=== PATIENT | male | born 1945 | race Caucasian/White ===

== ENCOUNTER 2021-10-25 02:02 | Inpatient (IN) ==
[2021-10-25 02:56] LABS: Basophils # (auto) 0.03 K/uL (0-0.2); Basophils % (auto) 0.7 %; Eosinophils # (auto) 0.19 K/uL (0-0.50); Eosinophils % (auto) 4.6 %; Hematocrit (blood only) 25.6 % (40.1-51.0); Hemoglobin 8.1 g/dl (14.0-18.0); Immature Granulocytes # (auto) 0.02 K/uL (0.00-0.02); Immature Granulocytes % (auto) 0.5 %; Lymphocytes # (auto) 0.22 K/uL (1.2-3.4); Lymphocytes % (auto) 5.4 %; Mean Corpuscular Hemoglobin 29.7 pg (25.0-34.0); Mean Corpuscular Hgb Conc 31.6 g/dL (32.0-36.0); Mean Corpuscular Volume 93.8 fL (80.0-100.0); Mean Platelet Volume 10.8 fL (9.4-12.4); Monocytes # (auto) 0.37 K/uL (0.24-0.82); Neutrophils # (auto) 3.26 K/uL (1.4-6.5); Neutrophils % (auto) 79.8 %; Platelet Count 273 K/uL (130-400); RDW Coefficient of Variation 13.9 % (11.5-14.5); RDW Standard Deviation 47.3 fL (36.4-46.3); Red Blood Count 2.73 M/uL (4.63-6.08); White Blood Count 4.09 K/ul (4.8-10.8)
[2021-10-25] MEDS ORDERED: ONDANSETRON INJ 2 MG/ML 2 ML VIAL ONE (03:07)
[2021-10-25 03:09] LABS: Albumin Level 3.3 gm/dl (3.4-5.0); BUN Creatinine Ratio 20.6 (10-20); Bilirubin,Total 0.5 mg/dl (0.2-1.0); Calcium 8.7 mg/dl (8.5-10.1); Creatinine Clr Calc Pharmacy 29.8 ml/min; Est GFR (African American) 27.2 ml/min; Est GFR (Non-African American) 23.5 ml/min; Magnesium 1.9 mg/dl (1.7-2.4); Potassium 4.9 mmol/L (3.5-5.1)
[2021-10-25 03:10] LABS: INR 1.3 (0.9-1.1); Partial Thromboplastin Ratio 0.9; Partial Thromboplastin Time 24.8 Seconds (21.0-31.0); Prothrombin Time 13.4 Seconds (9.0-12.0)
[2021-10-25 03:24] LABS: Globulin 3.2 gm/dl (2.5-4.0); Total Protein 6.5 gm/dl (6.0-8.3)
[2021-10-25] MEDS ORDERED: ACETAMINOPHEN 1,000 MG/100 ML VIAL IV STA (03:46)
[2021-10-25 04:10] LABS: Appearance Urine Clear (Clear); Bilirubin Urine Negative (Negative); Blood Urine 2+ (Negative); Color Urine Yellow; Glucose Urine UA Negative (Negative); Ketones Urine Negative (Negative); Leukocyte Esterase Urine Negative (Negative); Nitrite Urine Negative (Negative); Protein Urine 1+ (Negative); Urobilinogen Urine Negative (Negative); pH Urine 5.5 (4.5-7.5)
[2021-10-25 04:35] LABS: Bacteria Urine Negative (Negative); Epithelial Cell Urine 0-5 /lpf (0-5); RBC Urine 0-4 /hpf (0-4); WBC Urine 0-5 /hpf (0-5)
[2021-10-25 04:47] LABS: Influenza A virus by PCR Negative (Neg); Influenza B virus by PCR Negative (Neg); RSV by PCR Negative (Neg); SARS CoV2 RNA(COVID-19) InHosp NEGATIVE (Negative)
--- NOTE | 2021-10-25 04:56 | Emergency Department Note ---
Impression & Plan Bilateral cellulitis of lower leg, Anemia, Chronic renal insufficiency, Fall Admit to the [facility] ED Provider Note NAME: DREW ROGER AGE: 76 SEX: M ARRIVES VIA: Ambulance INFORMANT: Patient and his ED PROVIDER(S): Marleny Quiles DO CHIEF COMPLAINT: Fall PLAN: Disposition: Admit to the [facility] Condition: Stable MEDICAL DECISION MAKING: This is a 76-year-old male patient who presents to the emergency department by EMS after he fell at home. Triage Nursing notes reviewed and agree with them. Additional history obtained from his is at the bedside Prior medical records reviewed in the [facility] system Vital Signs: reviewed and remarkable for fever, tachycardia Differential diagnosis: Sepsis, UTI, cellulitis, acute kidney injury, pneumonia ER treatment provided: IV acetaminophen IV Rocephin Diagnostics interpreted by me: ECG: Sinus rhythm at a rate of [address] segment elevation or signs of ischemia. There is no ectopy. Cardiac Monitoring: Normal sinus rhythm at 90 Laboratory studies: See below Imaging studies: As per my interpretation Portable chest x-ray: Cardiomegaly with pulmonary vascular congestion; questionable right lower lobe opacity HPI: 76/M arrives for evaluation of fall. She witnessed the patient suffer a f all at home and she was unable to get him up off the floor. She called EMS. The patient had recently been treated over the past 2 days for cellulitis of the legs. He had ultrasound Dopplers of the legs which were negative for DVT and received an antibiotic shot at his PCP office. Patient was then to be febrile upon presentation here to the emergency department. Patient has become increasingly weak over the past 2 days. ROS: See above HPI for pertinent positives & negatives. A total of 10 systems reviewed and were otherwise negative with the help of the patient's answering questions. MEDICAL HISTORY:Recurrent cellulitis of the leg; hypertension; hypercholesterolemia PAST SURGICAL HISTORY:See Below FAMILY HISTORY:See Below SOCIAL HISTORY:Patient lives with his HOME MEDICATIONS:See list ALLERGIES:See list VITALS:See Below PHYSICAL EXAMINATION: Neuro: The patient is persistently moving about the bed, especially his legs. HEENT: Head - normocephalic and atraumatic. Pupils are equal, round, and reactive to light. Extraocular eye muscles are intact, and sclera are anicteric. Nose - moist nasal mucosa without discharge. Mouth - moist buccal mucosa. Oropharynx is nonerythematous and there is no tonsillar exudate or edema noted. Neck: Supple; no cervical lymphadenopathy noted. Heart: Regular rate and rhythm. There is a normal S1 and S2 with no murmurs, clicks, or gallops appreciated. Lungs: Clear to auscultation bilaterally with no wheezes, rales, or rhonchi. Abdomen: Soft, completely nontender, nondistended, with good bowel sounds. There are no palpable pulsatile masses or hepatosplenomegaly. There is no guarding, rigidity, or rebound noted. Extremities: Erythema to both lower legs of tib/fib region. Skin: Dull, warm and dry with good turgor and no rashes. ED COURSE: Times/Reassessments: 0300: The patient was evaluated in room B 11. A complete history and physical was performed. A septic protocol was performed. An order was placed for continuous cardiac monitoring. The patient was in a sinus tachycardia at 104. Chest x-ray was performed. Patient was given a dose of IV Rocephin. Patient was given an oral dose of Tylenol for his fever. 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 Beliefs That Will Affect Care: None Current Living Situation: Spouse Other Information That Helps Us Care for You: No Feels Safe at Home: Yes Safety Concerns: Feels Safe At This Time Allergies Allergies Allergy/AdvReac Type Severity Reaction Status Date / Time Sulfa (Sulfonamide Allergy Mild rash Verified 12/25/12 11:22 Antibiotics) Home Meds Home Medications Medication Instructions Recorded Confirmed Metoprolol Tartrate (Lopressor) 50 mg PO BID ##0 09/28/09 (Lopressor) Multivitamin 1 tab PO DAILY ##0 09/28/09 Nitroglycerin (Nitrostat) 0.4 mg UT PRN ##0 09/28/09 Tamsulosin Hcl (Flomax *) 0.4 mg PO QAM ##0 09/28/09 Docusate Sodium (Colace *) 100 mg PO Q2D ##0 10/02/09 Methocarbamol (Robaxin) 750 mg PO Q6HWA ##0 10/02/09 Oxycodone Hcl (Oxycontin (Ext Rel) 60 mg PO BID ##0 10/02/09 *) Trazodone Hcl (Desyrel *) 100 mg PO HS ##0 10/02/09 nystatin powder 1 applic transdermal HS ##0 10/02/09 Gabapentin (Neurontin) 800 mg PO BID ##0 10/10/09 Aspirin (Aspirin Tab-Chewable *) 1 tab PO QAM ##0 10/25/09 amlodipine 10 mg tablet 10 mg PO DAILY 10/25/21 10/25/21 citalopram 20 mg tablet 20 mg PO DAILY 10/25/21 10/25/21 fenofibrate micronized 134 mg 134 mg PO DAILY 10/25/21 10/25/21 capsule mirabegron 50 mg tablet,extended 50 mg PO DAILY 10/25/21 10/25/21 release 24 hr (Myrbetriq) prednisone 5 mg tablet 10 mg PO DAILY 10/25/21 10/25/21 solifenacin 10 mg tablet (Vesicare) mg PO 10/25/21 Results & Data (ED) Vital Signs Vital Signs - 24 hr 10/25/21 04:55 10/25/21 04:57 10/25/21 04:30 Temperature 39.2 C H Temperature Source Oral Pulse Rate 99 H Pulse Rate [Apical] Pulse Rate from SpO2 Sensor Respiratory Rate 25 H Respiratory Effort / Characteristics Non-Labored Spontaneous Respiratory Depth Blood Pressure Blood Pressure Mean Pulse Oximetry 90 91 Oxygen Delivery Method Nasal Cannula Oxygen Flow Rate 2.5 10/25/21 04:31 10/25/21 04:31 10/25/21 04:45 Temperature Temperature Source Pulse Rate 100 H 97 H Pulse Rate [Apical] Pulse Rate from SpO2 Sensor Respiratory Rate 23 23 Respiratory Effort / Characteristics Respiratory Depth Blood Pressure 138/53 L Blood Pressure Mean 81 Pulse Oximetry 92 90 Oxygen Delivery Method Oxygen Flow Rate 10/25/21 05:00 10/25/21 05:00 10/25/21 05:15 Temperature Temperature Source Pulse Rate Pulse Rate [Apical] 90 87 Pulse Rate from SpO2 Sensor Respiratory Rate Respiratory Effort / Characteristics Respiratory Depth Blood Pressure Blood Pressure Mean Pulse Oximetry 95 Oxygen Delivery Method Nasal Cannula Oxygen Flow Rate 4 10/25/21 05:30 10/25/21 05:45 10/25/21 05:30 Temperature Temperature Source Pulse Rate Pulse Rate [Apical] 89 Pulse Rate from SpO2 Sensor Respiratory Rate 22 Respiratory Effort / Characteristics Non-Labored Respiratory Depth Normal Blood Pressure Blood Pressure Mean Pulse Oximetry Oxygen Delivery Method Nasal Cannula Oxygen Flow Rate 10/25/21 05:00 10/25/21 05:00 10/25/21 05:15 Temperature Temperature Source Pulse Rate 89 85 Pulse Rate [Apical] Pulse Rate from SpO2 Sensor 89 85 Respiratory Rate 15 23 Respiratory Effort / Characteristics Respiratory Depth Blood Pressure 143/63 H Blood Pressure Mean 89 Pulse Oximetry 90 96 Oxygen Delivery Method Oxygen Flow Rate 10/25/21 05:30 10/25/21 05:30 10/25/21 05:45 Temperature Temperature Source Pulse Rate 84 82 Pulse Rate [Apical] Pulse Rate from SpO2 Sensor 85 82 Respiratory Rate 21 20 Respiratory Effort / Characteristics Respiratory Depth Blood Pressure 149/51 H Blood Pressure Mean 83 Pulse Oximetry 91 94 Oxygen Delivery Method Oxygen Flow Rate 10/25/21 05:56 10/25/21 06:00 10/25/21 06:00 Temperature 38.5 C H Temperature Source Oral Pulse Rate Pulse Rate [Apical] Pulse Rate from SpO2 Sensor Respiratory Rate Respiratory Effort / Characteristics Non-Labored Spontaneous Respiratory Depth Blood Pressure 139/51 L Blood Pressure Mean 80 Pulse Oximetry Oxygen Delivery Method Oxygen Flow Rate 10/25/21 06:00 10/25/21 06:15 10/25/21 06:30 Temperature Temperature Source Pulse Rate 81 88 79 Pulse Rate [Apical] Pulse Rate from SpO2 Sensor Respiratory Rate 21 14 15 Respiratory Effort / Characteristics Respiratory Depth Blood Pressure 155/62 H Blood Pressure Mean 93 Pulse Oximetry 93 98 97 Oxygen Delivery Method Nasal Cannula Oxygen Flow Rate 2.5 Laboratory Data Result diagrams: 10/25/21 02:26 10/25/21 02:26 Lab Results 10/25/21 10/25/21 10/25/21 Range/Units 02:26 02:26 02:26 WBC 4.09 L (4.8-10.8) K/ul RBC 2.73 L (4.63-6.08) M/uL Hgb 8.1 L (14.0-18.0) g/dl Hct 25.6 L (40.1-51.0) % MCV 93.8 (80.0-100.0) fL MCH 29.7 (25.0-34.0) pg MCHC 31.6 L (32.0-36.0) g/dL RDW Std Deviation 47.3 H (36.4-46.3) fL RDW Coeff of Sarah 13.9 (11.5-14.5) % Plt Count 273 (130-400) K/uL MPV 10.8 (9.4-12.4) fL Immature Gran % (Auto) 0.5 % Neut % (Auto) 79.8 % Lymph % (Auto) 5.4 % [place] % (Auto) 9.0 % Eos % (Auto) 4.6 % Baso % (Auto) 0.7 % Neut # (Auto) 3.26 (1.4-6.5) K/uL Lymph # (Auto) 0.22 L (1.2-3.4) K/uL [place] # (Auto) 0.37 (0.24-0.82) K/uL Eos # (Auto) 0.19 (0-0.50) K/uL Baso # (Auto) 0.03 (0-0.2) K/uL Immature Gran # (Auto) 0.02 (0.00-0.02) K/uL PT 13.4 H (9.0-12.0) Seconds INR 1.3 H (0.9-1.1) APTT 24.8 (21.0-31.0) Seconds PTT Ratio 0.9 Sodium 138 (136-145) mmol/L Potassium 4.9 (3.5-5.1) mmol/L Chloride 105 (98-107) mmol/L Carbon Dioxide 25 (21-32) mmol/L Anion Gap 8 (3-11) BUN 52 H (6-23) mg/dl Creatinine 2.52 H (0.6-1.4) mg/dl Est Cr Clr Drug Dosing 29.8 ml/min Est GFR ( Amer) 27.2 ml/min Est GFR (Non-Af Amer) 23.5 ml/min BUN/Creatinine Ratio 20.6 H (10-20) Glucose 124 H (70-99(Fasting)) mg/dl Lactate (0.4-2.0) mmol/L Calcium 8.7 (8.5-10.1) mg/dl Magnesium 1.9 (1.7-2.4) mg/dl Total Bilirubin 0.5 (0.2-1.0) mg/dl AST 28 (13-39) U/L ALT 16 (7-52) U/L Alkaline Phosphatase 39 (34-104) U/L Total Protein 6.5 (6.0-8.3) gm/dl Albumin 3.3 L (3.4-5.0) gm/dl Globulin 3.2 (2.5-4.0) gm/dl Albumin/Globulin Ratio 1.0 (0.9-2) Procalcitonin (0-0.5) ng/ml Urine Color Urine Appearance (Clear) Urine pH (4.5-7.5) Ur Specific [place] (1.000-1.030) Urine Protein (Negative) Urine Glucose (UA) (Negative) Urine Ketones (Negative) Urine Blood (Negative) Urine Nitrite (Negative) Urine Bilirubin (Negative) Urine Urobilinogen (Negative) Ur Leukocyte Esterase (Negative) Urine RBC (0-4) /hpf Urine WBC (0-5) /hpf Ur Epithelial Cells (0-5) /lpf Urine Bacteria (Negative) Lyme Disease IgG Ab (Negative) Lyme Disease IgM Ab (Negative) SARS-CoV-2 (PCR) (Negative) Influenza Type A (PCR) (Neg) Influenza Type B (PCR) (Neg) RSV (RT-PCR) (Neg) 10/25/21 10/25/21 10/25/21 Range/Units 02:26 02:26 03:47 WBC (4.8-10.8) K/ul RBC (4.63-6.08) M/uL Hgb (14.0-18.0) g/dl Hct (40.1-51.0) % MCV (80.0-100.0) fL MCH (25.0-34.0) pg MCHC (32.0-36.0) g/dL RDW Std Deviation (36.4-46.3) fL RDW Coeff of Sarah (11.5-14.5) % Plt Count (130-400) K/uL MPV (9.4-12.4) fL Immature Gran % (Auto) % Neut % (Auto) % Lymph % (Auto) % [place] % (Auto) % Eos % (Auto) % Baso % (Auto) % Neut # (Auto) (1.4-6.5) K/uL Lymph # (Auto) (1.2-3.4) K/uL [place] # (Auto) (0.24-0.82) K/uL Eos # (Auto) (0-0.50) K/uL Baso # (Auto) (0-0.2) K/uL Immature Gran # (Auto) (0.00-0.02) K/uL PT (9.0-12.0) Seconds INR (0.9-1.1) APTT (21.0-31.0) Seconds PTT Ratio Sodium (136-145) mmol/L Potassium (3.5-5.1) mmol/L Chloride (98-107) mmol/L Carbon Dioxide (21-32) mmol/L Anion Gap (3-11) BUN (6-23) mg/dl Creatinine (0.6-1.4) mg/dl Est Cr Clr Drug Dosing ml/min Est GFR ( Amer) ml/min Est GFR (Non-Af Amer) ml/min BUN/Creatinine Ratio (10-20) Glucose (70-99(Fasting)) mg/dl Lactate 1.1 (0.4-2.0) mmol/L Calcium (8.5-10.1) mg/dl Magnesium (1.7-2.4) mg/dl Total Bilirubin (0.2-1.0) mg/dl AST (13-39) U/L ALT (7-52) U/L Alkaline Phosphatase (34-104) U/L Total Protein (6.0-8.3) gm/dl Albumin (3.4-5.0) gm/dl Globulin (2.5-4.0) gm/dl Albumin/Globulin Ratio (0.9-2) Procalcitonin 0.11 (0-0.5) ng/ml Urine Color Yellow Urine Appearance Clear (Clear) Urine pH 5.5 (4.5-7.5) Ur Specific [place] 1.020 (1.000-1.030) Urine Protein 1+ H (Negative) Urine Glucose (UA) Negative (Negative) Urine Ketones Negative (Negative) Urine Blood 2+ H (Negative) Urine Nitrite Negative (Negative) Urine Bilirubin Negative (Negative) Urine Urobilinogen Negative (Negative) Ur Leukocyte Esterase Negative (Negative) Urine RBC 0-4 (0-4) /hpf Urine WBC 0-5 (0-5) /hpf Ur Epithelial Cells 0-5 (0-5) /lpf Urine Bacteria Negative (Negative) Lyme Disease IgG Ab Negative (Negative) Lyme Disease IgM Ab Negative (Negative) SARS-CoV-2 (PCR) (Negative) Influenza Type A (PCR) (Neg) Influenza Type B (PCR) (Neg) RSV (RT-PCR) (Neg) 10/25/21 Range/Units 03:59 WBC (4.8-10.8) K/ul RBC (4.63-6.08) M/uL Hgb (14.0-18.0) g/dl Hct (40.1-51.0) % MCV (80.0-100.0) fL MCH (25.0-34.0) pg MCHC (32.0-36.0) g/dL RDW Std Deviation (36.4-46.3) fL RDW Coeff of Sarah (11.5-14.5) % Plt Count (130-400) K/uL MPV (9.4-12.4) fL Immature Gran % (Auto) % Neut % (Auto) % Lymph % (Auto) % [place] % (Auto) % Eos % (Auto) % Baso % (Auto) % Neut # (Auto) (1.4-6.5) K/uL Lymph # (Auto) (1.2-3.4) K/uL [place] # (Auto) (0.24-0.82) K/uL Eos # (Auto) (0-0.50) K/uL Baso # (Auto) (0-0.2) K/uL Immature Gran # (Auto) (0.00-0.02) K/uL PT (9.0-12.0) Seconds INR (0.9-1.1) APTT (21.0-31.0) Seconds PTT Ratio Sodium (136-145) mmol/L Potassium (3.5-5.1) mmol/L Chloride (98-107) mmol/L Carbon Dioxide (21-32) mmol/L Anion Gap (3-11) BUN (6-23) mg/dl Creatinine (0.6-1.4) mg/dl Est Cr Clr Drug Dosing ml/min Est GFR ( Amer) ml/min Est GFR (Non-Af Amer) ml/min BUN/Creatinine Ratio (10-20) Glucose (70-99(Fasting)) mg/dl Lactate (0.4-2.0) mmol/L Calcium (8.5-10.1) mg/dl Magnesium (1.7-2.4) mg/dl Total Bilirubin (0.2-1.0) mg/dl AST (13-39) U/L ALT (7-52) U/L Alkaline Phosphatase (34-104) U/L Total Protein (6.0-8.3) gm/dl Albumin (3.4-5.0) gm/dl Globulin (2.5-4.0) gm/dl Albumin/Globulin Ratio (0.9-2) Procalcitonin (0-0.5) ng/ml Urine Color Urine Appearance (Clear) Urine pH (4.5-7.5) Ur Specific [place] (1.000-1.030) Urine Protein (Negative) Urine Glucose (UA) (Negative) Urine Ketones (Negative) Urine Blood (Negative) Urine Nitrite (Negative) Urine Bilirubin (Negative) Urine Urobilinogen (Negative) Ur Leukocyte Esterase (Negative) Urine RBC (0-4) /hpf Urine WBC (0-5) /hpf Ur Epithelial Cells (0-5) /lpf Urine Bacteria (Negative) Lyme Disease IgG Ab (Negative) Lyme Disease IgM Ab (Negative) SARS-CoV-2 (PCR) NEGATIVE (Negative) Influenza Type A (PCR) Negative (Neg) Influenza Type B (PCR) Negative (Neg) RSV (RT-PCR) Negative (Neg) Administered Medications Amlodipine Besylate (Amlodipine Besylate 5 Mg Tab) 10 mg PO DAILY [facility] Stop: 11/24/21 09:14 Last Admin: 10/25/21 10:14 Dose: 10 mg Documented By: TLM Aspirin (Aspirin 81 Mg Ectab) 81 mg PO QAM [facility] Stop: 11/24/21 09:14 Last Admin: 10/25/21 10:14 Dose: 81 mg Documented By: TLM Calcium Carbonate (Calcium Carbonate 500 Mg Chewable Tab) 500 mg PO Q6H PRN PRN Reason: Heartburn Stop: 11/24/21 20:37 Last Admin: 10/25/21 22:42 Dose: 500 mg Documented By: ED Citalopram Hydrobromide (Citalopram 20 Mg Tab) 20 mg PO DAILY [facility] Stop: 11/24/21 09:14 Last Admin: 10/25/21 10:15 Dose: 20 mg Documented By: TLM Docusate Sodium (Docusate Sodium 100 Mg Cap) 100 mg PO Q2D@0900 [facility] Stop: 11/24/21 09:14 Last Admin: 10/25/21 10:15 Dose: 100 mg Documented By: TLM Heparin Sodium (Porcine) (Heparin Sod 5,000 Unit/0.5 Ml Vial) 5,000 units SQ Q8 [facility] Stop: 11/24/21 13:59 Last Admin: 10/25/21 20:18 Dose: 5,000 units Documented By: Admin: 10/25/21 13:47 Dose: Not Given Documented By: TLM Sodium Chloride (Nss 1000ml) 1,000 mls @ 70 mls/hr IV .[id number] [facility] Stop: 10/26/21 12:06 Last Admin: 10/26/21 00:31 Dose: 70 mls/hr Documented By: Infusion: 10/25/21 22:42 Dose: 70 mls/hr Documented By: Infusion: 10/25/21 14:03 Dose: 70 mls/hr Documented By: Admin: 10/25/21 10:06 Dose: 100 mls/hr Documented By: MARIONM Doxycycline Hyclate 100 mg/ (Dextrose) 110 mls @ 50 mls/hr IV Q12H [facility] Stop: 11/01/21 09:59 Last Infusion: 10/26/21 01:11 Dose: 0 mls/hr Documented By: Admin: 10/25/21 22:42 Dose: 50 mls/hr Documented By: Infusion: 10/25/21 13:00 Dose: 0 mls/hr Documented By: Admin: 10/25/21 10:48 Dose: 50 mls/hr Documented By: TLM Piperacillin Sod/Tazobactam (Sod 3.375 gm/ Dextrose) 115 mls @ 28.75 mls/hr IV Q8H [facility]; Protocol Stop: 11/01/21 09:59 Last Admin: 10/26/21 02:04 Dose: 28.8 mls/hr Documented By: Infusion: 10/25/21 22:49 Dose: 0 mls/hr Documented By: Admin: 10/25/21 17:30 Dose: 28.8 mls/hr Documented By: Infusion: 10/25/21 14:48 Dose: 0 mls/hr Documented By: Admin: 10/25/21 10:48 Dose: 28.8 mls/hr Documented By: TLM Promethazine HCl 12.5 mg/ (Sodium Chloride) 50.5 mls @ 202 mls/hr IV Q6H PRN PRN Reason: Nausea And Vomiting Stop: 11/25/21 00:56 Last Infusion: 10/26/21 02:07 Dose: 0 mls/hr Documented By: Admin: 10/26/21 01:45 Dose: 202 mls/hr Documented By: ED Metoprolol Tartrate (Metoprolol Tartrate 50 Mg Tab) 50 mg PO BID [facility] Stop: 11/24/21 09:14 Last Admin: 10/25/21 20:15 Dose: 50 mg Documented By: Admin: 10/25/21 10:15 Dose: 50 mg Documented By: JYOTI Mirabegron (Mirabegron Er 25 Mg Tab) 50 mg PO DAILY [facility] Stop: 11/24/21 09:14 Last Admin: 10/25/21 10:15 Dose: 50 mg Documented By: JYOTI Miscellaneous (Fenofibrate Micronized 134 Mg - Order Awaiting Action) 1 each N /A QS [facility] Stop: 11/24/21 15:59 Last Admin: 10/26/21 00:32 Dose: Not Given Documented By: Admin: 10/25/21 16:10 Dose: Not Given Documented By: JYOTI Multivitamins (Multivitamin Tab) 1 tab PO DAILY [facility] Stop: 11/24/21 09:14 Last Admin: 10/25/21 10:15 Dose: 1 tab Documented By: JYOTI Prednisone (Prednisone 10 Mg Tablet) 10 mg PO DAILY [facility] Stop: 11/24/21 09:14 Last Admin: 10/25/21 10:47 Dose: 10 mg Documented By: TLM Tamsulosin HCl (Tamsulosin Hcl 0.4 Mg Cap) 0.4 mg PO QAM [facility] Stop: 11/24/21 09:14 Last Admin: 10/25/21 10:47 Dose: 0.4 mg Documented By: TLShama Discontinued Medications Acetaminophen (Ofirmev) 1,000 mg in 100 mls @ 400 mls/hr IV NOW STA Stop: 10/25/21 04:00 Last Infusion: 10/25/21 04:15 Dose: 0 mls/hr Documented By: Admin: 10/25/21 03:56 Dose: 400 mls/hr Documented By: SS Ceftriaxone Sodium (Rocephin) 2,000 mg in 70 mls @ 140 mls/hr IV NOW STA Stop: 10/25/21 05:32 Last Infusion: 10/25/21 05:58 Dose: 0 mls/hr Documented By: Admin: 10/25/21 05:23 Dose: 140 mls/hr Documented By: AQUILINO Ondansetron HCl (Ondansetron Inj 2 Mg/Ml 2 Ml Vial) Confirm Administered Dose 4 mg .ROUTE .STK-MED ONE Stop: 10/25/21 03:08 Last Admin: 10/25/21 03:11 Dose: 4 mg Documented By: KATHERIN Discharge Plan Visit Data Chief Complaint: Fever Stated Complaint: Fall, Weakness, AMS, Fever ED Provider: Marleny Quiles Discharge Problem: Bilateral cellulitis of lower leg, Anemia, Chronic renal insufficiency, Fall Patient Disposition: Admitted As Inpatient Discharge Instructions Interventions: ED Discharge Assessment Last Done: 10/25/21 09:07 : Anemia Qualifiers: Anemia type: other cause Other causes of anemia: chronic disease, other Qualified Code(s): D63.8 - Anemia in other chronic diseases classified elsewhere Fall Qualifiers: Encounter type: initial encounter Qualified Code(s): W19.XXXA - Unspecified fall, initial encounter
[2021-10-25] MEDS ORDERED: cefTRIAXone SODIUM 2,000 MG/70 ML BAG IV STA (05:03)
--- NOTE | 2021-10-25 06:36 | XRay Report ---
XR chest 1V portable CLINICAL HISTORY: Sepsis. COMPARISON STUDY: Chest radiograph September 09, 2009. 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 No pneumothorax or pleural effusion is noted. There is moderate enlargement of the cardiac silhouette. Hilar enlargemen t is noted. Pulmonary vasculature is prominent. No consolidation is identified. IMPRESSION: 1. Cardiomegaly with pulmonary vascular congestion and possible mild pulmonary edema. Less likely, in terstitial thickening could be related to an infectious process. Radiographic follow-up is recommende d. 2. Bilateral hilar enlargement, possibly due to dilated pulmonary arteries. ACT 112: Negative or not required by law. Electronically signed by: Deny Parmar M.D. 10/25/2021 6:33 AM
[2021-10-25] MEDS ORDERED: amLODIPine BESYLATE 5 MG TAB PO SCH (09:15)
[2021-10-25] MEDS ORDERED: NITROGLYCERIN SL 0.4 MG/TAB TAB SL PRN (09:15)
--- NOTE | 2021-10-25 09:22 | History and Physical Report ---
DATE OF ADMISSION: 10/25/2021. CHIEF COMPLAINT: Fever and fall. HISTORY OF PRESENT ILLNESS: A 76-year-old male with past medical history significant for hyperlipidemia, hypertension, obesity, BPH, chronic kidney disease stage III, chronic pain, osteoarthritis, anemia of chronic kidney disease, depression, statin intolerance, who presents with fall. The patient lives at home with his . As per , he fell in the night while ambulating on the rug and he did not hit his head. No loss of consciousness and he was also having fever, that is the reason he was brought in here. Currently, the patient is sleeping, but arousable. Denies any headache. He says he is having some neck pain, but able to move his neck okay. Denies any cough, no chest pain, no shortness of breath, no back pain, no abdominal pain, no nausea. Normal bowel and bladder movements as per the patient. As per the , she noticed redness in the legs on Saturday and she went to clinic on Saturday, they gave a Rocephin shot and Bactrim. The redness in the legs is much improved, but still having fevers as per . Hemodynamically stable. Lactic acid is okay. As per the , he uses a CPAP in the night when he sleeps and he had a fourth COVID shot on 10/09, lately seems more weak and tired. ALLERGIES: SULFA ANTIBIOTICS. PAST MEDICAL HISTORY: As mentioned above. PAST SURGICAL HISTORY: Left knee total arthroplasty. MEDICATIONS: As per the Epic, the patient is on Bactrim started on 10/23/2021, supposed to be done by 11/02/2021. Prednisone 10 mg p.o. daily, gabapentin 800 mg p.o. b.i.d., Myrbetriq 50 mg p.o. daily, morphine sulfate ER 60 mg p.o. b.i.d., Flomax 0.4 mg p.o. daily, solifenacin succinate 10 mg p.o. daily, citalopram 20 mg p.o. daily, metoprolol tartrate 50 mg p.o. b.i.d., fenofibrate micronized 134 mg p.o. daily, trazodone 100 mg p.o. at bedtime, amlodipine 10 mg p.o. daily, nitroglycerin 0.4 mg sublingual p.r.n., methocarbamol 750 mg p.o. q.i.d. p.r.n., Flonase 2 sprays into each nostril daily, vitamin D 25 mcg p.o. daily, Colace 100 mg p.o. b.i.d., aspirin 81 mg p.o. daily, multivitamins 1 tablet daily, Tums p.r.n. FAMILY HISTORY: Significant for mother had arthritis, hypertension, ME; father had ME, hypertension, neurological disorder. SOCIAL HISTORY: . No smoking. Alcohol rarely. No drug use. REVIEW OF SYSTEMS: As per HPI. Could not get complete review of systems as the patient is somewhat drowsy. PHYSICAL EXAMINATION: GENERAL: The patient is drowsy, but arousable, alert and oriented x3. VITAL SIGNS: Temperature T-max 39.5, pulse 79, respiratory rate 15, blood pressure 150/62, oxygen 97% on 2.5 liters. HEENT: Pupils equal, round and reactive to light. Oral mucosa dry. NECK: No JVD. No neck masses. Supple. CARDIOVASCULAR: S1 and S2 heard. Regular rate and rhythm. No murmur, no gallop. RESPIRATORY SYSTEM: Normal AP diameter. No accessory muscle use. No wheezing, no crackles. ABDOMEN: Soft, bowel sounds present, nontender, no distention. CENTRAL NERVOUS SYSTEM: Drowsy, but alert and oriented. No facial droop. Speech is okay, answers simple questions. Moves extremities. EXTREMITIES: Bilateral lower extremity chronic skin changes senile, erythematous until below the knee and warm on palpation. LABORATORY DATA: WBC 4.09, hemoglobin 8.1, hematocrit 25.6, platelets 273. PT 13.4, INR 1.3. Sodium 138, potassium 4.9, chloride 105, bicarbonate 25, BUN 52, creatinine 2.5, serum glucose 124, lactate 1.1, calcium 8.7, magnesium 1.9, total bilirubin 0.5, AST 28, ALT 16, alkaline phosphatase 39. Urinalysis unremarkable. SARS-CoV-2 PCR negative. Influenza A and B PCR negative. RSV PCR negative. Chest x-ray: Cardiomegaly with pulmonary vascular congestion, possible mild pulmonary edema, less likely interstitial thickening, could be related to infectious process. EKG: Normal sinus rhythm at a rate of 95, nonspecific ST abnormalities. ASSESSMENT AND PLAN: This 76-year-old male presents with fever and fall. 1. Fever: Mostly secondary to lower extremity cellulitis, questionable pneumonia. Just had a Rocephin shot and Bactrim as an outpatient yesterday. Redness in the leg started on Saturday as per the patient's ; she states that after the Rocephin shot, they are much improved. We will continue with Zosyn and doxycycline. Follow the cultures. Follow lyme screen. Fluids normal saline IV 100 mL per hour into 2 liters. Closely monitor. 2. Acute kidney injury on chronic kidney disease stage III: Baseline creatinine seems to be around 1.5, it was at 2.1 at one time and his non-steroidal anti- inflammatory drug was stopped and he was placed on prednisone for his arthritis by Nephrology. It is 2.5 today. Getting fluids. Avoid nephrotoxic agents. Monitor the laboratories. 3. Arthritis: Continue his home pain medication and MS Contin 60 mg b.i.d. and prednisone. Robaxin p.r.n. 4. Urinary urgency and benign prostatic hyperplasia: Continue his Myrbetriq, Flomax and VESIcare. 5. Hypertension: On metoprolol, amlodipine. We will monitor the blood pressure. 6. Hyperlipidemia: On fenofibrate. 7. Depression: On citalopram. 8. Anemia due to chronic kidney disease stage III: His hemoglobin is 8.1. His hemoglobin is mostly around 8-9 as an outpatient. We will check stool for Hemoccult and iron studies, vitamin B12, and folate levels. 9. Deep venous thrombosis prophylaxis: Sequential compression devices for now. DISPOSITION: Closely monitor in the med-tele. PT/OT prior to discharge. Social service to help with discharge planning. Level 1, full code. Job ID: [id number] [facility]
[2021-10-25] MEDS: SODIUM CHLORIDE 0.9% 1000ML 1,000 ML IV SCH (10:06)
[2021-10-25] MEDS: ASPIRIN 81 MG ECTAB PO SCH (10:14)
[2021-10-25] MEDS: MIRABEGRON ER 25 MG TAB PO SCH (10:15)
[2021-10-25] MEDS: METOPROLOL TARTRATE 50 MG TAB PO SCH ×2 (10:15→20:15)
[2021-10-25] MEDS: CITALOPRAM 20 MG TAB PO SCH (10:15)
[2021-10-25] MEDS: MULTIVITAMIN TAB PO SCH (10:15)
[2021-10-25] MEDS: DOCUSATE SODIUM 100 MG CAP PO SCH (10:15)
[2021-10-25] MEDS: predniSONE 10 MG TABLET PO SCH (10:47)
[2021-10-25] MEDS: TAMSULOSIN HCL 0.4 MG CAP PO SCH (10:47)
[2021-10-25] MEDS: DOXYCYCLINE HYCLATE 100 MG in DEXTROSE 5% 100 ML IV SCH ×2 (10:48→22:42)
[2021-10-25] MEDS: PIPERACILLIN/TAZOBACTAM 3.375 GM in DEXTROSE 5% 100 ML IV SCH ×2 (10:48→17:30)
[2021-10-25 10:57] LABS: Procalcitonin 0.11 ng/ml (0-0.5)
[2021-10-25 11:03] LABS: Lyme Ab IgG w/WB Rflx Negative (Negative); Lyme Ab IgM w/WB Rflx Negative (Negative)
[2021-10-25] MEDS: HEPARIN SOD 5,000 UNIT/0.5 ML VIAL SQ SCH ×2 (13:47→20:18)
--- NOTE | 2021-10-25 20:52 | Communication Note ---
Date of Service: October 25, 2021 Pt was seen and examined for follow up of STEFFI, fall and fever. CXR showed Cardiomegaly with pulmonary vascular congestion and possible mild pulmonary edema. Bilateral hilar enlargement, possibly due to dilated pulmonary arteries. Currently on Zosyn and doxycycline.Blood cx pending. Continue monitor closely. MD Nia
[2021-10-25] MEDS: CALCIUM CARBONATE 500 MG CHEWABLE TAB PO PRN (22:42)
[2021-10-26] MEDS: SODIUM CHLORIDE 0.9% 1000ML 1,000 ML IV SCH (00:31)
[2021-10-26] MEDS: PROMETHAZINE HCL 12.5 MG in SODIUM CHLORIDE 0.9% 50 ML IV PRN ×2 (01:45→22:29)
[2021-10-26] MEDS: PIPERACILLIN/TAZOBACTAM 3.375 GM in DEXTROSE 5% 100 ML IV SCH ×3 (02:04→17:46)
[2021-10-26] MEDS ORDERED: amLODIPine BESYLATE 5 MG TAB PO SCH (04:30)
[2021-10-26] MEDS: METOPROLOL TARTRATE 50 MG TAB PO SCH ×2 (04:43→20:21)
[2021-10-26] MEDS: HEPARIN SOD 5,000 UNIT/0.5 ML VIAL SQ SCH ×3 (06:06→20:23)
[2021-10-26] MEDS: ACETAMINOPHEN 325 MG TAB PO PRN ×2 (06:08→21:41)
[2021-10-26 06:26] LABS: Basophils # (auto) 0.01 K/uL (0-0.2); Basophils % (auto) 0.3 %; Eosinophils # (auto) 0.08 K/uL (0-0.50); Eosinophils % (auto) 2.4 %; Hematocrit (blood only) 26.5 % (40.1-51.0); Hemoglobin 8.4 g/dl (14.0-18.0); Immature Granulocytes # (auto) 0.02 K/uL (0.00-0.02); Immature Granulocytes % (auto) 0.6 %; Lymphocytes # (auto) 0.54 K/uL (1.2-3.4); Lymphocytes % (auto) 16.5 %; Mean Corpuscular Hemoglobin 29.6 pg (25.0-34.0); Mean Corpuscular Hgb Conc 31.7 g/dL (32.0-36.0); Mean Corpuscular Volume 93.3 fL (80.0-100.0); Mean Platelet Volume 11.2 fL (9.4-12.4); Monocytes # (auto) 0.48 K/uL (0.24-0.82); Monocytes % (auto) 14.7 %; Neutrophils # (auto) 2.14 K/uL (1.4-6.5); Neutrophils % (auto) 65.5 %; Platelet Count 262 K/uL (130-400); RDW Coefficient of Variation 13.4 % (11.5-14.5); RDW Standard Deviation 46.3 fL (36.4-46.3); Red Blood Count 2.84 M/uL (4.63-6.08); White Blood Count 3.27 K/ul (4.8-10.8)
[2021-10-26 06:43] LABS: Iron 15 mcg/dl (35-175); Total Iron Binding Cap Calc 178 mcg/dl (250-450); Transferrin (FE) Percent Satur 8 % (20-50); Unsaturated Iron Binding Cap 163 mcg/dl (155-355)
[2021-10-26 06:44] LABS: Calcium 8.3 mg/dl (8.5-10.1); Creatinine Clr Calc Pharmacy 42.7 ml/min; Est GFR (African American) 43.8 ml/min; Est GFR (Non-African American) 37.8 ml/min; Magnesium 1.9 mg/dl (1.7-2.4)
[2021-10-26 07:12] LABS: Folate (Folic Acid) > 22.30 ng/ml (>5.38)
[2021-10-26 07:13] LABS: Vitamin B12 730 pg/ml (180-914)
[2021-10-26] MEDS: ASPIRIN 81 MG ECTAB PO SCH (08:33)
[2021-10-26] MEDS: MULTIVITAMIN TAB PO SCH (08:33)
[2021-10-26] MEDS: TAMSULOSIN HCL 0.4 MG CAP PO SCH (08:33)
[2021-10-26] MEDS: CITALOPRAM 20 MG TAB PO SCH (08:33)
[2021-10-26] MEDS: MIRABEGRON ER 25 MG TAB PO SCH (08:33)
[2021-10-26] MEDS: predniSONE 10 MG TABLET PO SCH (08:34)
[2021-10-26] MEDS: FERROUS SULFATE 325 MG TAB PO SCH (09:25)
[2021-10-26] MEDS: DOXYCYCLINE HYCLATE 100 MG in DEXTROSE 5% 100 ML IV SCH ×2 (10:56→22:51)
[2021-10-26] MEDS: CALCIUM CARBONATE 500 MG CHEWABLE TAB PO PRN (20:21)
--- NOTE | 2021-10-26 23:40 | Electrocardiogram Report ---
Test Reason : Blood Pressure : / mmHG Vent. Rate : 095 BPM Atrial Rate : 095 BPM P-R Int : 202 ms QRS Dur : 102 ms QT Int : 366 ms P-R-T Axes : 068 058 032 degrees QTc Int : 459 ms Normal sinus rhythm Nonspecific ST abnormality Abnormal ECG When compared with ECG of 09-SEP-2009 16:49, Vent. rate has increased BY 32 BPM Confirmed by Ghulam Doss ([id number]) on 10/26/2021 11:40:42 PM Referred By: REFERRED SELF Confirmed By:Ghulam Doss
--- NOTE | 2021-10-26 23:48 | Communication Note ---
Date of Service: October 26, 2021 Made aware by RN of uncontrolled blood pressure. SBP 180s to 200s today. Heart rate 60 to 80s Patient with nausea symptoms without headache as per RN.. He last 24 hours. AP Hypertensive urgency Change Lopressor to Coreg Will relay to AM provider.
--- NOTE | 2021-10-26 23:55 | Hospitalist Progress Note ---
Date of Service October 26, 2021 Assessment & Plan (1) Fever: Plan: Possible related to lower extremity cellulitis, questionable pneumonia. Received Rocephin shot and Bactrim as an outpatient yesterday. Blood cx negative Continue with Zosyn and doxycycline. Clinically improved . Acute kidney injury on chronic kidney disease stage III Baseline creatinine seems to be around 1.5 Will avoid Bactrim (received only 1 dose outpatient) Received IV abx Creatinine improved to 1.7 Continue monitor BMP . Arthritis: Continue his home pain medication and MS Contin 60 mg b.i.d. and prednisone. Robaxin p.r.n. Urinary urgency Benign prostatic hyperplasia: Continue his Myrbetriq, Flomax and VESIcare. Hypertension: BP elevated possible due to hospital setting Continue metoprolol, amlodipine. Continue monitor BP Hyperlipidemia: On fenofibrate. Depression: On citalopram. Anemia due to chronic kidney disease stage III: Hemoglobin is 8.1 on admission with baseline hgb around 8-9. FOBT negative Pt said that he had colonoscopy done about 3 to 4 years ago that was normal Continue monitor DVT px on SCD Disposition Possible discharge in am Admission and Anticipated Discharge Date Admission Date: October 25, 2021 Subjective Pt was seen and examined for follow up of STEFFI, fall and fever Lying in bed with no acute distress watching TV Pt said that he feels fine He is very anxious to go home Denies any chest pain, palpitation, dizziness and SOB Review of Systems Review of Systems: All systems reviewed & are unremarkable except as noted in Subjective Physical Exam Physical Exam: General- No acute distress Head- atraumatic Eyes- PERRL, EOMI, ENT- oropharynx clear Neck- supple, no JVD Lungs- clear to auscultation Heart- regular rhythm; no murmur Abdomen- normal bowel sounds, soft, nontender Extremities- left leg erythema and tenderness improve Neuro- alert, oriented x 3; PERRL, EOMI; no facial palsy; no dysarthria Skin- warm & dry Results & Data Results & Data ([facility]) Vital Signs (Past 12 Hours) Vital Signs Temp Pulse Pulse Resp BP BP Pulse Ox 10/26/21 23:05 36.8 C 80 18 207/66 H 97 10/26/21 18:59 36.8 C 85 19 184/79 H 94 10/26/21 15:25 36.9 C 77 19 191/71 H 91 08/11/22 14:26 80 O2 Del Method O2 Flow Rate 10/26/21 23:05 Nasal Cannula 2 10/26/21 18:59 Room Air 10/26/21 15:25 Room Air 10/26/21 14:26
[2021-10-27] MEDS: carvediloL 3.125 MG TAB PO SCH ×2 (00:17→07:56)
[2021-10-27] MEDS: PIPERACILLIN/TAZOBACTAM 3.375 GM in DEXTROSE 5% 100 ML IV SCH ×2 (01:46→11:35)
[2021-10-27] MEDS: CALCIUM CARBONATE 500 MG CHEWABLE TAB PO PRN (03:19)
[2021-10-27] MEDS ORDERED: METOCLOPRAMIDE HCL INJ 5 MG/ML 2 ML VIAL IV ONE (03:27)
[2021-10-27] MEDS ORDERED: amLODIPine BESYLATE 5 MG TAB PO SCH (03:30)
[2021-10-27] MEDS: HEPARIN SOD 5,000 UNIT/0.5 ML VIAL SQ SCH (06:41)
[2021-10-27] MEDS ORDERED: hydrALAZINE HCL 20 MG/ML VIAL IV STA (07:45)
[2021-10-27 07:51] LABS: BUN Creatinine Ratio 19.5 (10-20); Blood Urea Nitrogen 29 mg/dl (6-23); Calcium 8.8 mg/dl (8.5-10.1); Carbon Dioxide 19 mmol/L (21-32); Chloride 100 mmol/L (98-107); Est GFR (African American) 51.4 ml/min; Est GFR (Non-African American) 44.3 ml/min; Glucose 128 mg/dl (70-99(Fasting))
[2021-10-27] MEDS: PROMETHAZINE HCL 12.5 MG in SODIUM CHLORIDE 0.9% 50 ML IV PRN (07:55)
[2021-10-27] MEDS: CITALOPRAM 20 MG TAB PO SCH (07:56)
[2021-10-27] MEDS: predniSONE 10 MG TABLET PO SCH (07:56)
[2021-10-27] MEDS: ASPIRIN 81 MG ECTAB PO SCH (07:57)
[2021-10-27] MEDS: TAMSULOSIN HCL 0.4 MG CAP PO SCH (07:57)
[2021-10-27] MEDS: MULTIVITAMIN TAB PO SCH (07:57)
[2021-10-27] MEDS: MIRABEGRON ER 25 MG TAB PO SCH (07:57)
[2021-10-27] MEDS: FERROUS SULFATE 325 MG TAB PO SCH (07:57)
[2021-10-27] MEDS: DOCUSATE SODIUM 100 MG CAP PO SCH (07:59)
[2021-10-27] MEDS: ACETAMINOPHEN 325 MG TAB PO PRN (08:05)
--- NOTE | 2021-10-27 09:03 | XRay Report ---
XR chest 1V portable CLINICAL HISTORY: f/u COMPARISON STUDY: Chest radiograph October 25, 2021. FINDINGS: Severe osteoarthritis of the glenohumeral joint is incidentally noted. There is no pneumoth orax. There are trace bilateral pleural effusions. Cardiomegaly is again noted. Asymmetric interstiti al thickening and multifocal airspace opacities within the right lung are present. IMPRESSION: 1. Progression of airspace opacities and interstitial thickening within the right lung. This favors m ultifocal pneumonia. Although less likely, asymmetric pulmonary edema could appear similar. Continued radiographic follow-up to ensure resolution is recommended. 2. Cardiomegaly. Trace bilateral pleural effusions. ACT 112: Negative or not required by law. Electronically signed by: Deny Parmar M.D. 10/27/2021 9:01 AM
[2021-10-27 09:11] LABS: Potassium 3.9 mmol/L (3.5-5.1)
[2021-10-27] MEDS: DOXYCYCLINE HYCLATE 100 MG in DEXTROSE 5% 100 ML IV SCH (09:54)
[2021-10-27] MEDS ORDERED: AMOXICILLIN/CLAVULANATE 875 MG TAB PO SCH (10:55)
--- NOTE | 2021-10-27 14:28 | Discharge Summary ---
Date of Service October 27, 2021 Admission HPI Per Admitting Provider CHIEF COMPLAINT: Fever and fall. HISTORY OF PRESENT ILLNESS: A 76-year-old male with past medical history significant for hyperlipidemia, hypertension, obesity, BPH, chronic kidney disease stage III, chronic pain, osteoarthritis, anemia of chronic kidney disease, depression, statin intolerance, who presents with fall. The patient lives at home with his . As per , he fell in the night while ambulating on the rug and he did not hit his head. No loss of consciousness and he was also having fever, that is the reason he was brought in here. Currently, the patient is sleeping, but arousable. Denies any headache. He says he is having some neck pain, but able to move his neck okay. Denies any cough, no chest pain, no shortness of breath, no back pain, no abdominal pain, no nausea. Normal bowel and bladder movements as per the patient. As per the , she noticed redness in the legs on Saturday and she went to clinic on Saturday, they gave a Rocephin shot and Bactrim. The redness in the legs is much improved, but still having fevers as per . Hemodynamically stable. Lactic acid is okay. As per the , he uses a CPAP in the night when he sleeps and he had a fourth COVID shot on 10/09, lately seems more weak and tired. Admission Exam Per Admitting Provider GENERAL: The patient is drowsy, but arousable, alert and oriented x3. VITAL SIGNS: Temperature T-max 39.5, pulse 79, respiratory rate 15, blood pressure 150/62, oxygen 97% on 2.5 liters. HEENT: Pupils equal, round and reactive to light. Oral mucosa dry. NECK: No JVD. No neck masses. Supple. CARDIOVASCULAR: S1 and S2 heard. Regular rate and rhythm. No murmur, no gallop. RESPIRATORY SYSTEM: Normal AP diameter. No accessory muscle use. No wheezing, no crackles. ABDOMEN: Soft, bowel sounds present, nontender, no distention. CENTRAL NERVOUS SYSTEM: Drowsy, but alert and oriented. No facial droop. Speech is okay, answers simple questions. Moves extremities. EXTREMITIES: Bilateral lower extremity chronic skin changes senile, erythematous until below the knee and warm on palpation. Principal Diagnosis Fever Pneumonia Acute kidney injury on chronic kidney disease stage III Arthritis: Urinary urgency Benign prostatic hyperplasia: Hypertension: Hyperlipidemia: Depression: Anemia due to chronic kidney disease stage III: Discharge Exam General- No acute distress Head- atraumatic Eyes- PERRL, EOMI, ENT- oropharynx clear Neck- supple, no JVD Lungs- clear to auscultation Heart- regular rhythm; no murmur Abdomen- normal bowel sounds, soft, nontender Extremities- left leg erythema and tenderness improve Neuro- alert, oriented x 3; PERRL, EOMI; no facial palsy; no dysarthria Skin- warm & dry Discharge Data Allergies Allergy/AdvReac Type Severity Reaction Status Date / Time Sulfa (Sulfonamide Allergy Mild rash Verified 12/25/12 11:22 Antibiotics) Consultations 10/25/21 05:05 ED Decision to Admit Stat Ordered Studies XR chest 1V portable CLINICAL HISTORY: Sepsis. COMPARISON STUDY: Chest radiograph September 09, 2009. 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 No pneumothorax or pleural effusion is noted. There is moderate enlargement of the cardiac silhouette. Hilar enlargement is noted. Pulmonary vasculature is prominent. No consolidation is identified. IMPRESSION: 1. Cardiomegaly with pulmonary vascular congestion and possible mild pulmonary edema. Less likely, interstitial thickening could be related to an infectious process. Radiographic follow-up is recommended. 2. Bilateral hilar enlargement, possibly due to dilated pulmonary arteries. ACT 112: Negative or not required by law. Electronically signed by: Deny Parmar M.D. 10/25/2021 6:33 AM Dictated:10/25/21630 Transcribed: 10/25/21630 XR chest 1V portable CLINICAL HISTORY: f/u COMPARISON STUDY: Chest radiograph October 25, 2021. FINDINGS: Severe osteoarthritis of the glenohumeral joint is incidentally noted. There is no pneumothorax. There are trace bilateral pleural effusions. Cardiomegaly is again noted. Asymmetric interstitial thickening and multifocal airspace opacities within the right lung are present. IMPRESSION: 1. Progression of airspace opacities and interstitial thickening within the right lung. This favors multifocal pneumonia. Although less likely, asymmetric pulmonary edema could appear similar. Continued radiographic follow-up to ensure resolution is recommended. 2. Cardiomegaly. Trace bilateral pleural effusions. ACT 112: Negative or not required by law. Electronically signed by: Deny Parmar M.D. 10/27/2021 9:01 AM Dictated:10/27/21 09 Transcribed: 10/27/21 0900 Hospital Course (1) Fever: Possible related to lower extremity cellulitis, questionable pneumonia. Received Rocephin shot and Bactrim as an outpatient yesterday. Blood cx negative Continue with Zosyn and doxycycline. Clinically improved . Acute kidney injury on chronic kidney disease stage III Baseline creatinine seems to be around 1.5 Will avoid Bactrim (received only 1 dose outpatient) Received IV abx Creatinine improved to 1.7 Continue monitor BMP . Arthritis: Continue his home pain medication and MS Contin 60 mg b.i.d. and prednisone. Robaxin p.r.n. Urinary urgency Benign prostatic hyperplasia: Continue his Myrbetriq, Flomax and VESIcare. Hypertension: BP elevated possible due to hospital setting Continue metoprolol, amlodipine. Continue monitor BP Hyperlipidemia: On fenofibrate. Depression: On citalopram. Anemia due to chronic kidney disease stage III: Hemoglobin is 8.1 on admission with baseline hgb around 8-9. FOBT negative Pt said that he had colonoscopy done about 3 to 4 years ago that was normal Continue monitor DVT px on SCD Disposition Possible discharge in am Total Time Total Time Spent Total Time Spent (In Minutes): 35 minutes Discharge Plan Discharge Items Patient Disposition: Home - Home Health Services Reason For Visit: FEVER, FALL Discharge Diagnosis: Fever Pneumonia Acute kidney injury on chronic kidney disease stage III Arthritis: Urinary urgency Benign prostatic hyperplasia: Hypertension: Hyperlipidemia: Depression: Anemia due to chronic kidney disease stage III: Activity: Resume your previous activity Non-emergency contact: Primary Care Provider Call non-emergency contact if: you have any medication questions and your temperature is above 101 Follow-up/Referrals: David Anderson MD [Physician] - (Date & Time 11/01/2021 12:20 PM Provider David Anderson III, MD Department [facility] ) Diet: Heart Healthy Addtl Attending Provider Instructions: Your chest xray showed pneumonia Follow up with your primary care provider within 1 week Complete the course of the antibiotic with Augmentin and doxycycline Check BMP in 1 week to monitor your kidney function Continue physical and occupation therapy with home health services Fall precaution Pending Studies at Discharge: No Stand-Alone Forms: My [employer], Smoking Cessation Medications and DC Order Prescriptions: New ferrous sulfate 325 mg (65 mg iron) Tablet,Delayed Release (Dr/Ec) 325 mg PO QAM Qty: 30 0RF Continued Metoprolol Tartrate (Lopressor) (Lopressor) 50 MG tablet 50 mg PO BID Qty: 0 Multivitamin tablet 1 tab PO DAILY Qty: 0 Nitroglycerin (Nitrostat) 0.4 MG tablet 0.4 mg UT PRN Qty: 0 Tamsulosin Hcl (Flomax *) 0.4 MG capsule 0.4 mg PO QAM Qty: 0 Docusate Sodium (Colace *) 100 MG capsule 100 mg PO Q2D Qty: 0 Methocarbamol (Robaxin) 750 MG tablet 750 mg PO Q6HWA Qty: 0 Oxycodone Hcl (Oxycontin (Ext Rel) *) 20 MG [id number] 60 mg PO BID Qty: 0 Trazodone Hcl (Desyrel *) 50 MG tablet 100 mg PO HS Qty: 0 nystatin powder 1 applic Transdermal HS Qty: 0 Gabapentin (Neurontin) 400 MG capsule 800 mg PO BID Qty: 0 Aspirin (Aspirin Tab-Chewable *) 81 MG CHEWABLE TAB 1 tab PO QAM Qty: 0 prednisone 5 mg tablet 10 mg PO DAILY fenofibrate micronized 134 mg capsule 134 mg PO DAILY amlodipine 10 mg tablet 10 mg PO DAILY Myrbetriq 50 mg tablet extended release 24 hr 50 mg PO DAILY solifenacin [Vesicare] 10 mg Tablet PO citalopram 20 mg tablet 20 mg PO DAILY Discharge Orders: Discharge Order (Routine); Ordered 10/27/21 Ordered By: Alex Kramer Admission Data Admit Date/Time: 10/25/21 06:40 Attending Provider: Alxe Kramer Admit Provider: Solis Mccauley Primary Care Provider: PCP,NO Other Providers: Carlos Dudley ; Solis Mccauley ; Alex Kramer Other Interventions: Discharge Summary Assessment (RN) Last Done: 10/27/21 13:29
== END 2021-10-27 14:08 | disposition home health service (06) | DRG 194 ==
LOC: ED 02:02 → SUATTDRO 06:40 → 2N 06:40

== ENCOUNTER 2021-11-30 10:13 | Inpatient (IN) ==
--- NOTE | 2021-11-30 10:45 | Communication Note ---
I saw Mr. Schwartz with Dr. Ward. I took a history, performed a physical exam, and was a part of the decision making team. Date of Service: November 30, 2021 Resident Activity Tracking Resident Involvement: Resident Care Provided Care Provided: Adult ED
--- NOTE | 2021-11-30 10:47 | Emergency Department Note ---
Impression & Plan Respiratory failure, Pneumonia, Hypoxia, Acute respiratory acidosis, Acute hyperkalemia, Anemia ED Provider Note NAME: DREW ROGER AGE: 76 SEX: M : 1945 ARRIVES VIA: Ambulance INFORMANT: Patient, EMS, the patient's significant other ED PROVIDER(S): Jese Ward DO CHIEF COMPLAINT: Altered mental status HPI: The patient is a 76-year-old male who presented to the emergency department for evaluation of altered mental status. The patient lives in a personal detention. He was at rehab today and he noticed that his mental status and his breathing was not well. He was noted to have hypotension and hypoxia. The pat ient had no reported fever or cough. He had no reported head injury. His significant other did present to the emergency department with him and gives most of the history. Apparently the patient was admitted to our facility recently but was transferred because of a possible neck injury. It turns out this was an old injury but the patient currently is at [facility]. He has had no hemoptysis. He has had no abdominal pain. He said no lower extremity swelling or weakness. The patient had breathing problems in the past like this and needed to be put on BiPAP. ROS: See above HPI for pertinent positives & negatives. A total of 10 systems reviewed and were otherwise negative. PAST MEDICAL HISTORY: See Below PAST SURGICAL HISTORY: See Below FAMILY HISTORY: See Below SOCIAL HISTORY: See Below HOME MEDICATIONS: See Below ALLERGIES: See Below VITALS: See Below PHYSICAL EXAMINATION: GENERAL: He is awake to loud verbal stimuli. He follows commands poorly. EYES: The conjunctivae are clear. The pupils are round and reactive. EARS, NOSE, MOUTH AND THROAT: The nose is without any evidence of any deformity. Mucous membranes are dry. NECK: The neck is nontender and supple. RESPIRATORY: Shallow and ineffective respirations were noted. Poor air movement was noted. CARDIOVASCULAR: Regular rate and rhythm noted there no murmurs rubs or gallops normal S1 normal S2. GASTROINTESTINAL: The abdomen is soft. Abdomen is nontender. MUSCULOSKELETAL/EXTREMITIES: There is no evidence of gross deformity full range of motion is noted in the hips and shoulders. SKIN: Skin is cool and dry. There is no significant pedal edema. NEUROLOGIC: Patient is awake to loud verbal commands. He is moving all extremities well. MEDICAL DECISION MAKING: Patient is a 76-year-old male who presented to the emergency department for an evaluation of altered mental status and difficulty breathing. The patient was found to be in respiratory distress with hypoxia. He was placed on CPAP immediately. The patient was also treated with bronchodilator therapy. He was treated with IV fluids and IV calcium for hyperkalemia. The patient was reevaluated multiple times and on subsequent reevaluation was more awake. He was somewhat agitated as well. I discussed patient's laboratory and radiographic studies with him and his significant other. [facility] have agreed to evaluate the patient in the emergency department for further management and disposition. Triage Nursing notes reviewed. Prior medical records reviewed Vital Signs: reviewed and remarkable for hypoxia. Differential diagnosis: Reactive airway disease, pneumonia, pneumothorax, COPD, CHF, infections, cardia c ischemia, pulmonary embolism, musculoskeletal, gastrointestinal, as well as other pathologies. ER treatment provided: See below Diagnostics interpreted by me: ECG: EKG was obtained in the emergency department. My interpretation is normal sinus rhythm at 71 bpm. There is no ectopy. There is no acute ST segment abnormalities noted. This was compared to a tracing from November 14, 2021. No changes were noted. Cardiac Monitoring: An order was placed for continuous cardiac monitoring. The monitor shows a rate of 69 bpm with sinus rhythm. Laboratory studies: As stated above and show below. Imaging studies: See below Consultation(s): I discussed this case with Dr. Hall who [facility] ED COURSE: Procedures: none Critical Care: I have personally spent greater than 45 minutes of critical care time in the direct management of this patient. This includes bedside care, interpretation of diagnostic studies, and testing, discussion with consultants, patient, and family members, and other required patient management activities. This 45 minutes is in excess of all separately billable procedures. Past Med/Surg History Medical History Anemia Bilateral cellulitis of lower leg Chronic renal insufficiency Fall Fever Social History Smoking Status: Never smoker Tobacco Type: Cigarettes Hx Alcohol Use: No Hx Substance Use: No Preferred Language: Croatian Communication Ability: Effective Customer Loyalty Representative Required: No Beliefs That Will Affect Care: None marital status: Current Living Situation: Spouse Feels Safe at Home: Yes Assistive Devices: Cane, Walker and Wheelchair Allergies Allergies Allergy/AdvReac Type Severity Reaction Status Date / Time Sulfa (Sulfonamide Allergy Mild rash Verified 12/25/12 11:22 Antibiotics) Home Meds Home Medications Medication Instructions Recorded Confirmed Metoprolol Tartrate (Lopressor) 50 mg PO BID ##0 09/28/09 (Lopressor) Multivitamin 1 tab PO DAILY ##0 09/28/09 Nitroglycerin (Nitrostat) 0.4 mg UT PRN ##0 09/28/09 Tamsulosin Hcl (Flomax *) 0.4 mg PO QAM ##0 09/28/09 Docusate Sodium (Colace *) 100 mg PO Q2D ##0 10/02/09 Methocarbamol (Robaxin) 750 mg PO Q6HWA ##0 10/02/09 Oxycodone Hcl (Oxycontin (Ext Rel) 60 mg PO BID ##0 10/02/09 *) Trazodone Hcl (Desyrel *) 100 mg PO HS ##0 10/02/09 nystatin powder 1 applic transdermal HS ##0 10/02/09 Gabapentin (Neurontin) 800 mg PO BID ##0 10/10/09 Aspirin (Aspirin Tab-Chewable *) 1 tab PO QAM ##0 10/25/09 amlodipine 10 mg tablet 10 mg PO DAILY 10/25/21 10/25/21 citalopram 20 mg tablet 20 mg PO DAILY 10/25/21 10/25/21 fenofibrate micronized 134 mg 134 mg PO DAILY 10/25/21 10/25/21 capsule mirabegron 50 mg tablet,extended 50 mg PO DAILY 10/25/21 10/25/21 release 24 hr (Myrbetriq) prednisone 5 mg tablet 10 mg PO DAILY 10/25/21 10/25/21 solifenacin 10 mg tablet (Vesicare) mg PO 10/25/21 Previous Rx's Medication Instructions Recorded ferrous sulfate 325 mg (65 mg 325 mg PO QAM #30 tabs 10/27/21 iron) tablet,delayed release Results & Data (ED) Vital Signs Vital Signs - 24 hr 11/30/21 10:38 11/30/21 10:38 11/30/21 10:54 Temperature 37.3 C Temperature Source Oral Pulse Rate 72 Pulse Rate [Apical] Respiratory Rate 20 24 Respiratory Effort / Characteristics Non-Labored Spontaneous Accessory Muscle Use Gasping/Agonal Accessory Muscle Use Gasping/Agonal Respiratory Depth Normal Retractive Blood Pressure 98/58 L Blood Pressure [Right Arm] Blood Pressure Mean 71 Blood Pressure Mean [Right Arm] Blood Pressure Position Sitting Pulse Oximetry 95 98 Oxygen Delivery Method Room Air BiPAP Fraction of Inspired Oxygen Sepsis Recent Fever Within 48 Hours Yes Sepsis New/Unexplained Change in Mental Status Yes Sepsis Action Taken by Nursing Physician Notified 11/30/21 10:48 11/30/21 12:28 11/30/21 12:28 Temperature Temperature Source Pulse Rate 71 Pulse Rate [Apical] 69 Respiratory Rate 21 20 Respiratory Effort / Characteristics Spontaneous Respiratory Depth Blood Pressure Blood Pressure [Right Arm] 127/61 Blood Pressure Mean Blood Pressure Mean [Right Arm] 83 Blood Pressure Position Pulse Oximetry 95 97 Oxygen Delivery Method CPAP CPAP Fraction of Inspired Oxygen 50 Sepsis Recent Fever Within 48 Hours Sepsis New/Unexplained Change in Mental Status Sepsis Action Taken by Nursing 11/30/21 12:28 11/30/21 12:28 Temperature Temperature Source Pulse Rate Pulse Rate [Apical] Respiratory Rate Respiratory Effort / Characteristics Non-Labored Respiratory Depth Blood Pressure Blood Pressure [Right Arm] Blood Pressure Mean Blood Pressure Mean [Right Arm] Blood Pressure Position Pulse Oximetry 97 Oxygen Delivery Method CPAP Fraction of Inspired Oxygen Sepsis Recent Fever Within 48 Hours Sepsis New/Unexplained Change in Mental Status Sepsis Action Taken by Custodial Medications Current Medication List: was personally reviewed by me Laboratory Data Attestation: I reviewed the patient's lab results. Result diagrams: 11/30/21 11:11 11/30/21 11:37 Lab Results 11/30/21 11/30/21 11/30/21 Range/Units 11:11 11:11 11:11 WBC 8.43 (4.8-10.8) K/ul RBC 2.51 L (4.63-6.08) M/uL Hgb 7.2 L (14.0-18.0) g/dl Hct 23.7 L (40.1-51.0) % MCV 94.4 (80.0-100.0) fL MCH 28.7 (25.0-34.0) pg MCHC 30.4 L (32.0-36.0) g/dL RDW Std Deviation 56.0 H (36.4-46.3) fL RDW Coeff of Sarah 16.1 H (11.5-14.5) % Plt Count 380 (130-400) K/uL MPV 10.4 (9.4-12.4) fL Immature Gran % (Auto) 0.5 % Neut % (Auto) 77.5 % Lymph % (Auto) 10.1 % Walton % (Auto) 7.2 % Eos % (Auto) 4.2 % Baso % (Auto) 0.5 % Neut # (Auto) 6.54 H (1.4-6.5) K/uL Lymph # (Auto) 0.85 L (1.2-3.4) K/uL Walton # (Auto) 0.61 (0.24-0.82) K/uL Eos # (Auto) 0.35 (0-0.50) K/uL Baso # (Auto) 0.04 (0-0.2) K/uL Immature Gran # (Auto) 0.04 H (0.00-0.02) K/uL Polychromasia 1+ ESR 67 H (0-20) mm/hr PT 12.2 H (9.0-12.0) Seconds INR 1.2 H (0.9-1.1) APTT < 20.0 L (21.0-31.0) Seconds PTT Ratio 0.7 VBG pH (7.36-7.41) VBG pCO2 (38-50) mmHg VBG pO2 mmHg VBG HCO3 mmol/L VBG O2 Saturation % VBG Base Excess mEq/L Sodium (136-145) mmol/L Potassium (3.5-5.1) mmol/L Chloride (98-107) mmol/L Carbon Dioxide (21-32) mmol/L Anion Gap (3-11) BUN (6-23) mg/dl Creatinine (0.6-1.4) mg/dl Est Cr Clr Drug Dosing Est GFR ( Amer) ml/min Est GFR (Non-Af Amer) ml/min BUN/Creatinine Ratio (10-20) Glucose (70-99(Fasting)) mg/dl Lactate (0.4-2.0) mmol/L Calcium (8.5-10.1) mg/dl Magnesium (1.7-2.4) mg/dl Total Bilirubin (0.2-1.0) mg/dl AST (13-39) U/L ALT (7-52) U/L Alkaline Phosphatase (34-104) U/L Ammonia (18-72) umol/L Troponin I High Sens (0-20) pg/ml C-Reactive Protein (0-0.5) mg/dl Total Protein (6.0-8.3) gm/dl Albumin (3.4-5.0) gm/dl Globulin (2.5-4.0) gm/dl Albumin/Globulin Ratio (0.9-2) Procalcitonin (0-0.5) ng/ml SARS-CoV-2 (PCR) (Negative) Influenza Type A (PCR) (Neg) Influenza Type B (PCR) (Neg) RSV (RT-PCR) (Neg) 11/30/21 11/30/21 11/30/21 Range/Units 11:11 11:37 11:37 WBC (4.8-10.8) K/ul RBC (4.63-6.08) M/uL Hgb (14.0-18.0) g/dl Hct (40.1-51.0) % MCV (80.0-100.0) fL MCH (25.0-34.0) pg MCHC (32.0-36.0) g/dL RDW Std Deviation (36.4-46.3) fL RDW Coeff of Sarah (11.5-14.5) % Plt Count (130-400) K/uL MPV (9.4-12.4) fL Immature Gran % (Auto) % Neut % (Auto) % Lymph % (Auto) % Walton % (Auto) % Eos % (Auto) % Baso % (Auto) % Neut # (Auto) (1.4-6.5) K/uL Lymph # (Auto) (1.2-3.4) K/uL Walton # (Auto) (0.24-0.82) K/uL Eos # (Auto) (0-0.50) K/uL Baso # (Auto) (0-0.2) K/uL Immature Gran # (Auto) (0.00-0.02) K/uL Polychromasia ESR (0-20) mm/hr PT (9.0-12.0) Seconds INR (0.9-1.1) APTT (21.0-31.0) Seconds PTT Ratio VBG pH (7.36-7.41) VBG pCO2 (38-50) mmHg VBG pO2 mmHg VBG HCO3 mmol/L VBG O2 Saturation % VBG Base Excess mEq/L Sodium 132 L (136-145) mmol/L Potassium 6.2 H* (3.5-5.1) mmol/L Chloride 99 (98-107) mmol/L Carbon Dioxide 25 (21-32) mmol/L Anion Gap 8 (3-11) BUN 71 H (6-23) mg/dl Creatinine 2.18 H (0.6-1.4) mg/dl Est Cr Clr Drug Dosing Not Reportable Est GFR ( Amer) 32.4 ml/min Est GFR (Non-Af Amer) 28.0 ml/min BUN/Creatinine Ratio 32.6 H (10-20) Glucose 105 H (70-99(Fasting)) mg/dl Lactate 0.7 (0.4-2.0) mmol/L Calcium 8.8 (8.5-10.1) mg/dl Magnesium 2.3 (1.7-2.4) mg/dl Total Bilirubin 0.8 (0.2-1.0) mg/dl AST 54 H (13-39) U/L ALT 50 (7-52) U/L Alkaline Phosphatase 125 H (34-104) U/L Ammonia 24.0 (18-72) umol/L Troponin I High Sens 18.2 D (0-20) pg/ml C-Reactive Protein 14.02 H (0-0.5) mg/dl Total Protein 6.0 (6.0-8.3) gm/dl Albumin 2.8 L (3.4-5.0) gm/dl Globulin 3.2 (2.5-4.0) gm/dl Albumin/Globulin Ratio 0.9 (0.9-2) Procalcitonin (0-0.5) ng/ml SARS-CoV-2 (PCR) (Negative) Influenza Type A (PCR) (Neg) Influenza Type B (PCR) (Neg) RSV (RT-PCR) (Neg) 0911/30/21 11/30/21 Range/Units 11:37 11:37 12:25 WBC (4.8-10.8) K/ul RBC (4.63-6.08) M/uL Hgb (14.0-18.0) g/dl Hct (40.1-51.0) % MCV (80.0-100.0) fL MCH (25.0-34.0) pg MCHC (32.0-36.0) g/dL RDW Std Deviation (36.4-46.3) fL RDW Coeff of Sarah (11.5-14.5) % Plt Count (130-400) K/uL MPV (9.4-12.4) fL Immature Gran % (Auto) % Neut % (Auto) % Lymph % (Auto) % Walton % (Auto) % Eos % (Auto) % Baso % (Auto) % Neut # (Auto) (1.4-6.5) K/uL Lymph # (Auto) (1.2-3.4) K/uL Walton # (Auto) (0.24-0.82) K/uL Eos # (Auto) (0-0.50) K/uL Baso # (Auto) (0-0.2) K/uL Immature Gran # (Auto) (0.00-0.02) K/uL Polychromasia ESR (0-20) mm/hr PT (9.0-12.0) Seconds INR (0.9-1.1) APTT (21.0-31.0) Seconds PTT Ratio VBG pH 7.29 L (7.36-7.41) VBG pCO2 56 H (38-50) mmHg VBG pO2 65 mmHg VBG HCO3 27 mmol/L VBG O2 Saturation 93.6 % VBG Base Excess -0.7 mEq/L Sodium (136-145) mmol/L Potassium (3.5-5.1) mmol/L Chloride (98-107) mmol/L Carbon Dioxide (21-32) mmol/L Anion Gap (3-11) BUN (6-23) mg/dl Creatinine (0.6-1.4) mg/dl Est Cr Clr Drug Dosing Est GFR ( Amer) ml/min Est GFR (Non-Af Amer) ml/min BUN/Creatinine Ratio (10-20) Glucose (70-99(Fasting)) mg/dl Lactate (0.4-2.0) mmol/L Calcium (8.5-10.1) mg/dl Magnesium (1.7-2.4) mg/dl Total Bilirubin (0.2-1.0) mg/dl AST (13-39) U/L ALT (7-52) U/L Alkaline Phosphatase (34-104) U/L Ammonia (18-72) umol/L Troponin I High Sens (0-20) pg/ml C-Reactive Protein (0-0.5) mg/dl Total Protein (6.0-8.3) gm/dl Albumin (3.4-5.0) gm/dl Globulin (2.5-4.0) gm/dl Albumin/Globulin Ratio (0.9-2) Procalcitonin 0.71 H (0-0.5) ng/ml SARS-CoV-2 (PCR) NEGATIVE (Negative) Influenza Type A (PCR) Negative (Neg) Influenza Type B (PCR) Negative (Neg) RSV (RT-PCR) Negative (Neg) Administered Medications Discontinued Medications Albuterol (Albut/Ipratrop 3mg/0.5mg Neb 3 Ml Vial) 12 ml NEB ONE ONE; Protocol Stop: 11/30/21 12:21 Last Admin: 11/30/21 13:17 Dose: 12 ml Documented By: NOREEN Piperacillin Sod/Tazobactam Sod (Zosyn) 4.5 gm in 120 mls @ 240 mls/hr IV NOW ONE Stop: 11/30/21 11:55 Last Admin: 11/30/21 13:18 Dose: 240 mls/hr Documented By: NOREEN Sodium Chloride (Nss 1000ml) 500 mls @ 999 mls/hr IV .Q31M ONE Stop: 11/30/21 12:50 Last Admin: 11/30/21 13:18 Dose: 999 mls/hr Documented By: NOREEN Imaging Data Radiologist's Impression: Chest X-Ray 11/30/21 10:38 XR chest 1V portable CLINICAL HISTORY: SEPSIS TECHNIQUE: Single frontal radiograph of the chest was obtained. Comparison: Comparison is made to chest radiograph 11/14/2021 FINDINGS: Interval removal of endotracheal and enteric tubes. Cardiomegaly is noted. Multifocal airspace opacities, right greater than left, are decreased from prior exam. There is possibly a small left pleural effusion. IMPRESSION: Multifocal airspace opacities, decreased from prior exam. ACT 112: Negative or not required by law. Electronically signed by: Rick Paredes M.D. 11/30/2021 11:[address] 11/30/21 10:38 CT OF THE HEAD WITHOUT CONTRAST CLINICAL HISTORY: Altered mental status. COMPARISON STUDY: Head CT November 14, 2021. CT DOSE: 3584.61 mGy.cm TECHNIQUE: Helical axial images of the head were obtained without IV contrast. Automated exposure control was utilized for the study. A dose lowering technique was utilized adhering to the principles of ALARA. FINDINGS: This study is mildly compromised by motion artifact. However, the v entricular system is stable. No acute intracranial hemorrhage, midline shift or mass effect is present. Moderate atrophy is again noted. Sensitivity for detection of calvarial fractures is diminished but none are identified. A nondisplaced fracture of the right transverse process and posterior arch of C1 is partially imaged. This was present on cervical spine CT of November 14, 2021. IMPRESSION: Exam moderately compromised by motion artifact. However, no acute intracranial findings identified. No change in appearance of the brain. ACT 112: Negative or not required by law. Electronically signed by: Deny Parmar M.D. 11/30/2021 12:56 PM Discharge Plan Visit Data Chief Complaint: Shortness of Breath/Dyspnea Stated Complaint: SOB ED Provider: Jese Ward Discharge Problem: Respiratory failure, Pneumonia, Hypoxia, Acute respiratory acidosis, Acute hyperkalemia, Anemia Patient Disposition: Being Evaluated by Hospitalist Forms Stand Alone Forms: [facility] Prescriptions Prescriptions: No Action Metoprolol Tartrate (Lopressor) (Lopressor) 50 MG tablet 50 mg PO BID Qty: 0 Multivitamin tablet 1 tab PO DAILY Qty: 0 Nitroglycerin (Nitrostat) 0.4 MG tablet 0.4 mg UT PRN Qty: 0 Tamsulosin Hcl (Flomax *) 0.4 MG capsule 0.4 mg PO QAM Qty: 0 Docusate Sodium (Colace *) 100 MG capsule 100 mg PO Q2D Qty: 0 Methocarbamol (Robaxin) 750 MG tablet 750 mg PO Q6HWA Qty: 0 Oxycodone Hcl (Oxycontin (Ext Rel) *) 20 MG [id number] 60 mg PO BID Qty: 0 Trazodone Hcl (Desyrel *) 50 MG tablet 100 mg PO HS Qty: 0 nystatin powder 1 applic Transdermal HS Qty: 0 Gabapentin (Neurontin) 400 MG capsule 800 mg PO BID Qty: 0 Aspirin (Aspirin Tab-Chewable *) 81 MG CHEWABLE TAB 1 tab PO QAM Qty: 0 prednisone 5 mg tablet 10 mg PO DAILY fenofibrate micronized 134 mg capsule 134 mg PO DAILY amlodipine 10 mg tablet 10 mg PO DAILY Myrbetriq 50 mg tablet extended release 24 hr 50 mg PO DAILY solifenacin [Vesicare] 10 mg Tablet PO citalopram 20 mg tablet 20 mg PO DAILY ferrous sulfate 325 mg (65 mg iron) Tablet,Delayed Release (Dr/Ec) 325 mg PO QAM Qty: 30 0RF Referrals Referrals: David Anderson MD [Primary Care Provider] -
--- NOTE | 2021-11-30 11:04 | XRay Report ---
XR chest 1V portable CLINICAL HISTORY: SEPSIS TECHNIQUE: Single frontal radiograph of the chest was obtained. Comparison: Comparison is made to chest radiograph 11/14/2021 FINDINGS: Interval removal of endotracheal and enteric tubes. Cardiomegaly is noted. Multifocal airspace opacit ies, right greater than left, are decreased from prior exam. There is possibly a small left pleural e ffusion. IMPRESSION: Multifocal airspace opacities, decreased from prior exam. ACT 112: Negative or not required by law. Electronically signed by: Rick Paredes M.D. 11/30/2021 11:02 AM
[2021-11-30] MEDS ORDERED: PIPERACILLIN/TAZOBACTAM 4.5 GM/120 ML BAG IV ONE (11:26)
[2021-11-30 11:42] LABS: INR 1.2 (0.9-1.1); Partial Thromboplastin Ratio 0.7; Prothrombin Time 12.2 Seconds (9.0-12.0)
[2021-11-30 11:45] LABS: Hematocrit (blood only) 23.7 % (40.1-51.0); Hemoglobin 7.2 g/dl (14.0-18.0); Mean Corpuscular Hemoglobin 28.7 pg (25.0-34.0); Mean Corpuscular Hgb Conc 30.4 g/dL (32.0-36.0); Mean Corpuscular Volume 94.4 fL (80.0-100.0); Mean Platelet Volume 10.4 fL (9.4-12.4); Partial Thromboplastin Time < 20.0 Seconds (21.0-31.0); Platelet Count 380 K/uL (130-400); RDW Coefficient of Variation 16.1 % (11.5-14.5); Red Blood Count 2.51 M/uL (4.63-6.08); White Blood Count 8.43 K/ul (4.8-10.8)
[2021-11-30 11:52] LABS: Base Excess VBG -0.7 mEq/L; HCO3 VBG 27 mmol/L; Oxygen Saturation VBG 93.6 %; PCO2 VBG 56 mmHg (38-50); PO2 VBG 65 mmHg; pH VBG 7.29 (7.36-7.41)
[2021-11-30 12:10] LABS: Basophils # (auto) 0.04 K/uL (0-0.2); Basophils % (auto) 0.5 %; Eosinophils # (auto) 0.35 K/uL (0-0.50); Eosinophils % (auto) 4.2 %; Immature Granulocytes # (auto) 0.04 K/uL (0.00-0.02); Immature Granulocytes % (auto) 0.5 %; Lymphocytes # (auto) 0.85 K/uL (1.2-3.4); Lymphocytes % (auto) 10.1 %; Monocytes # (auto) 0.61 K/uL (0.24-0.82); Monocytes % (auto) 7.2 %; Neutrophils # (auto) 6.54 K/uL (1.4-6.5); Neutrophils % (auto) 77.5 %; Polychromasia 1+
[2021-11-30 12:14] LABS: Troponin I High Sensitivity 18.2 pg/ml (0-20)
[2021-11-30 12:19] LABS: Alanine Aminotransferase 50 U/L (7-52); Albumin Globulin Ratio 0.9 (0.9-2); Albumin Level 2.8 gm/dl (3.4-5.0); Alkaline Phosphatase 125 U/L (34-104); Anion Gap 8 (3-11); Aspartate Aminotransferase 54 U/L (13-39); BUN Creatinine Ratio 32.6 (10-20); Bilirubin,Total 0.8 mg/dl (0.2-1.0); Blood Urea Nitrogen 71 mg/dl (6-23); C Reactive Protein 14.02 mg/dl (0-0.5); Calcium 8.8 mg/dl (8.5-10.1); Carbon Dioxide 25 mmol/L (21-32); Chloride 99 mmol/L (98-107); Est GFR (African American) 32.4 ml/min; Globulin 3.2 gm/dl (2.5-4.0); Glucose 105 mg/dl (70-99(Fasting)); Magnesium 2.3 mg/dl (1.7-2.4); Potassium 6.2 mmol/L (3.5-5.1); Sodium 132 mmol/L (136-145)
[2021-11-30] MEDS ORDERED: ALBUT/IPRATROP 3MG/0.5MG NEB 3 ML VIAL NEB ONE (12:20)
[2021-11-30] MEDS ORDERED: SODIUM CHLORIDE 0.9% 1000ML 500 ML IV ONE (12:20)
[2021-11-30] MEDS ORDERED: CALCIUM CHLORIDE 10% 1,000 MG in DEXTROSE 5% 50 ML IV STA (12:20)
--- NOTE | 2021-11-30 12:58 | CT Scan Report ---
CT OF THE HEAD WITHOUT CONTRAST CLINICAL HISTORY: Altered mental status. COMPARISON STUDY: Head CT November 14, 2021. CT DOSE: 3584.61 mGy.cm TECHNIQUE: Helical axial images of the head were obtained without IV contrast. Automated exposure con trol was utilized for the study. A dose lowering technique was utilized adhering to the principles o f ALARA. FINDINGS: This study is mildly compromised by motion artifact. However, the ventricular system is sta ble. No acute intracranial hemorrhage, midline shift or mass effect is present. Moderate atrophy is a gain noted. Sensitivity for detection of calvarial fractures is diminished but none are identified. A nondisplaced fracture of the right transverse process and posterior arch of C1 is partially imaged. This was present on cervical spine CT of November 14, 2021. IMPRESSION: Exam moderately compromised by motion artifact. However, no acute intracranial findings identified. N o change in appearance of the brain. ACT 112: Negative or not required by law. Electronically signed by: Deny Parmar M.D. 11/30/2021 12:56 PM
[2021-11-30 13:26] LABS: Influenza A virus by PCR Negative (Neg); Influenza B virus by PCR Negative (Neg); RSV by PCR Negative (Neg); SARS CoV2 RNA(COVID-19) InHosp NEGATIVE (Negative)
[2021-11-30] MEDS ORDERED: LORazepam 2 MG/2 ML SYR IV STA (14:06)
[2021-11-30] MEDS ORDERED: fentaNYL citrate 100 MCG/2 ML VIAL IV STA (14:06)
[2021-11-30] MEDS ORDERED: POLYETHYLENE (MIRALAX) 17 GM PACK PO PRN (14:24)
[2021-11-30] MEDS ORDERED: HALOPERIDOL LACTATE 5 MG/ML 1 ML VIAL IM STA (14:24)
[2021-11-30] MEDS ORDERED: NITROGLYCERIN SL 0.4 MG/TAB TAB SL PRN (14:24)
[2021-11-30] MEDS ORDERED: ACETAMINOPHEN 325 MG TAB PO PRN (14:24)
[2021-11-30] MEDS ORDERED: FUROSEMIDE 40 MG/4 ML VIAL IV ONE (16:00)
--- NOTE | 2021-11-30 16:09 | History & Physical Report ---
Date of Service November 30, 2021 Assessment & Plan (1) Acute respiratory failure with hypoxia: Plan: - has history of CHF and was diuresed 13L at [facility] last month - unclear if this presenation is all CHF related as CT chest with extensive opacities bilaterally with somewhat nodular appearance - hypoxic to 60-70s on RA in ED requiring 15L NRB - wean as tolerated - TTE ordered - IV lasix 40mg for now - Cardiology consult - concern for possible underlying inflammatory or other lung pathology given CT findings - CRP 14, ESR 67, PCT slightly elevated - Pulm consulted for further recs - antibiotics for possible HAP or other chronic pulmonary infection (2) CHF (congestive heart failure): Plan: - unable to obtain [facility] records with recent TTE - TTE ordered - IV lasix - Telemetry/PCU monitoring - Cardiology consulted - resume home meds for now (3) Acute hyperkalemia: Plan: - worsening renal function compared to prior admission - unclear etiology but CHF could be contributing - IV lasix as above - s/p albuterol in ED - ECG without changes for hyperkalemia - repeat BMP ordered (4) Anemia: Plan: - unclear etiology - iron studies sent, B12, folate ordered - no signs of bleeding - monitor for now - transfuse for hgb <7 (5) Acute kidney injury superimposed on CKD: Plan: - in the setting of CHF, acute illness - unclear etiology at this time - will try IV lasix as above given history of CHF - monitor I/O - trend Cr - consider renal consult if no improvement with interventions (6) Altered mental status: Plan: - likely due to acute hypoxic respiratory failure vs other pathology/acute illness - agitated and delirious in the ED requiring chemical sedation as verbal redirection unsuccessful - CTH unremarkable - will monitor for resolution with above interventions (7) Hyponatremia: Plan: - in the setting of CHF, acute illness - will monitor for now - fluid restriction <1.5L for now - trend Na - repeat BMP for K ordered (8) BPH (benign prostatic hyperplasia): Plan: - continue home meds (9) HTN (hypertension): Plan: - BP stable - continue home meds as needed (10) HLD (hyperlipidemia): Plan: - reported statin allergy - continue fenofibrate Plan DVT ppx: heparin SC Code Status: Full Code Dispo: PCU/Telemetry Solis Mccauley MD [facility] Medicine Admission and Anticipated Discharge Date Admission Date: 11/30/2021 History of Present Illness Chief Complaint: shortness of breath Primary Care Provider: David Anderson MD The patient is a 76 year old man with pmh HLD, HTN, obesity, BPH, CDK, chronic pain, anemia who presented to the ED from physical therapy because he appeared short of breath and ill appearing. The history is limited due to patient's mental status and history was taken from the at bedside and ED personnel. The patient reportedly was recently discharged from [facility] after transfer for acute respiratory failure requiring intubation about 1 week prior to admission where he was found to be in acute exacerbation of his heart failure and diuresed up to 13L of fluids with improvement in respiratory status. He was discharged home with home PT and was doing well until today, 11/30/2021 when the physical therapist noticed he was more short of breath. His was at bedside and reports that he was doing well until today. She denies that he has had any fever or chills, n/v/d, abdominal pain, chest pain, cough, shortness of breath, leg swelling, dysuria or other symptoms to the best of her ability. The patient was agitated and delirious during the exam and was somewhat combative and not answering questions appropriately. His reports that he has taken all of his medications as prescribed and was making some progress with physical therapy. Of note, discussed with patient's about code status and she insisted that she thinks he would want to be intubated and CPR performed if needed. Patient is made Full Code. In the ED, vitals were significant for hypoxia <80% (difficult to obtain accurate SpO2 due to patients agitation), HR 70-90s, 120s/40s. Labs were significant for WBC 8.4, hgb 7.2 (baseline ?8), VBG with pH 7.29, PCO2 56, Na 132, K 6.2, Cr 2.2 (baseline around 1.5-2), AST 54, ALT 50, tbili 0.8, ALP 125, CRP 14, PCT 0.71, ESR 67, UA pending. CXR with diffuse infiltrates in bilateral lungs R>L. CTH unremarkable. ECG NSR. He was put on nonrebreather with improvement in sats. Patient was agitated and required IM haldol, IV fentanyl and ativan. He was admitted to medicine for further work up and management. Allergies Allergy/AdvReac Type Severity Reaction Status Date / Time Sulfa (Sulfonamide Allergy Mild rash Verified 12/25/12 11:22 Antibiotics) Home Medications Medication Instructions Recorded Confirmed Type fenofibrate micronized 134 mg 134 mg PO DAILY 10/25/21 11/30/21 History capsule mirabegron 50 mg tablet,extended 50 mg PO DAILY 10/25/21 11/30/21 History release 24 hr (Myrbetriq) solifenacin 10 mg tablet (Vesicare) 10 mg PO DAILY 10/25/21 11/30/21 History acetaminophen 650 mg 650 mg PO Q8H PRN pain 11/30/21 11/30/21 History tablet,extended release amlodipine 5 mg tablet 10 mg PO DAILY 11/30/21 11/30/21 History artificial saliva 3 applic mucous membrane UD 11/30/21 11/30/21 History aspirin 81 mg capsule 81 mg PO DAILY 11/30/21 11/30/21 History calcium carbonate 500 mg calcium 1,000 mg PO DAILY PRN Indigestion 11/30/21 11/30/21 History (1,250 mg) chewable tablet cholecalciferol (vitamin D3) 25 25 mcg PO DAILY 11/30/21 11/30/21 History mcg (1,000 unit) tablet diclofenac sodium 1 % topical gel 1 ea topical BID PRN Pain 11/30/21 11/30/21 History docusate sodium 100 mg capsule 100 mg PO BID 11/30/21 11/30/21 History (Colace) ferrous sulfate 325 mg (65 mg 325 mg PO BID 11/30/21 11/30/21 History iron) tablet,delayed release fluticasone propionate 50 2 spray intranasal DAILY 11/30/21 11/30/21 History mcg/actuation nasal spray,suspension furosemide 40 mg tablet 40 mg PO DAILY 11/30/21 11/30/21 History gabapentin 400 mg capsule 800 mg PO BID 11/30/21 11/30/21 History methocarbamol 750 mg tablet 750 mg PO QID PRN Muscle Spasm 11/30/21 11/30/21 History morphine 60 mg tablet,extended 60 mg PO BID 11/30/21 11/30/21 History release multivitamin 1 tab PO DAILY 11/30/21 11/30/21 History nitroglycerin 0.4 mg sublingual 0.4 mg sublingual UD 11/30/21 11/30/21 History tablet prednisone 5 mg tablet 5 mg PO DAILY 11/30/21 11/30/21 History tamsulosin 0.4 mg capsule 0.4 mg PO DAILY 11/30/21 11/30/21 History trazodone 50 mg tablet 100 mg PO HS 11/30/21 11/30/21 History triamcinolone acetonide 0.5 % 1 applic topical BID 11/30/21 11/30/21 History topical cream Past Med/Surg History Medical History Acute encephalopathy Anemia Bilateral cellulitis of lower leg Chronic renal insufficiency Fall Fever Social History Smoking Status: Never smoker Tobacco Type: Cigarettes Hx Alcohol Use: No Hx Substance Use: No Preferred Language: [place] Communication Ability: Effective Recovery Unit Operator Required: No Beliefs That Will Affect Care: None marital status: Current Living Situation: Spouse Feels Safe at Home: Yes Assistive Devices: Cane, Walker and Wheelchair Review of Systems Review of Systems: Unobtainable due to cognitive status Physical Exam Constitutional: WD/WN, vitals as above + obese, + altered mental status and + combative Eyes: PERRL, conjunctivae normal, anicteric sclerae ENMT: external ear and nose normal, oropharynx normal Neck: trachea midline, no thyromegaly Respiratory: normal respiratory effort; no respiratory distress, no labored breathing, no retractions, does not use accessory muscles, no cough and not tachypneic pulmonary exam limited due to patient being agitated and making noise, making auscultation difficult Cardiovascular: Rate/Rhythm: regular rate and regular rhythm difficult to obtain rest of heart sounds due to patient movement and agitation Gastrointestinal (Abdomen): normal bowel sounds, soft, nontender, no hepatosplenomegaly Musculoskeletal: no cyanosis or clubbing, extremities motor strength 5/5 Skin: multiple ecchymosis on forearms with some wounds that have been dressed, no signs of infection Psychiatric: Orientation: alert, oriented to person and oriented to place; + not oriented to time and + uncooperative Affect: + irritable affect and + angry affect Mood: + irritable mood Results & Data Results & Data ([facility]) Vital Signs (Past 12 Hours) Vital Signs Temp Pulse Pulse Resp BP BP Pulse Ox 11/30/21 15:11 90 12 125/40 L 100 11/30/21 12:28 97 11/30/21 12:28 69 20 127/61 97 11/30/21 12:28 11/30/21 10:48 71 21 95 11/30/21 10:54 24 98 11/30/21 10:38 37.3 C 72 20 98/58 L 95 O2 Del Method O2 Flow Rate FiO2 11/30/21 15:11 Non-rebreather 15 11/30/21 12:28 CPAP 11/30/21 12:28 CPAP 11/30/21 12:28 CPAP 11/30/21 10:48 50 11/30/21 10:54 BiPAP 11/30/21 10:38 Room Air Laboratory Results Short CBC 11/30/21 Range/Units 11:11 WBC 8.43 (4.8-10.8) K/ul Hgb 7.2 L (14.0-18.0) g/dl Hct 23.7 L (40.1-51.0) % Plt Count 380 (130-400) K/uL BMP 11/30/21 11:37 Sodium 132 L Potassium 6.2 H* Chloride 99 Carbon Dioxide 25 BUN 71 H Creatinine 2.18 H Glucose 105 H Calcium 8.8 Liver Function 11/30/21 Range/Units 11:37 Total Bilirubin 0.8 (0.2-1.0) mg/dl AST 54 H (13-39) U/L ALT 50 (7-52) U/L Alkaline Phosphatase 125 H (34-104) U/L Albumin 2.8 L (3.4-5.0) gm/dl Diagnostic Findings Chest X-Ray 11/30/21 10:38 XR chest 1V portable CLINICAL HISTORY: SEPSIS TECHNIQUE: Single frontal radiograph of the chest was obtained. Comparison: Comparison is made to chest radiograph 11/14/2021 FINDINGS: Interval removal of endotracheal and enteric tubes. Cardiomegaly is noted. Multifocal airspace opacities, right greater than left, are decreased from prior exam. There is possibly a small left pleural effusion. IMPRESSION: Multifocal airspace opacities, decreased from prior exam. ACT 112: Negative or not required by law. Electronically signed by: Rick Paredes M.D. 11/30/2021 11:[address] 11/30/21 10:38 CT OF THE HEAD WITHOUT CONTRAST CLINICAL HISTORY: Altered mental status. COMPARISON STUDY: Head CT November 14, 2021. CT DOSE: 3584.61 mGy.cm TECHNIQUE: Helical axial images of the head were obtained without IV contrast. Automated exposure control was utilized for the study. A dose lowering technique was utilized adhering to the principles of ALARA. FINDINGS: This study is mildly compromised by motion artifact. However, the ventricular system is stable. No acute intracranial hemorrhage, midline shift or mass effect is present. Moderate atrophy is again noted. Sensitivity for detection of calvarial fractures is diminished but none are identified. A nondisplaced fracture of the right transverse process and posterior arch of C1 is partially imaged. This was present on cervical spine CT of November 14, 2021. IMPRESSION: Exam moderately compromised by motion artifact. However, no acute intracranial findings identified. No change in appearance of the brain. ACT 112: Negative or not required by law. Electronically signed by: Deny Parmar M.D. 11/30/2021 12:[address] 11/30/21 15:27 CT chest diagnostic wo con CT DOSE: 1028.80 mGy.cm HISTORY: Sepsis. complicated pulmonary findings TECHNIQUE: Multiaxial CT images of the chest were performed without contrast. A dose lowering technique was utilized adhering to the principles of ALARA. COMPARISON: Chest CT 11/14/2021. FINDINGS: The central airways remain patent. No pneumothorax. Extensive multifocal bilateral airspace opacities, right greater than left, have progressed in the interval. Small bilateral pleural effusions are again noted. This is slightly improved on the left. Advanced degenerative changes again noted within the shoulders. No suspicious lytic or blastic osseous lesions. The visualized liver, spleen, and adrenal glands unremarkable. Mild inflammatory change at the proximal duodenum has slightly improved. No pericardial effusion. The heart remains mildly enlarged. Normal caliber thoracic aorta. There is a small hiatus hernia. Stable prominent mediastinal and right hilar lymph nodes. These may be reactive. IMPRESSION: 1. Extensive multifocal bilateral airspace opacities, right greater than left, have slightly progressed in the interval. This could be due to advanced pulmonary edema, multifocal pneumonia, and/or ARDS. An inflammatory or neoplastic process is considered less likely but not entirely excluded. 2. Small bilateral pleural effusions. This is slightly improved on the left. 3. Mild cardiomegaly. 4. Mild inflammatory change at the proximal duodenum has slightly improved. ACT 112: Negative or not required by law. Electronically signed by: Carlito Molina M.D. 11/30/2021 4:16 PM Medications Administered Current Inpatient Medications Acetaminophen (Acetaminophen 325 Mg Tab) 650 mg PO Q4H PRN PRN Reason: Pain or Fever Stop: 12/30/21 14:23 Heparin Sodium (Porcine) (Heparin Sod 5,000 Unit/0.5 Ml Vial) 5,000 units SQ Q8 QUIANA Stop: 12/30/21 21:59 Nitroglycerin (Nitroglycerin Sl 0.4 Mg/Tab Tab) 0.4 mg SL UD PRN PRN Reason: Chest Pain Stop: 12/30/21 14:23 Polyethylene Glycol (Polyethylene (Miralax) 17 Gm Pack) 17 gm PO DAILY PRN PRN Reason: Constipation Stop: 12/30/21 14:23 Code Status & VTE Plan Code Status Full Code VTE Prophylaxis Plan VTE Prophylaxis will be ordered: Yes (1) Anemia Anemia type: unspecified type Qualified Code(s): D64.9 - Anemia, unspecified
--- NOTE | 2021-11-30 16:17 | CT Scan Report ---
CT chest diagnostic wo con CT DOSE: 1028.80 mGy.cm HISTORY: Sepsis. complicated pulmonary findings TECHNIQUE: Multiaxial CT images of the chest were performed without contrast. A dose lowering techni que was utilized adhering to the principles of ALARA. COMPARISON: Chest CT 11/14/2021. FINDINGS: The central airways remain patent. No pneumothorax. Extensive multifocal bilateral airspace opacities, right greater than left, have progressed in the interval. Small bilateral pleural effusio ns are again noted. This is slightly improved on the left. Advanced degenerative changes again noted within the shoulders. No suspicious lytic or blastic osseous lesions. The visualized liver, spleen, a nd adrenal glands unremarkable. Mild inflammatory change at the proximal duodenum has slightly improv ed. No pericardial effusion. The heart remains mildly enlarged. Normal caliber thoracic aorta. There is a small hiatus hernia. Stable prominent mediastinal and right hilar lymph nodes. These may be reac tive. IMPRESSION: 1. Extensive multifocal bilateral airspace opacities, right greater than left, have slightly progress ed in the interval. This could be due to advanced pulmonary edema, multifocal pneumonia, and/or ARDS. An inflammatory or neoplastic process is considered less likely but not entirely excluded. 2. Small bilateral pleural effusions. This is slightly improved on the left. 3. Mild cardiomegaly. 4. Mild inflammatory change at the proximal duodenum has slightly improved. ACT 112: Negative or not required by law. Electronically signed by: Carlito Molina M.D. 11/30/2021 4:16 PM
[2021-11-30 16:43] LABS: Appearance Urine Clear (Clear); Bacteria Urine Automated Negative (Negative); Bilirubin Urine Negative (Negative); Blood Urine Negative (Negative); Color Urine Yellow; Epithelial Cell Urine Auto >30 /lpf (0-5); Glucose Urine UA Negative (Negative); Ketones Urine Negative (Negative); Leukocyte Esterase Urine Trace (Negative); Nitrite Urine Negative (Negative); Protein Urine Negative (Negative); RBC Urine Automated 0-4 /hpf (0-4); Specific Gravity Urine 1.013 (1.000-1.030); Urobilinogen Urine Negative (Negative)
[2021-11-30 16:46] LABS: Amphetamines+Metham, Urine Neg (Neg); Barbiturates, Urine Neg (Neg); Benzodiazepine, Urine Neg (Neg); Cocaine, Urine Neg (Neg); MDMA (Ecstacy), Urine Neg (Neg); Methadone, Urine Neg (Neg); Opiate, Urine Pos (Neg); Phencyclidine, Urine Neg (Neg)
--- NOTE | 2021-11-30 16:53 | Pulmonary Consultation ---
Date of Consultation November 30, 2021 Assessment & Plan (1) Acute respiratory failure with hypoxia: Likely multifactorial related to acute on chronic diastolic heart failure and a possible inflammatory pulmonary disease. Will defer work-up including ANCA and other rheumatological serologies depending on what type of work-up was completed at [facility]. Continue supportive care at this time including weaning supplemental oxygen as able and maintaining the patient euvolemic. He appears to have responded well to Lasix and his oxygen requirements have improved. Please obtain the records from [facility] related to his recent hospitalization. Agree with empiric antibiotics. There may be a possible rheumatological disorder or pulmonary renal syndrome as noted above given his STEFFI (less likely given lack of RBC and protein on urinalysis) and nodular infiltrates noted on CT chest. We will consider bronchoscopy once the patient stabilizes or if he requires intubation to rule out chronic infectious etiology, certain idiopathic interstitial pneumonias and diffuse alveolar hemorrhage in the context of anemia. It should be noted, that I did perform a bedside ultrasound of the patient's heart. The left ventricular function appeared relatively preserved. No obvious valvular abnormality seen. IVC difficult to assess. No obvious pericardial effusion was seen. (2) Pneumonia: Procalcitonin is mildly elevated, but difficult to interpret in the context of acute renal failure. Agree with empiric antibiotics at this time. He was given Zosyn in the ER. I added doxycycline and changed Zosyn to cefepime given his renal failure. Low threshold to add MRSA coverage. MRSA screen pending. Laterality: right Lung location: unspecified part of lung Pneumonia type: due to unspecified organism Qualified Code(s): J18.9 - Pneumonia, unspecified organism (3) Acute kidney injury superimposed on CKD: Possible pulmonary renal syndrome or cardiorenal syndrome as noted previously. Although, no signs of protein or blood in the urinalysis which would go against nephritic syndrome. Recommend nephrology consultation. Monitor urine output closely. Patient also with hyperkalemia. Defer treatment to hospitalist service. (4) Acute encephalopathy: ABG ordered to rule out hypercapnic respiratory failure. Patient came in combative likely related to hypoxic encephalopathy. He is now in a hypoactive delirium likely due to oversedation from fentanyl, Ativan and Haldol. Plan Thank you for the consult. We will continue to follow with you. History of Present Illness Reason for Consultation: Acute hypoxia and abnormal CT chest History of Present Illness I am unable to get history from the patient as he is currently obtunded. He received 5 mg of IV Haldol, half a milligram Ativan and 100 mcg of fentanyl due to severe agitation. History is obtained from chart review, discussion with hospitalist and bedside nurse. The patient was recently in the emergency department November 14 and also discharged from the hospital October 27. He was reportedly at [facility] approximately 1 week ago due to concerns for cervical spine fracture and possible gastrointestinal bleed. I do not have the records of what transpired at [facility]. Per the nurse, the patient was brought to the ER via EMS from a nursing facility. He was apparently found profoundly hypoxemic in the ER and was very agitated requiring sedation as noted above. His labs are significant for acute kidney injury, anemia, elevated ESR. EKG with no evidence of ischemia. Normal sinus rhythm. Cepheid test was negative for COVID, RSV and influenza. Notably, patient was also requiring a nonrebreather in the ER and received 40 mg of IV Lasix. His respiratory status improved and he is currently on 8 L via oxime mask saturating in the high 90s. A CT chest was obtained which revealed extensive multifocal bilateral nodular airspace opacities slightly progressive compared to the CT from 11/14/2021. CT head negative for acute infarct or ischemia. Allergies Allergy/AdvReac Type Severity Reaction Status Date / Time Sulfa (Sulfonamide Allergy Mild rash Verified 12/25/12 11:22 Antibiotics) Home Medications Medication Instructions Recorded Confirmed Type fenofibrate micronized 134 mg 134 mg PO DAILY 10/25/21 11/30/21 History capsule mirabegron 50 mg tablet,extended 50 mg PO DAILY 10/25/21 11/30/21 History release 24 hr (Myrbetriq) solifenacin 10 mg tablet (Vesicare) 10 mg PO DAILY 10/25/21 11/30/21 History acetaminophen 650 mg 650 mg PO Q8H PRN pain 11/30/21 11/30/21 History tablet,extended release amlodipine 5 mg tablet 10 mg PO DAILY 11/30/21 11/30/21 History artificial saliva 3 applic mucous membrane UD 11/30/21 11/30/21 History aspirin 81 mg capsule 81 mg PO DAILY 11/30/21 11/30/21 History calcium carbonate 500 mg calcium 1,000 mg PO DAILY PRN Indigestion 11/30/21 0 11/30/21 History (1,250 mg) chewable tablet cholecalciferol (vitamin D3) 25 25 mcg PO DAILY 11/30/21 11/30/21 History mcg (1,000 unit) tablet diclofenac sodium 1 % topical gel 1 ea topical BID PRN Pain 11/30/21 11/30/21 History docusate sodium 100 mg capsule 100 mg PO BID 11/30/21 11/30/21 History (Colace) ferrous sulfate 325 mg (65 mg 325 mg PO BID 11/30/21 11/30/21 History iron) tablet,delayed release fluticasone propionate 50 2 spray intranasal DAILY 11/30/21 11/30/21 History mcg/actuation nasal spray,suspension furosemide 40 mg tablet 40 mg PO DAILY 11/30/21 11/30/21 History gabapentin 400 mg capsule 800 mg PO BID 11/30/21 11/30/21 History methocarbamol 750 mg tablet 750 mg PO QID PRN Muscle Spasm 11/30/21 11/30/21 History morphine 60 mg tablet,extended 60 mg PO BID 11/30/21 11/30/21 History release multivitamin 1 tab PO DAILY 11/30/21 11/30/21 History nitroglycerin 0.4 mg sublingual 0.4 mg sublingual UD 11/30/21 11/30/21 History tablet prednisone 5 mg tablet 5 mg PO DAILY 11/30/21 11/30/21 History tamsulosin 0.4 mg capsule 0.4 mg PO DAILY 11/30/21 11/30/21 History trazodone 50 mg tablet 100 mg PO HS 11/30/21 11/30/21 History triamcinolone acetonide 0.5 % 1 applic topical BID 11/30/21 11/30/21 History topical cream Patient History Medical History (Updated 11/30/21 @ 17:09 by Tyrell Peng MD) Acute encephalopathy Anemia Bilateral cellulitis of lower leg Chronic renal insufficiency Fall Fever Social History Smoking Status: Never smoker Tobacco Type: Cigarettes Hx Alcohol Use: No Hx Substance Use: No Preferred Language: [place] Communication Ability: Effective Extension Forester Required: No Beliefs That Will Affect Care: None marital status: Current Living Situation: Spouse Feels Safe at Home: Yes Assistive Devices: Cane, Walker and Wheelchair Review of Systems Review of Systems: All systems reviewed & are unremarkable except as noted in HPI & below Physical Exam Physical Exam: Constitutional: Elderly appearing male who is obese in moderate distress. Eyes: Pupils are equal round and reactive to light. Conjunctivae are normal. Anicteric sclera. Ears nose, mouth and throat: Mallampati class 2. Normal posterior oropharynx. Uvula is midline. Neck: Trachea is midline. Visual inspection is normal. Respiratory: Coarse breath sounds bilaterally. Mild tachypnea. Cardiovascular: Regular rate and rhythm. No murmurs. No edema. Gastrointestinal: Normal bowel sounds, soft, nontender and nondistended. No hepatosplenomegaly noted. Musculoskeletal: No cyanosis. Patient is able to move all extremities. Strength is 5 out of 5 in the upper and lower extremities. Skin: Ecchymosis noted in the right upper extremity. Neurologic: Patient is heavily sedated and grunts to painful stimuli and sternal rub. Psychiatric: Unable to assess. Results & Data Results & Data ([facility]) Vital Signs (Past 12 Hours) Vital Signs Temp Pulse Pulse Resp BP BP Pulse Ox 11/30/21 15:11 90 12 125/40 L 100 11/30/21 12:28 97 11/30/21 12:28 69 20 127/61 97 11/30/21 12:28 11/30/21 10:48 71 21 95 11/30/21 10:54 24 98 11/30/21 10:38 37.3 C 72 20 98/58 L 95 O2 Del Method O2 Flow Rate FiO2 11/30/21 15:11 Non-rebreather 15 11/30/21 12:28 CPAP 11/30/21 12:28 CPAP 11/30/21 12:28 CPAP 11/30/21 10:48 50 11/30/21 10:54 BiPAP 11/30/21 10:38 Room Air PG Care Time/CCT Total # of Minutes Spent Total Time Spent with Patient: Total time spent is greater than 50% in coordination of care (as documented) at patient's floor/unit and/or counseling patient: Coding Level of Care Code 62134 Initial Inpt Care Lvl 3 Diagnoses Acute respiratory failure with hypoxia J96.01 Pneumonia J18.9 Laterality: right Lung location: unspecified part of lung Pneumonia type: due to unspecified organism Acute kidney injury superimposed on CKD N17.9; N18.9 Acute encephalopathy G93.40
[2021-11-30 17:13] LABS: Anion Gap 6 (3-11); BUN Creatinine Ratio 32.6 (10-20); Blood Urea Nitrogen 74 mg/dl (6-23); Calcium 8.7 mg/dl (8.5-10.1); Carbon Dioxide 26 mmol/L (21-32); Chloride 100 mmol/L (98-107); Est GFR (African American) 30.9 ml/min; Est GFR (Non-African American) 26.6 ml/min; Glucose 128 mg/dl (70-99(Fasting)); Potassium 5.4 mmol/L (3.5-5.1); Sodium 132 mmol/L (136-145)
--- NOTE | 2021-11-30 17:34 | Cardiology Consultation ---
Date of Consultation November 30, 2021 Assessment & Plan (1) Acute respiratory failure with hypoxia: (2) Acute encephalopathy: (3) CHF (congestive heart failure): -Recent history of respiratory insufficiency that responded to diuretic therapy, with LVEF estimated to be 45%, also noted RV dysfunction during that hospital stay. -Presenting potassium was 6.2 today, down to 5.4, creatinine 2.27 on most recent repeat chemistry panel at 1627. He has received a dose of 40 mg IV furosemide. I would continue this for tomorrow, pending reassessment of his kidney function. Agree with plan to consult pulmonary medicine and for treatment of pneumonia, as alternative diagnosis for his chest x-ray/CT findings besides congestive heart failure certainly include multifocal pneumonia and ARDS. History of Present Illness History of Present Illness David Schwartz is a 76-year-old male seen in cardiology consultation per the request of Dr. Mccauley for the evaluation of respiratory insufficiency, CHF. History obtained through review of his chart. He apparently presented with altered mental status from a personal skilled nursing. He had been agitated and recently received treatment with Haldol and 0.5 mg of IV lorazepam and now he is sleeping comfortably, maintaining pulse oximetry in the mid 90s. The patient does follow with cardiology on a chronic basis. Per review of outpatient chart, he has a history of hypertension and stage 3b chronic kidney disease. He has a history of chronic low back pain and has been on narcotic analgesics as well as NSAIDs in the past. With recent treatment including long- acting morphine sulfate and prednisone. Recent history dates back to 10/25/2021 when he presented with a fever, acute kidney injury, and fall. Patient presented again to the emergency department on 11/14/2021 with respiratory failure, fall, and underwent emergent endotracheal intubation. He was transferred to [facility] where he was cared for by the critical care medicine service receiving treatment including diuretic therapy and was extubated on 11/16/2021. He was found to have a C1 fracture which was evaluated and cleared by neurosurgery. Ejection fraction during hospital stay was 45% on echocardiogram. He was discharged on a dose of furosemide 40 mg daily. Allergies Allergy/AdvReac Type Severity Reaction Status Date / Time Sulfa (Sulfonamide Allergy Mild rash Verified 12/25/12 11:22 Antibiotics) Home Medications Medication Instructions Recorded Confirmed Type fenofibrate micronized 134 mg 134 mg PO DAILY 10/25/21 11/30/21 History capsule mirabegron 50 mg tablet,extended 50 mg PO DAILY 10/25/21 11/30/21 History release 24 hr (Myrbetriq) solifenacin 10 mg tablet (Vesicare) 10 mg PO DAILY 10/25/21 11/30/21 History acetaminophen 650 mg 650 mg PO Q8H PRN pain 11/30/21 11/30/21 History tablet,extended release amlodipine 5 mg tablet 10 mg PO DAILY 11/30/21 11/30/21 History artificial saliva 3 applic mucous membrane UD 11/30/21 11/30/21 History aspirin 81 mg capsule 81 mg PO DAILY 11/30/21 11/30/21 History calcium carbonate 500 mg calcium 1,000 mg PO DAILY PRN Indigestion 11/30/21 11/30/21 History (1,250 mg) chewable tablet cholecalciferol (vitamin D3) 25 25 mcg PO DAILY 11/30/21 11/30/21 History mcg (1,000 unit) tablet diclofenac sodium 1 % topical gel 1 ea topical BID PRN Pain 11/30/21 11/30/21 History docusate sodium 100 mg capsule 100 mg PO BID 11/30/21 11/30/21 History (Colace) ferrous sulfate 325 mg (65 mg 325 mg PO BID 11/30/21 11/30/21 History iron) tablet,delayed release fluticasone propionate 50 2 spray intranasal DAILY 11/30/21 11/30/21 History mcg/actuation nasal spray,suspension furosemide 40 mg tablet 40 mg PO DAILY 11/30/21 11/30/21 History gabapentin 400 mg capsule 800 mg PO BID 11/30/21 11/30/21 History methocarbamol 750 mg tablet 750 mg PO QID PRN Muscle Spasm 11/30/21 11/30/21 History morphine 60 mg tablet,extended 60 mg PO BID 11/30/21 11/30/21 History release multivitamin 1 tab PO DAILY 11/30/21 11/30/21 History nitroglycerin 0.4 mg sublingual 0.4 mg sublingual UD 11/30/21 11/30/21 History tablet prednisone 5 mg tablet 5 mg PO DAILY 11/30/21 11/30/21 History tamsulosin 0.4 mg capsule 0.4 mg PO DAILY 11/30/21 11/30/21 History trazodone 50 mg tablet 100 mg PO HS 11/30/21 11/30/21 History triamcinolone acetonide 0.5 % 1 applic topical BID 11/30/21 11/30/21 History topical cream Patient History Medical History Acute encephalopathy Anemia Bilateral cellulitis of lower leg Chronic renal insufficiency Fall Fever Social History Smoking Status: Never smoker Tobacco Type: Cigarettes Hx Alcohol Use: No Hx Substance Use: No Preferred Language: Nepali Communication Ability: Effective 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 Beliefs That Will Affect Care: None marital status: Current Living Situation: Spouse Feels Safe at Home: Yes Assistive Devices: Cane, Walker and Wheelchair Review of Systems Review of Systems: Unobtainable due to reduced consciousness Physical Exam Constitutional: + obese Respiratory: no respiratory distress and does not use accessory muscles Auscultation: + diminished lung sounds (Mildly reduced breath sounds the bases); no crackles, no rales and no rhonchi Cardiovascular: RRR, no murmur, no edema Heart Sounds: no murmur Vessels: no JVD Gastrointestinal (Abdomen): normal bowel sounds, soft, nontender, no hepatosplenomegaly Neurologic: awake Somnolent having recently received sedation medication Results & Data ([facility]) Vital Signs (Past 12 Hours) Vital Signs Temp Pulse Pulse Resp BP BP Pulse Ox 11/30/21 15:11 90 12 125/40 L 100 11/30/21 12:28 97 11/30/21 12:28 69 20 127/61 97 11/30/21 12:28 11/30/21 10:48 71 21 95 11/30/21 10:54 24 98 11/30/21 10:38 37.3 C 72 20 98/58 L 95 O2 Del Method O2 Flow Rate FiO2 11/30/21 15:11 Non-rebreather 15 11/30/21 12:28 CPAP 11/30/21 12:28 CPAP 11/30/21 12:28 CPAP 11/30/21 10:48 50 11/30/21 10:54 BiPAP 11/30/21 10:38 Room Air Diagnostic Findings EKG performed 11/30/2021, interpreted independently: Sinus rhythm at 71 bpm with sinus arrhythmia, no significant repolarization changes. In comparison to the 11/14/2021 EKG, somewhat of a poor tracing, although atrial fibrillation cannot be excluded, the R-R interval at that time was regular and repeat tracing 11/14/2021 within the [facility] system revealed normal sinus rhythm at 60 bpm. Summary of echocardiogram report 11/15/2021, [facility]: The qualitative LV ejection fraction is 45-49% (mildly reduced). There is diffuse hypokinesis. The right ventricular cavity size is qualitatively normal. Image resolution does not allow dimension measurements. The right ventricular systolic function is qualitatively normal. Review of today's chest x-ray, mostly right-sided airspace opacities with appearance somewhat atypical for congestive heart failure Summary of noncontrast CT of the chest 11/30/2021: 1. Extensive multifocal bilateral airspace opacities, right greater than left, have slightly progressed in the interval. This could be due to advanced pulmonary edema, multifocal pneumonia, and/or ARDS. An inflammatory or neoplastic process is considered less likely but not entirely excluded. 2. Small bilateral pleural effusions. This is slightly improved on the left. 3. Mild cardiomegaly. 4. Mild inflammatory change at the proximal duodenum has slightly improved.
[2021-11-30 17:37] LABS: Base Excess ABG 0.3 mEq/L (-9-1.8); HCO3 ABG 27 mmol/L (19-24); Oxygen Saturation ABG 97.2 % (90-95); PCO2 ABG 53 mmHg (35-46); PO2 ABG 79 mmHg (80-95); pH ABG 7.32 (7.35-7.45)
[2021-11-30 17:39] LABS: Allen Test POS (Pos)
[2021-11-30] MEDS ORDERED: ARTIFICIAL SALIVA MUCOUS MEMBRANE SCH (17:53)
[2021-11-30] MEDS ORDERED: Patient's HEIGHT &/or WEIGHT Needed SCH (18:00)
[2021-11-30] MEDS ORDERED: CALCIUM CARBONATE 500 MG CHEWABLE TAB PO PRN (18:16)
[2021-11-30] MEDS: DOXYCYCLINE HYCLATE 100 MG in DEXTROSE 5% 100 ML IV SCH (18:30)
[2021-11-30] MEDS: CEFEPIME 2,000 MG in SYRINGE 0 ML IV SCH (20:10)
[2021-11-30] MEDS: GABAPENTIN 400 MG CAP PO SCH (20:11)
[2021-11-30] MEDS: traZODone HCL 100 MG TAB PO SCH (20:11)
[2021-11-30] MEDS: FERROUS SULFATE 325 MG TAB PO SCH (20:11)
[2021-11-30] MEDS: HEPARIN SOD 5,000 UNIT/0.5 ML VIAL SQ SCH (22:55)
[2021-11-30] MEDS: *FENOFIBRATE*ORDER AWAITING ACTION SCH (23:26)
[2021-12-01] MEDS ORDERED: HALOPERIDOL LACTATE 5 MG/ML 1 ML VIAL IM STA (00:37)
[2021-12-01 01:38] LABS: Adenovirus PCR Not Detected (NotDetected); Bordetella parapertussis PCR Not Detected (NotDetected); Bordetella pertussis PCR Not Detected (NotDetected); Chlamydia pneumoniae PCR Not Detected (NotDetected); Coronavirus 229E PCR Not Detected (NotDetected); Coronavirus CoV-2 (COVID19)PCR Not Detected (NotDetected); Coronavirus HKU1 PCR Not Detected (NotDetected); Coronavirus NL63 PCR Not Detected (NotDetected); Coronavirus OC43PCR Not Detected (NotDetected); Human Metapneumovirus PCR Not Detected (NotDetected); Influenza A PCR Not Detected (NotDetected); Influenza B PCR Not Detected (NotDetected); Mycoplasma pneumoniae PCR Not Detected (NotDetected); Parainfluenza Virus 1 PCR Not Detected (NotDetected); Parainfluenza Virus 2 PCR Not Detected (NotDetected); Parainfluenza Virus 3 PCR Not Detected (NotDetected); Parainfluenza Virus 4 PCR Not Detected (NotDetected); Respiratory Syncytial VirusPCR Not Detected (NotDetected); Rhinovirus/Enterovirus PCR Not Detected (NotDetected)
[2021-12-01] MEDS: HEPARIN SOD 5,000 UNIT/0.5 ML VIAL SQ SCH ×3 (05:38→21:00)
[2021-12-01] MEDS: DOXYCYCLINE HYCLATE 100 MG in DEXTROSE 5% 100 ML IV SCH ×2 (05:38→17:31)
--- NOTE | 2021-12-01 05:52 | Electrocardiogram Report ---
Test Reason : Blood Pressure : / mmHG Vent. Rate : 071 BPM Atrial Rate : 071 BPM P-R Int : 200 ms QRS Dur : 100 ms QT Int : 394 ms P-R-T Axes : 053 042 015 degrees QTc Int : 428 ms Normal sinus rhythm with sinus arrhythmia Normal ECG When compared with ECG of 14-NOV-2021 11:05, Sinus rhythm has replaced Atrial fibrillation Confirmed by Ghulam Doss ([id number]) on 12/01/2021 5:52:17 AM Referred By: REFERRED SELF Confirmed By:Ghulam Doss
[2021-12-01 07:27] LABS: Folate (Folic Acid) > 22.30 ng/ml (>5.38)
[2021-12-01 07:28] LABS: Vitamin B12 1476 pg/ml (180-914)
[2021-12-01] MEDS: CEFEPIME 2,000 MG in SYRINGE 0 ML IV SCH ×2 (07:54→18:18)
--- NOTE | 2021-12-01 09:23 | Hospitalist Progress Note ---
Date of Service December 01, 2021 Assessment & Plan (1) Acute respiratory failure with hypoxia: Plan: - has history of CHF and was diuresed 13L at [facility] last month - unclear if this presenation is all CHF related as CT chest with extensive opacities bilaterally with somewhat nodular appearance - hypoxic to 60-70s on RA in ED requiring 15L NRB - wean as tolerated - TTE - G1DD, hyperdynamic, EF 65-70% - IV lasix - Cardiology consult - concern for possible underlying inflammatory or other lung pathology given CT findings - CRP 14, ESR 67, PCT slightly elevated - Pulm consulted for further recs - antibiotics for possible HAP or other chronic pulmonary infection (2) CHF (congestive heart failure): Plan: - unable to obtain [facility] records with recent TTE - TTE as above - IV lasix - Telemetry/PCU monitoring - Cardiology consulted - resume home meds for now (3) Acute hyperkalemia: Plan: - worsening renal function compared to prior admission - unclear etiology but CHF could be contributing - IV lasix as above - s/p albuterol in ED - ECG without changes for hyperkalemia - repeat BMP with improvement, awaiting morning labs (4) Anemia: Plan: - unclear etiology - iron studies sent - b12, folate wnl - no signs of bleeding - monitor for now - transfuse for hgb <7 (5) Acute kidney injury superimposed on CKD: Plan: - in the setting of CHF, acute illness - unclear etiology at this time - will try IV lasix as above given history of CHF - monitor I/O - trend Cr - consider renal consult if no improvement with interventions (6) Altered mental status: Plan: - likely due to acute hypoxic respiratory failure vs other pathology/acute illness - patient is being treated for possible metabolic encephalopathy from infection vs hypoxic encephalopathy given hypoxic on presentation - agitated and delirious in the ED requiring chemical sedation as verbal redirection unsuccessful - CTH unremarkable - will monitor for resolution with above interventions - received haldol again overnight for agitation (7) Hyponatremia: Plan: - in the setting of CHF, acute illness - will monitor for now - fluid restriction <1.5L for now - trend Na - repeat BMP with stable Na (8) BPH (benign prostatic hyperplasia): Plan: - continue home meds (9) HTN (hypertension): Plan: - BP stable - continue home meds as needed (10) HLD (hyperlipidemia): Plan: - reported statin allergy - continue fenofibrate Plan DVT ppx: heparin SC Code Status: Full Code Dispo: PCU/Telemetry Solis Mccauley MD [facility] Medicine Admission and Anticipated Discharge Date Admission Date: November 30, 2021 Subjective The patient is a 76 year old man with pmh HLD, HTN, obesity, BPH, CDK, chronic pain, anemia who presented to the ED from physical therapy because he appeared short of breath and ill appearing. Found to have multifocal airspace opacities on CXR and CT with nodular appearance, increased slightly from prior imaging. Receiving IV diuresis and empiric antibiotics with Cardiology and Pulmonology following. TTE demonstrated G1DD but LVEF wnl. Inflammatory work markers elevated. The patient remains somnolent today but will answer questions if persistent. Received haldol again overnight for agitation. Patient did not participate in other parts of the exam. Review of Systems Review of Systems: Unobtainable due to reduced consciousness Physical Exam Constitutional: WD/WN, vitals as above + obese somnolent but wakes to stimulation - received Haldol overnight Eyes: PERRL, conjunctivae normal, anicteric sclerae ENMT: external ear and nose normal, oropharynx normal Neck: trachea midline, no thyromegaly Respiratory: normal respiratory effort; no respiratory distress, no labored breathing, no retractions, does not use accessory muscles, no cough and not tachypneic Auscultation: lungs clear to auscultation bilaterally; no crackles, no rhonchi and no wheezes Cardiovascular: Rate/Rhythm: regular rate and regular rhythm Heart Sounds: normal S1 and normal S2; no murmur Gastrointestinal (Abdomen): normal bowel sounds, soft, nontender, no hepatosplenomegaly Musculoskeletal: no cyanosis or clubbing, extremities motor strength 5/5 Skin: Trauma: + evidence of skin trauma and + abrasion (left and right forearms) Psychiatric: Orientation: oriented to person and oriented to place; + not alert (rousable), + not oriented to time and + uncooperative Affect: + irritable affect and + angry affect Mood: + irritable mood Thought Process: + perseveration Results & Data Results & Data ([facility]) Vital Signs (Past 12 Hours) Vital Signs Temp Pulse Pulse Resp BP Pulse Ox O2 Del Method 12/01/21 07:37 36.6 C 88 18 131/63 98 BiPAP 12/01/21 02:51 95 H 25 H 96 12/01/21 03:14 36.9 C 94 H 20 137/51 L 90 Oxymask 11/30/21 22:12 81 11/30/21 22:47 36.4 C L 82 18 146/68 H 92 Oxymask 11/30/21 22:30 24 94 Oxymask 11/30/21 22:00 24 94 Oxymask 11/30/21 21:30 24 94 Oxymask O2 Flow Rate FiO2 12/01/21 07:37 12/01/21 02:51 50 12/01/21 03:14 7 11/30/21 22:12 11/30/21 22:47 11/30/21 22:30 4 11/30/21 22:00 4 11/30/21 21:30 4 Laboratory Results Short CBC 11/30/21 Range/Units 11:11 WBC 8.43 (4.8-10.8) K/ul Hgb 7.2 L (14.0-18.0) g/dl Hct 23.7 L (40.1-51.0) % Plt Count 380 (130-400) K/uL BMP 11/30/21 11/30/21 11:37 16:27 Sodium 132 L 132 L Potassium 6.2 H* 5.4 H Chloride 99 100 Carbon Dioxide 25 26 BUN 71 H 74 H Creatinine 2.18 H 2.27 H Glucose 105 H 128 H Calcium 8.8 8.7 Liver Function 11/30/21 Range/Units 11:37 Total Bilirubin 0.8 (0.2-1.0) mg/dl AST 54 H (13-39) U/L ALT 50 (7-52) U/L Alkaline Phosphatase 125 H (34-104) U/L Albumin 2.8 L (3.4-5.0) gm/dl Urine 11/30/21 Range/Units 15:03 Urine Color Yellow Urine Appearance Clear (Clear) Urine pH 5.0 (4.5-7.5) Ur Specific [place] 1.013 (1.000-1.030) Urine Protein Negative (Negative) Urine Glucose (UA) Negative (Negative) Diagnostic Findings reviewed Medications Administered Current Inpatient Medications Acetaminophen (Acetaminophen 325 Mg Tab) 650 mg PO Q8H PRN PRN Reason: pain Stop: 12/30/21 18:16 Amlodipine Besylate (Amlodipine Besylate 5 Mg Tab) 10 mg PO DAILY [facility] Stop: 12/31/21 08:59 Last Admin: 12/01/21 10:11 Dose: 10 mg Aspirin (Aspirin 81 Mg Ectab) 81 mg PO DAILY [facility] Stop: 12/31/21 08:59 Last Admin: 12/01/21 10:11 Dose: 81 mg Calcium Carbonate (Calcium Carbonate 500 Mg Chewable Tab) 1,000 mg PO DAILY PRN PRN Reason: Indigestion Stop: 12/30/21 18:15 Ferrous Sulfate (Ferrous Sulfate 325 Mg Tab) 325 mg PO BID [facility] Stop: 12/30/21 20:59 Last Admin: 12/01/21 10:11 Dose: 325 mg Gabapentin (Gabapentin 400 Mg Cap) 400 mg PO BID [facility]; Protocol Stop: 12/30/21 20:59 Last Admin: 12/01/21 10:11 Dose: 400 mg Heparin Sodium (Porcine) (Heparin Sod 5,000 Unit/0.5 Ml Vial) 5,000 units SQ Q8 [facility] Stop: 12/30/21 21:59 Last Admin: 12/01/21 05:38 Dose: 5,000 units Cefepime HCl 2,000 mg/ Syringe 20 mls @ 5 mls/min IV Q12H [facility]; Protocol Stop: 12/07/21 18:59 Last Admin: 12/01/21 07:54 Dose: 5 mls/min Doxycycline Hyclate 100 mg/ (Dextrose) 110 mls @ 50 mls/hr IV Q12H [facility] Stop: 12/07/21 17:29 Last Infusion: 12/01/21 07:54 Dose: Infused Mirabegron (Mirabegron Er 25 Mg Tab) 50 mg PO DAILY [facility] Stop: 12/31/21 08:59 Last Admin: 12/01/21 10:11 Dose: 50 mg Miscellaneous (*Fenofibrate*Order Awaiting Action) 1 each N/A QS [facility] Stop: 12/31/21 00:00 Last Admin: 11/30/21 23:26 Dose: Not Given Miscellaneous (*Vesicare*Order Awaiting Action) 1 each N/A QS [facility] Stop: 12/31/21 00:00 Last Admin: 11/30/21 23:26 Dose: Not Given Multivitamins (Multivitamin Tab) 1 tab PO DAILY [facility] Stop: 12/31/21 08:59 Last Admin: 12/01/21 10:11 Dose: 1 tab Nitroglycerin (Nitroglycerin Sl 0.4 Mg/Tab Tab) 0.4 mg SL UD PRN PRN Reason: Chest Pain Stop: 12/30/21 14:23 Polyethylene Glycol (Polyethylene (Miralax) 17 Gm Pack) 17 gm PO DAILY PRN PRN Reason: Constipation Stop: 12/30/21 14:23 Tamsulosin HCl (Tamsulosin Hcl 0.4 Mg Cap) 0.4 mg PO DAILY [facility] Stop: 12/31/21 08:59 Last Admin: 12/01/21 10:11 Dose: 0.4 mg Trazodone HCl (Trazodone Hcl 100 Mg Tab) 100 mg PO HS [facility] Stop: 12/30/21 20:59 Last Admin: 11/30/21 20:11 Dose: Not Given Vitamin D (Cholecalciferol 1,000 Units 25 Mcg Tab) 1,000 units PO DAILY [facility] Stop: 12/31/21 08:59 Last Admin: 12/01/21 10:11 Dose: 1,000 units (1) Anemia Anemia type: unspecified type Qualified Code(s): D64.9 - Anemia, unspecified
[2021-12-01] MEDS: FERROUS SULFATE 325 MG TAB PO SCH ×2 (10:11→20:08)
[2021-12-01] MEDS: MULTIVITAMIN TAB PO SCH (10:11)
[2021-12-01] MEDS: CHOLECALCIFEROL 1,000 UNITS 25 MCG TAB PO SCH (10:11)
[2021-12-01] MEDS: ASPIRIN 81 MG ECTAB PO SCH (10:11)
[2021-12-01] MEDS: amLODIPine BESYLATE 5 MG TAB PO SCH (10:11)
[2021-12-01] MEDS: MIRABEGRON ER 25 MG TAB PO SCH (10:11)
[2021-12-01] MEDS: TAMSULOSIN HCL 0.4 MG CAP PO SCH (10:11)
[2021-12-01] MEDS: GABAPENTIN 400 MG CAP PO SCH ×2 (10:11→20:08)
[2021-12-01] MEDS: *FENOFIBRATE*ORDER AWAITING ACTION SCH (10:26)
[2021-12-01 10:39] LABS: Hematocrit (blood only) 26.4 % (40.1-51.0); Hemoglobin 8.2 g/dl (14.0-18.0); Mean Corpuscular Hemoglobin 28.8 pg (25.0-34.0); Mean Corpuscular Hgb Conc 31.1 g/dL (32.0-36.0); Mean Corpuscular Volume 92.6 fL (80.0-100.0); Mean Platelet Volume 10.7 fL (9.4-12.4); Platelet Count 443 K/uL (130-400); RDW Coefficient of Variation 16.2 % (11.5-14.5); RDW Standard Deviation 55.2 fL (36.4-46.3); Red Blood Count 2.85 M/uL (4.63-6.08); White Blood Count 8.93 K/ul (4.8-10.8)
[2021-12-01 11:02] LABS: Albumin Globulin Ratio 0.8 (0.9-2); Albumin Level 2.6 gm/dl (3.4-5.0); BUN Creatinine Ratio 32.7 (10-20); Basophils # (auto) 0.05 K/uL (0-0.2); Basophils % (auto) 0.6 %; Bilirubin,Total 0.7 mg/dl (0.2-1.0); Calcium 9.1 mg/dl (8.5-10.1); Creatinine Clr Calc Pharmacy 32.9 ml/min; Echinocytes 1+; Eosinophils # (auto) 0.45 K/uL (0-0.50); Est GFR (African American) 33.7 ml/min; Est GFR (Non-African American) 29.1 ml/min; Globulin 3.3 gm/dl (2.5-4.0); Immature Granulocytes # (auto) 0.03 K/uL (0.00-0.02); Immature Granulocytes % (auto) 0.3 %; Lymphocytes # (auto) 0.53 K/uL (1.2-3.4); Lymphocytes % (auto) 5.9 %; Magnesium 2.1 mg/dl (1.7-2.4); Monocytes # (auto) 0.62 K/uL (0.24-0.82); Monocytes % (auto) 6.9 %; Neutrophils # (auto) 7.25 K/uL (1.4-6.5); Neutrophils % (auto) 81.3 %; Phosphorus 4.2 mg/dl (2.5-4.9); Polychromasia 1+; Potassium 5.4 mmol/L (3.5-5.1); Total Protein 5.9 gm/dl (6.0-8.3)
[2021-12-01 11:12] LABS: Ferritin 612.3 ng/ml (8-388)
--- NOTE | 2021-12-01 11:43 | Cardiology Progress Note ---
Date of Service December 01, 2021 Assessment & Plan (1) Acute respiratory failure with hypoxia: Plan: * Presenting chest x-ray with right greater than left airspace opacities. Report of chest abdomen pelvis CT performed at [facility] 11/14/2021 describes bilateral groundglass opacities and small bilateral pleural effusions at that time. * Perhaps there is an element of volume overload, however the imaging does suggest superimposed infectious or inflammatory lung process * Records from [facility] [place] reviewed, sputum samples obtained while on ventilator 11/15/2021 included Legionella, Nocardia, pneumocystis, MRSA, all of which were negative. A viral respiratory panel performed at that time was also negative * No recent work-up for underlying autoimmune disease present in outside records per my review. -Question if patient actually improved with diuresis at time of previous h ospitalization as a result of treatment for noncardiac pulmonary edema (2) Acute kidney injury superimposed on CKD: Plan: * Prior to recent admissions, baseline creatinine as outpatient had been in the range of 1.5-2.1 with noted concerns of intermittent NSAID use * Creatinine today 2.11. * Hold diuretic therapy today (3) Acute hyperkalemia: Plan: * Presenting potassium level of 6.2, down to 5.4. * Consider potassium binder such as Kayexalate or Veltassa (4) Anemia: Plan: * Patient with recent anemia, hemoglobin is ranging from 6.3-8.2 recently, with several hemoglobins in the 9s while at [facility] [place]. Stool occult blood negative on 10/25 * Question if this is a clue to an underlying inflammatory/malignant process (5) Acute encephalopathy: Plan: * CT of the brain compromised by motion artifact without any gross abnormality 11/30. * Continue supportive care. Admission and Anticipated Discharge Date Admission Date: November 30, 2021 Subjective Patient seen in cardiology follow-up of chief complaint of shortness of breath. Currently on oxime mask, with pulse oximetry 94%. Patient more awake today, but certainly not mentating normally. Complains of feeling fatigued, generalized shortness of breath, and generalized aches and pains. Review of Systems Review of Systems: Unobtainable due to reduced consciousness Physical Exam Physical Exam: Temp Pulse Resp BP Pulse Ox O2 Del Method O2 Flow Rate 36.7 C 87 18 139/57 L 94 5 12/01/21 11:28 12/01/21 11:28 12/01/21 11:28 12/01/21 11:35 12/01/21 11:28 12/01/21 11:28 12/01/21 07:45 FiO2 50 12/01/21 02:51 Constitutional: + obese Respiratory: Coarse breath sounds at the bases Cardiovascular: RRR, no murmur, no edema Gastrointestinal (Abdomen): normal bowel sounds, soft, nontender, no hepatosplenomegaly Neurologic: PERRL, EOMI, accommodation nl, no face palsy, no dysarthria Results & Data ([facility]) Laboratory Results Cardiac Enzymes 11/30/21 11/30/21 12/01/21 Range/Units 11:37 17:27 10:04 AST 54 H 28 (13-39) U/L Troponin I High Sens 18.2 D (0-20) pg/ml B-Natriuretic Peptide 347 H (0-100) pg/ml Coagulation 11/30/21 11/30/21 Range/Units 11:11 17:27 PT 12.2 H (9.0-12.0) Seconds APTT < 20.0 L (21.0-31.0) Seconds B-Natriuretic Peptide 347 H (0-100) pg/ml CBC 11/30/21 12/01/21 Range/Units 11:11 10:04 WBC 8.43 8.93 (4.8-10.8) K/ul RBC 2.51 L 2.85 L (4.63-6.08) M/uL Hgb 7.2 L 8.2 L (14.0-18.0) g/dl Hct 23.7 L 26.4 L (40.1-51.0) % Plt Count 380 443 H (130-400) K/uL Neut # (Auto) 6.54 H 7.25 H (1.4-6.5) K/uL Lymph # (Auto) 0.85 L 0.53 L (1.2-3.4) K/uL [place] # (Auto) 0.61 0.62 (0.24-0.82) K/uL Eos # (Auto) 0.35 0.45 (0-0.50) K/uL Baso # (Auto) 0.04 0.05 (0-0.2) K/uL Comprehensive Metabolic Panel 11/30/21 11/30/21 12/01/21 Range/Units 11:37 16:27 10:04 Sodium 132 L 132 L 135 L (136-145) mmol/L Potassium 6.2 H* 5.4 H 5.4 H (3.5-5.1) mmol/L Chloride 99 100 101 (98-107) mmol/L Carbon Dioxide 25 26 26 (21-32) mmol/L BUN 71 H 74 H 69 H (6-23) mg/dl Creatinine 2.18 H 2.27 H 2.11 H (0.6-1.4) mg/dl Glucose 105 H 128 H 113 H (70-99(Fasting)) mg/dl Calcium 8.8 8.7 9.1 (8.5-10.1) mg/dl AST 54 H 28 (13-39) U/L ALT 50 34 (7-52) U/L Alkaline Phosphatase 125 H 108 H (34-104) U/L Total Protein 6.0 5.9 L (6.0-8.3) gm/dl Albumin 2.8 L 2.6 L (3.4-5.0) gm/dl Diagnostic Findings Echocardiogram performed 12/01/2021 and reviewed independently: Hyperdynamic left ventricular systolic function, LVEF in the range of 65 to 70%, right ventricular chamber size and systolic function are normal. Grade 1 diastolic dysfunction is present. There is no significant valvular pathology. There is no pericardial effusion. Compared to the report of the previous study performed at [facility] 11/15/2021, left ventricular ejection fraction was reported to be 45% at that time, with suggestion of right ventricular chamber enlargement. Patient however was on the ventilator at that time, and the study was reported to be technically limited. (1) Anemia Anemia type: unspecified type Qualified Code(s): D64.9 - Anemia, unspecified
[2021-12-01] MEDS: PATIROMER CALCIUM SORBITEX 8.4 GM PACK PO SCH (14:44)
--- NOTE | 2021-12-01 15:33 | Pulmonology Progress Note ---
Date of Service December 01, 2021 Assessment & Plan (1) Acute respiratory failure with hypoxia: Plan: Hypoxemia significantly improved compared to yesterday, but continues to require 5 L of oxygen and easily desaturates with exertion. Will defer further diuresis to the primary care team. I am hesitant to start him on corticosteroids given his severe delirium and agitation. We will see clinical response tomorrow and if he remains hypoxemic, likely start low-dose prednisone. Should he decompensate, will proceed with bronchoscopy if he is intubated. Echo reviewed. EF hyperdynamic. Grade 1 diastolic dysfunction. Discussed with repairer general and appreciate their input. (2) Pneumonia: Plan: Procalcitonin is mildly elevated, but difficult to interpret in the context of acute renal failure. Agree with empiric antibiotics at this time. MRSA screen negative. Continue doxycycline and cefepime. Possible idiopathic interstitial pneumonia. Rheumatologic serologies ordered including Pam 1 antibody, WARREN screen, rheumatoid factor. Bio fire negative. Will order repeat chest x-ray for tomorrow. Laterality: right Lung location: unspecified part of lung Pneumonia type: due to unspecified organism Qualified Code(s): J18.9 - Pneumonia, unspecified organism (3) Uremic encephalopathy: Plan: BUN 69. Patient with STEFFI and hyperkalemia. Recommend nephrology input. Defer diuresis at this time. (4) Acute kidney injury superimposed on CKD: Plan: Possible pulmonary renal syndrome or cardiorenal syndrome as noted previously. Although, no signs of protein or blood in the urinalysis which would go against nephritic syndrome. Recommend nephrology consultation. Monitor urine output closely. Patient also with hyperkalemia. Defer treatment to hospitalist service. Plan Thank you for the consult. We will continue to follow with you. Admission and Anticipated Discharge Date Admission Date: November 30, 2021 Subjective Patient seen and examined this afternoon. He had a desaturation event with physical therapy and required upwards of 12 L of oxygen via oxime mask. He is currently on 5 L of oxygen. He is able to answer questions such as his name and location. He has difficulty with more complex questions. He denies any shortness of breath or chest pain. No fevers overnight. Discussed with bedside nurse. Review of Systems Review of Systems: All systems reviewed & are unremarkable except as noted in HPI & below Physical Exam Physical Exam: Constitutional: Elderly appearing male who is obese in minimal distress. Eyes: Pupils are equal round and reactive to light. Conjunctivae are normal. Anicteric sclera. Ears nose, mouth and throat: Mallampati class 2. Normal posterior oropharynx. Uvula is midline. Neck: Trachea is midline. Visual inspection is normal. Respiratory: Coarse breath sounds bilaterally. Mild tachypnea. Cardiovascular: Regular rate and rhythm. 3 out of 6 systolic flow murmur. Gastrointestinal: Normal bowel sounds, soft, nontender and nondistended. No hepatosplenomegaly noted. Musculoskeletal: No cyanosis. Patient is able to move all extremities. Strength is 5 out of 5 in the upper and lower extremities. Skin: Ecchymosis noted in the right upper extremity. Neurologic: Myoclonic jerks. Psychiatric: Agitated. Results & Data Results & Data ([facility]) Vital Signs (Past 12 Hours) Vital Signs Temp Pulse Pulse Resp BP Pulse Ox O2 Del Method 12/01/21 11:35 139/57 L 12/01/21 11:28 36.7 C 87 18 171/69 H 94 Oxymask 12/01/21 07:45 82 12/01/21 07:45 Oxymask 12/01/21 07:37 36.6 C 88 18 131/63 98 BiPAP O2 Flow Rate 12/01/21 11:35 12/01/21 11:28 12/01/21 07:45 12/01/21 07:45 5 12/01/21 07:37 PG Care Time/CCT Total # of Minutes Spent Total Time Spent with Patient: Total time spent is greater than 50% in coordination of care (as documented) at patient's floor/unit and/or counseling patient: Coding Level of Care Code 49417 Subseq Hosp Care Lvl 3 Diagnoses Acute respiratory failure with hypoxia J96.01 Pneumonia J18.9 Laterality: right Lung location: unspecified part of lung Pneumonia type: due to unspecified organism Uremic encephalopathy G93.49; N19 Acute kidney injury superimposed on CKD N17.9; N18.9
[2021-12-01] MEDS: traZODone HCL 100 MG TAB PO SCH (20:08)
[2021-12-01] MEDS: ACETAMINOPHEN 325 MG TAB PO PRN (22:40)
[2021-12-02] MEDS ORDERED: HALOPERIDOL LACTATE 5 MG/ML 1 ML VIAL IM STA (02:00)
[2021-12-02] MEDS: HEPARIN SOD 5,000 UNIT/0.5 ML VIAL SQ SCH ×3 (05:57→21:16)
[2021-12-02] MEDS: CEFEPIME 2,000 MG in SYRINGE 0 ML IV SCH ×2 (05:59→18:08)
[2021-12-02] MEDS: DOXYCYCLINE HYCLATE 100 MG in DEXTROSE 5% 100 ML IV SCH ×2 (06:00→18:08)
[2021-12-02 06:55] LABS: Creatinine Clr Calc Pharmacy 36.7 ml/min; Est GFR (African American) 38.5 ml/min; Est GFR (Non-African American) 33.2 ml/min; Potassium 5.4 mmol/L (3.5-5.1)
[2021-12-02 07:43] LABS: Albumin Globulin Ratio 0.8 (0.9-2); Albumin Level 2.5 gm/dl (3.4-5.0); Bilirubin,Total 0.7 mg/dl (0.2-1.0); Magnesium 2.1 mg/dl (1.7-2.4); Phosphorus 3.6 mg/dl (2.5-4.9); Total Protein 5.5 gm/dl (6.0-8.3)
[2021-12-02 08:11] LABS: Basophils # (auto) 0.04 K/uL (0-0.2); Basophils % (auto) 0.5 %; Eosinophils # (auto) 0.61 K/uL (0-0.50); Eosinophils % (auto) 6.9 %; Hemoglobin 7.6 g/dl (14.0-18.0); Immature Granulocytes # (auto) 0.05 K/uL (0.00-0.02); Immature Granulocytes % (auto) 0.6 %; Lymphocytes # (auto) 0.75 K/uL (1.2-3.4); Lymphocytes % (auto) 8.5 %; Mean Corpuscular Hemoglobin 28.6 pg (25.0-34.0); Mean Corpuscular Hgb Conc 30.4 g/dL (32.0-36.0); Mean Platelet Volume 10.3 fL (9.4-12.4); Monocytes # (auto) 0.59 K/uL (0.24-0.82); Monocytes % (auto) 6.7 %; Neutrophils # (auto) 6.75 K/uL (1.4-6.5); Neutrophils % (auto) 76.8 %; Platelet Count 516 K/uL (130-400); RDW Coefficient of Variation 16.3 % (11.5-14.5); Red Blood Count 2.66 M/uL (4.63-6.08); White Blood Count 8.79 K/ul (4.8-10.8)
--- NOTE | 2021-12-02 08:12 | XRay Report ---
XR chest 1V portable HISTORY: pneumonia, chf COMPARISON: Chest 11/30/2021. FINDINGS: Multifocal bilateral airspace opacities, right greater than left have slightly progressed. No pneumothorax. Small bilateral pleural effusions. The heart remains mildly enlarged. Advanced degen erative changes again noted within the shoulders. IMPRESSION: Slight progression of the multifocal bilateral airspace opacities. ACT 112: Negative or not required by law. Electronically signed by: Carlito Molina M.D. 12/02/2021 8:11 AM
[2021-12-02 08:28] LABS: Poikilocytosis Present; Polychromasia 1+
[2021-12-02] MEDS: amLODIPine BESYLATE 5 MG TAB PO SCH ×2 (08:48→09:02)
[2021-12-02] MEDS: FENOFIBRATE NANOCRYSTALLIZED 145 MG TABLET PO SCH ×2 (08:48→09:02)
[2021-12-02] MEDS: ASPIRIN 81 MG ECTAB PO SCH ×2 (08:48→09:02)
[2021-12-02] MEDS: CHOLECALCIFEROL 1,000 UNITS 25 MCG TAB PO SCH ×2 (08:48→09:02)
[2021-12-02] MEDS: FERROUS SULFATE 325 MG TAB PO SCH ×3 (08:48→20:44)
[2021-12-02] MEDS: methylPREDNISolone 40 MG in SYRINGE 0 ML IV SCH ×2 (08:49→20:09)
[2021-12-02] MEDS: MIRABEGRON ER 25 MG TAB PO SCH ×2 (08:49→09:03)
[2021-12-02] MEDS: TAMSULOSIN HCL 0.4 MG CAP PO SCH ×2 (08:49→09:03)
[2021-12-02] MEDS: MULTIVITAMIN TAB PO SCH ×2 (08:49→09:03)
[2021-12-02] MEDS: GABAPENTIN 400 MG CAP PO SCH ×3 (08:49→20:09)
--- NOTE | 2021-12-02 13:03 | Hospitalist Progress Note ---
Date of Service December 02, 2021 Assessment & Plan (1) Acute respiratory failure with hypoxia: Plan: - has history of CHF and was diuresed 13L at [facility] last month - unclear if this presenation is all CHF related as CT chest with extensive opacities bilaterally with somewhat nodular appearance - hypoxic to 60-70s on RA in ED requiring 15L NRB - wean as tolerated - TTE - G1DD, hyperdynamic, EF 65-70% - IV lasix - Cardiology consult - concern for possible underlying inflammatory or other lung pathology given CT findings - CRP 14, ESR 67, PCT slightly elevated - rheum work up sent and pending - Pulm consulted for further recs - antibiotics for possible HAP or other chronic pulmonary infection - started on steroids by pulm - monitor response (2) CHF (congestive heart failure): Plan: - unable to obtain [facility] records with recent TTE - TTE as above - IV lasix - will trial dose of IV lasix today and monitor for response - Telemetry/PCU monitoring - Cardiology consulted - resume home meds for now (3) Acute hyperkalemia: Plan: - worsening renal function compared to prior admission - unclear etiology but CHF could be contributing - IV lasix as above - s/p albuterol in ED - ECG without changes for hyperkalemia - K persistent at 5.4 - started on V[place] (4) Anemia: Plan: - unclear etiology - iron studies sent - b12, folate wnl - no signs of bleeding - monitor for now - transfuse for hgb <7 (5) Acute kidney injury superimposed on CKD: Plan: - in the setting of CHF, acute illness - unclear etiology at this time - will try IV lasix as above given history of CHF - monitor I/O - trend Cr - consider renal consult if no improvement with interventions (6) Altered mental status: Plan: - likely due to acute hypoxic respiratory failure vs other pathology/acute illness - patient is being treated for possible metabolic encephalopathy from infection vs hypoxic encephalopathy given hypoxic on presentation - agitated and delirious in the ED requiring chemical sedation as verbal redirection unsuccessful - CTH unremarkable - will monitor for resolution with above interventions - received haldol again overnight for agitation (7) Hyponatremia: Plan: - in the setting of CHF, acute illness - will monitor for now - fluid restriction <1.5L for now - trend Na (8) BPH (benign prostatic hyperplasia): Plan: - continue home meds (9) HTN (hypertension): Plan: - BP stable - continue home meds as needed (10) HLD (hyperlipidemia): Plan: - reported statin allergy - continue fenofibrate Plan DVT ppx: heparin SC Code Status: Full Code Dispo: PCU/Telemetry Solis Mccauley MD [facility] Medicine Admission and Anticipated Discharge Date Admission Date: November 30, 2021 Subjective The patient is a 76 year old man with pmh HLD, HTN, obesity, BPH, CDK, chronic pain, anemia who presented to the ED from physical therapy because he appeared short of breath and ill appearing. Found to have multifocal airspace opacities on CXR and CT with nodular appearance, increased slightly from prior imaging. Receiving IV diuresis and empiric antibiotics with Cardiology and Pulmonology f esdras. TTE demonstrated G1DD but LVEF wnl. Inflammatory markers elevated, rheumatologic work up sent. Started on low dose steroids for inflammation. The patient remains somnolent today but will answer questions if persistent. Received haldol again overnight for agitation. Patient did not participate in other parts of the exam. Review of Systems Review of Systems: Unobtainable due to reduced consciousness Physical Exam Physical Exam: Constitutional:L WD/WN, vitals as a madelin + obese aime nolent but wakes t o stimulation - re ceived Haldol over night Eyes: PERRL, conjunctiva e normal, anicteri c sclerae ENMT: external ear and n ose normal, oropha rynx normal Neck: trachea midline, n o thyromegaly Respiratory: normal respiratory effort; no respir atory distress, no labored breathing , no retractions, does not use acces damari muscles, no c ough and not tachy pneic Auscultatio n: crackles in rig ht lungs - difficu lt exam given body habitus and patie nt not able to par ticipate in exam - anterior chest au scultated Cardiovascular:L Rate/Rhythm: regul ar rate and regula r rhythm Heart So unds: normal S1 an d normal S2; no mu rmur Gastrointestinal ( Abdomen): normal bowel sound s, soft, nontender , no hepatosplenom egaly Musculoskeletal: no cyanosis or clu bbing, extremities motor strength 5/ 5 Skin: Trauma: + evidence of skin trauma an d + abrasion (left and right forearm s) Psychiatric: Orientation: orien estephania to person and oriented to place; + not alert (daniela able), + not orien estephania to time and + uncooperative Results & Data Results & Data ([facility]) Vital Signs (Past 12 Hours) Vital Signs Temp Pulse Pulse Resp BP BP Pulse Ox 12/02/21 11:39 36.8 C 91 H 20 148/52 H 95 12/02/21 11:37 86 23 94 12/02/21 09:07 12/02/21 08:52 36.8 C 87 24 150/54 H 95 12/02/21 07:59 85 21 96 12/02/21 03:35 83 24 98 12/02/21 02:42 37.5 C 88 18 136/64 98 O2 Del Method FiO2 12/02/21 11:39 BiPAP 12/02/21 11:37 40 12/02/21 09:07 BiPAP 12/02/21 08:52 BiPAP 12/02/21 07:59 40 12/02/21 03:35 40 12/02/21 02:42 BiPAP Laboratory Results Short CBC 12/02/21 Range/Units 07:39 WBC 8.79 (4.8-10.8) K/ul Hgb 7.6 L (14.0-18.0) g/dl Hct 25.0 L (40.1-51.0) % Plt Count 516 H (130-400) K/uL BMP 12/02/21 06:07 Sodium 135 L Potassium 5.4 H Chloride 102 Carbon Dioxide 25 BUN 68 H Creatinine 1.89 H Glucose 91 Calcium 9.0 Cardiac Enzymes 12/01/21 Range/Units 14:27 Total Creatine Kinase 32 (30-223) U/L Liver Function 12/02/21 Range/Units 06:07 Total Bilirubin 0.7 (0.2-1.0) mg/dl AST 24 (13-39) U/L ALT 26 (7-52) U/L Alkaline Phosphatase 89 (34-104) U/L Albumin 2.5 L (3.4-5.0) gm/dl Diagnostic Findings Chest X-Ray 12/02/21 07:00 XR chest 1V portable HISTORY: pneumonia, chf COMPARISON: Chest 11/30/2021. FINDINGS: Multifocal bilateral airspace opacities, right greater than left have slightly progressed. No pneumothorax. Small bilateral pleural effusions. The heart remains mildly enlarged. Advanced degenerative changes again noted within the shoulders. IMPRESSION: Slight progression of the multifocal bilateral airspace opacities. ACT 112: Negative or not required by law. Electronically signed by: Carlito Molina M.D. 12/02/2021 8:11 AM Medications Administered Current Inpatient Medications Acetaminophen (Acetaminophen 325 Mg Tab) 650 mg PO Q8H PRN PRN Reason: pain Stop: 12/30/21 18:16 Last Admin: 12/01/21 22:40 Dose: 650 mg Amlodipine Besylate (Amlodipine Besylate 5 Mg Tab) 10 mg PO DAILY QUIANA Stop: 12/31/21 08:59 Last Admin: 12/02/21 09:02 Dose: Not Given Aspirin (Aspirin 81 Mg Ectab) 81 mg PO DAILY QUIANA Stop: 12/31/21 08:59 Last Admin: 12/02/21 09:02 Dose: Not Given Calcium Carbonate (Calcium Carbonate 500 Mg Chewable Tab) 1,000 mg PO DAILY PRN PRN Reason: Indigestion Stop: 12/30/21 18:15 Fenofibrate (Fenofibrate Nanocrystallized 145 Mg Tablet) 145 mg PO DAILY QUIANA; Protocol Stop: 01/01/22 08:59 Last Admin: 12/02/21 09:02 Dose: Not Given Ferrous Sulfate (Ferrous Sulfate 325 Mg Tab) 325 mg PO BID QUIANA Stop: 12/30/21 20:59 Last Admin: 12/02/21 09:02 Dose: Not Given Gabapentin (Gabapentin 400 Mg Cap) 400 mg PO BID QUIANA; Protocol Stop: 12/30/21 20:59 Last Admin: 12/02/21 09:03 Dose: Not Given Heparin Sodium (Porcine) (Heparin Sod 5,000 Unit/0.5 Ml Vial) 5,000 units SQ Q8 QUIANA Stop: 12/30/21 21:59 Last Admin: 12/02/21 13:12 Dose: 5,000 units Cefepime HCl 2,000 mg/ Syringe 20 mls @ 5 mls/min IV Q12H QUIANA; Protocol Stop: 12/07/21 18:59 Last Admin: 12/02/21 05:59 Dose: 5 mls/min Doxycycline Hyclate 100 mg/ (Dextrose) 110 mls @ 50 mls/hr IV Q12H QUIANA Stop: 12/07/21 17:29 Last Infusion: 12/02/21 08:51 Dose: Infused Methylprednisolone 40 mg/ (Syringe) 0.64 mls @ 1.5 mls/min IV BID QUIANA Stop: 01/01/22 08:59 Last Admin: 12/02/21 08:49 Dose: 1.5 mls/min Mirabegron (Mirabegron Er 25 Mg Tab) 50 mg PO DAILY QUIANA Stop: 12/31/21 08:59 Last Admin: 12/02/21 09:03 Dose: Not Given Miscellaneous (*Vesicare*Order Awaiting Action) 1 each N/A QS QUIANA Stop: 12/31/21 00:00 Last Admin: 12/02/21 13:12 Dose: Not Given Multivitamins (Multivitamin Tab) 1 tab PO DAILY QUIANA Stop: 12/31/21 08:59 Last Admin: 12/02/21 09:03 Dose: Not Given Nitroglycerin (Nitroglycerin Sl 0.4 Mg/Tab Tab) 0.4 mg SL UD PRN PRN Reason: Chest Pain Stop: 12/30/21 14:23 Patiromer (Patiromer Calcium Sorbitex 8.4 Gm Pack) 8.4 gm PO DAILY@1100 [facility] Stop: 12/31/21 12:39 Last Admin: 12/02/21 13:12 Dose: 8.4 gm Polyethylene Glycol (Polyethylene (Miralax) 17 Gm Pack) 17 gm PO DAILY PRN PRN Reason: Constipation Stop: 12/30/21 14:23 Tamsulosin HCl (Tamsulosin Hcl 0.4 Mg Cap) 0.4 mg PO DAILY QUIANA Stop: 12/31/21 08:59 Last Admin: 12/02/21 09:03 Dose: Not Given Trazodone HCl (Trazodone Hcl 100 Mg Tab) 100 mg PO HS QUIANA Stop: 12/30/21 20:59 Last Admin: 12/01/21 20:08 Dose: 100 mg Vitamin D (Cholecalciferol 1,000 Units 25 Mcg Tab) 1,000 units PO DAILY QUIANA Stop: 12/31/21 08:59 Last Admin: 12/02/21 09:02 Dose: Not Given (1) Anemia Anemia type: unspecified type Qualified Code(s): D64.9 - Anemia, unspecified
[2021-12-02] MEDS: PATIROMER CALCIUM SORBITEX 8.4 GM PACK PO SCH (13:12)
--- NOTE | 2021-12-02 13:41 | Pulmonology Progress Note ---
Date of Service December 02, 2021 Assessment & Plan (1) Acute respiratory failure with hypoxia: Plan: Continue to wean oxygen as able. Chest x-ray unchanged. Started 40 mg IV Solu- Medrol twice daily. Rheumatologic labs pending. Unable to perform bronchoscopy given severe agitation Echo reviewed. EF hyperdynamic. Grade 1 diastolic dysfunction. (2) Pneumonia: Plan: Procalcitonin is mildly elevated, but difficult to interpret in the context of acute renal failure. Agree with empiric antibiotics at this time. MRSA screen negative. Continue doxycycline and cefepime. Check urine Legionella. Possible idiopathic interstitial pneumonia. Rheumatologic serologies ordered including Pam 1 antibody, WARREN screen, rheumatoid factor. Bio fire negative. X-ray unchanged. Laterality: right Lung location: unspecified part of lung Pneumonia type: due to unspecified organism Qualified Code(s): J18.9 - Pneumonia, unspecified organism (3) Uremic encephalopathy: Plan: STEFFI slightly improved. (4) Acute kidney injury superimposed on CKD: Plan: Managed by the primary service. (5) Delirium: Plan: Multifactorial related to medical condition. Obtain ABG now. Avoid overly sedating agents as he has significant risk for worsening respiratory failure needing intubation. Recommend one-to-one sitter. Discussed with bedside nursing. Plan Thank you for the consult. We will continue to follow with you. Admission and Anticipated Discharge Date Admission Date: November 30, 2021 Subjective Patient very delirious and pulling off his oxime mask. at bedside. Notes that he has had trouble with delirium in the past. Review of Systems Review of Systems: Unobtainable due to cognitive status Physical Exam Physical Exam: Constitutional: Elderly appearing male who is obese in moderate distress. Delirious Eyes: Pupils are equal round and reactive to light. Conjunctivae are normal. Anicteric sclera. Ears nose, mouth and throat: Mallampati class 2. Normal posterior oropharynx. Uvula is midline. Neck: Trachea is midline. Visual inspection is normal. Respiratory: Coarse breath sounds bilaterally. Mild tachypnea. Cardiovascular: Regular rate and rhythm. 3 out of 6 systolic flow murmur. Gastrointestinal: Normal bowel sounds, soft, nontender and nondistended. No hepatosplenomegaly noted. Musculoskeletal: No cyanosis. Patient is able to move all extremities. Strength is 5 out of 5 in the upper and lower extremities. Skin: Ecchymosis noted in the right upper extremity. Neurologic: Myoclonic jerks. Psychiatric: Agitated. Results & Data Results & Data ([facility]) Vital Signs (Past 12 Hours) Vital Signs Temp Pulse Pulse Resp BP BP Pulse Ox 12/02/21 11:39 36.8 C 91 H 20 148/52 H 95 12/02/21 11:37 86 23 94 12/02/21 09:07 12/02/21 08:52 36.8 C 87 24 150/54 H 95 12/02/21 07:59 85 21 96 12/02/21 03:35 83 24 98 12/02/21 02:42 37.5 C 88 18 136/64 98 O2 Del Method FiO2 12/02/21 11:39 BiPAP 12/02/21 11:37 40 12/02/21 09:07 BiPAP 12/02/21 08:52 BiPAP 12/02/21 07:59 40 12/02/21 03:35 40 12/02/21 02:42 BiPAP PG Care Time/CCT Total # of Minutes Spent Total Time Spent with Patient: Total time spent is greater than 50% in coordination of care (as documented) at patient's floor/unit and/or counseling patient: Coding Level of Care Code 96091 Subseq Hosp Care Lvl 3 Diagnoses Acute respiratory failure with hypoxia J96.01 Pneumonia J18.9 Laterality: right Lung location: unspecified part of lung Pneumonia type: due to unspecified organism Uremic encephalopathy G93.49; N19 Acute kidney injury superimposed on CKD N17.9; N18.9 Delirium R41.0
[2021-12-02 14:27] LABS: Base Excess ABG -1.1 mEq/L (-9-1.8); HCO3 ABG 23 mmol/L (19-24); Oxygen Saturation ABG 99.6 % (90-95); PCO2 ABG 34 mmHg (35-46); PO2 ABG 81 mmHg (80-95); pH ABG 7.43 (7.35-7.45)
[2021-12-02 14:30] LABS: Allen Test Pos (Pos)
[2021-12-02] MEDS: traZODone HCL 100 MG TAB PO SCH (20:09)
[2021-12-03] MEDS ORDERED: OLANZapine ZYDIS 5 MG ORALLY DIS. TAB PO STA (01:48)
[2021-12-03] MEDS: DOXYCYCLINE HYCLATE 100 MG in DEXTROSE 5% 100 ML IV SCH ×2 (06:03→17:52)
[2021-12-03] MEDS: HEPARIN SOD 5,000 UNIT/0.5 ML VIAL SQ SCH ×3 (06:03→21:46)
[2021-12-03] MEDS: CEFEPIME 2,000 MG in SYRINGE 0 ML IV SCH ×2 (06:03→17:53)
[2021-12-03 06:19] LABS: Basophils # (auto) 0.01 K/uL (0-0.2); Basophils % (auto) 0.1 %; Hematocrit (blood only) 26.9 % (40.1-51.0); Hemoglobin 8.6 g/dl (14.0-18.0); Immature Granulocytes # (auto) 0.06 K/uL (0.00-0.02); Immature Granulocytes % (auto) 0.6 %; Lymphocytes % (auto) 5.8 %; Mean Corpuscular Hemoglobin 28.8 pg (25.0-34.0); Monocytes # (auto) 0.44 K/uL (0.24-0.82); Monocytes % (auto) 4.2 %; Neutrophils # (auto) 9.28 K/uL (1.4-6.5); Neutrophils % (auto) 89.3 %; Platelet Count 502 K/uL (130-400); RDW Standard Deviation 53.1 fL (36.4-46.3); Red Blood Count 2.99 M/uL (4.63-6.08); White Blood Count 10.39 K/ul (4.8-10.8)
[2021-12-03 06:52] LABS: Albumin Globulin Ratio 0.8 (0.9-2); Albumin Level 2.7 gm/dl (3.4-5.0); Bilirubin,Total 0.6 mg/dl (0.2-1.0); Calcium 9.8 mg/dl (8.5-10.1); Creatinine Clr Calc Pharmacy 37.5 ml/min; Est GFR (African American) 39.5 ml/min; Est GFR (Non-African American) 34.1 ml/min; Globulin 3.6 gm/dl (2.5-4.0); Magnesium 2.3 mg/dl (1.7-2.4); Phosphorus 3.2 mg/dl (2.5-4.9); Potassium 4.9 mmol/L (3.5-5.1); Total Protein 6.3 gm/dl (6.0-8.3)
[2021-12-03 08:11] LABS: Codeine Urine 52 ng/mL (<50); Hydrocodone Urine NEGATIVE ng/mL (<50); Hydromor Urine 645 ng/mL (<50); Morphine Urine >10000 ng/mL (<50); Norhydrocodone Conf Ur NEGATIVE ng/mL (<50); Noroxycodone Urine NEGATIVE ng/mL (<50); Oxycodone Urine NEGATIVE ng/mL (<50); Oxymorph Urine NEGATIVE ng/mL (<50)
[2021-12-03] MEDS: CHOLECALCIFEROL 1,000 UNITS 25 MCG TAB PO SCH ×2 (09:24→10:29)
[2021-12-03] MEDS: ASPIRIN 81 MG ECTAB PO SCH ×2 (09:24→10:28)
[2021-12-03] MEDS: amLODIPine BESYLATE 5 MG TAB PO SCH ×2 (09:24→10:28)
[2021-12-03] MEDS: FENOFIBRATE NANOCRYSTALLIZED 145 MG TABLET PO SCH ×2 (09:24→10:29)
[2021-12-03] MEDS: MIRABEGRON ER 25 MG TAB PO SCH ×2 (09:25→10:29)
[2021-12-03] MEDS: MULTIVITAMIN TAB PO SCH ×2 (09:25→10:29)
[2021-12-03] MEDS: methylPREDNISolone 40 MG in SYRINGE 0 ML IV SCH ×2 (09:25→19:34)
[2021-12-03] MEDS: TAMSULOSIN HCL 0.4 MG CAP PO SCH ×2 (09:25→10:29)
[2021-12-03] MEDS: GABAPENTIN 400 MG CAP PO SCH ×3 (09:25→19:29)
[2021-12-03] MEDS: FERROUS SULFATE 325 MG TAB PO SCH ×3 (09:25→19:29)
--- NOTE | 2021-12-03 11:13 | Pulmonology Progress Note ---
Date of Service December 03, 2021 Assessment & Plan (1) Acute respiratory failure with hypoxia: Plan: Continue to wean oxygen as able. Chest x-ray unchanged. 40 mg IV Solu-Medrol twice daily started 12/02/2021. Rheumatologic labs pending. Consider bronchoscopy early next week to rule out infectious/malignant concerns. Echo reviewed. EF hyperdynamic. Grade 1 diastolic dysfunction. ABG 12/02/2021 revealed respiratory alkalosis with a pH of 7.43 and a PCO2 of 34. Bicarb 23. Mild AA gradient with a PaO2 of 81 mmHg on 5 L of oxygen. (2) Pneumonia: Plan: Procalcitonin is mildly elevated, but difficult to interpret in the context of acute renal failure. Agree with empiric antibiotics at this time. MRSA screen negative. Continue doxycycline and cefepime. Urine Legionella pending. Possible idiopathic interstitial pneumonia. Rheumatologic serologies ordered including Pam 1 antibody, WARREN screen, rheumatoid factor. Bio fire negative. X-ray unchanged. Laterality: right Lung location: unspecified part of lung Pneumonia type: due to unspecified organism Qualified Code(s): J18.9 - Pneumonia, unspecified organism (3) Uremic encephalopathy: Plan: STEFFI slightly improved. (4) Acute kidney injury superimposed on CKD: Plan: Managed by the primary service. (5) Delirium: Plan: Multifactorial related to medical condition. Avoid overly sedating agents as he has significant risk for worsening respiratory failure needing intubation. Recommend one-to-one sitter. Discussed with bedside nursing. Plan Thank you for the consult. We will continue to follow with you. Admission and Anticipated Discharge Date Admission Date: November 30, 2021 Subjective Patient seen and examined. Resting comfortably. No significant events overnight. Hypertensive today. Review of Systems Review of Systems: All systems reviewed & are unremarkable except as noted in HPI & below Physical Exam Physical Exam: Constitutional: Elderly appearing male who is obese in moderate distress. Delirious Eyes: Pupils are equal round and reactive to light. Conjunctivae are normal. Anicteric sclera. Ears nose, mouth and throat: Mallampati class 2. Normal posterior oropharynx. Uvula is midline. Neck: Trachea is midline. Visual inspection is normal. Respiratory: Coarse breath sounds bilaterally. Mild tachypnea. Cardiovascular: Regular rate and rhythm. 3 out of 6 systolic flow murmur. Gastrointestinal: Normal bowel sounds, soft, nontender and nondistended. No hepatosplenomegaly noted. Musculoskeletal: No cyanosis. Patient is able to move all extremities. Strength is 5 out of 5 in the upper and lower extremities. Skin: Ecchymosis noted in the right upper extremity. Neurologic: No focal deficits. Psychiatric: Calm. Results & Data Results & Data ([facility]) Vital Signs (Past 12 Hours) Vital Signs Temp Pulse Pulse Resp BP BP Pulse Ox 12/03/21 08:39 36.8 C 97 H 20 203/63 H 93 12/03/21 03:01 83 19 94 12/03/21 03:14 37.2 C 85 18 130/59 L 96 O2 Del Method FiO2 12/03/21 08:39 BiPAP 12/03/21 03:01 50 12/03/21 03:14 BiPAP PG Care Time/CCT Total # of Minutes Spent Total Time Spent with Patient: Total time spent is greater than 50% in coordination of care (as documented) at patient's floor/unit and/or counseling patient: Coding Level of Care Code 15348 Subseq Hosp Care Lvl 2 Diagnoses Acute respiratory failure with hypoxia J96.01 Pneumonia J18.9 Laterality: right Lung location: unspecified part of lung Pneumonia type: due to unspecified organism Uremic encephalopathy G93.49; N19 Acute kidney injury superimposed on CKD N17.9; N18.9 Delirium R41.0
--- NOTE | 2021-12-03 11:37 | Hospitalist Progress Note ---
Date of Service December 03, 2021 Assessment & Plan (1) Acute respiratory failure with hypoxia: Plan: - has history of CHF and was diuresed 13L at [facility] last month - unclear if this presenation is all CHF related as CT chest with extensive opacities bilaterally with somewhat nodular appearance - hypoxic to 60-70s on RA in ED requiring 15L NRB - wean as tolerated - TTE - G1DD, hyperdynamic, EF 65-70% - IV lasix - Cardiology consult - concern for possible underlying inflammatory or other lung pathology given CT findings - CRP 14, ESR 67, PCT slightly elevated - rheum work up sent and pending - Pulm consulted for further recs - antibiotics for possible HAP or other chronic pulmonary infection - started on steroids by pulm - monitor response - pulm for possible bronch early next weak for BAL (2) CHF (congestive heart failure): Plan: - unable to obtain [facility] records with recent TTE - TTE as above - IV lasix - will trial dose of IV lasix today and monitor for response - Telemetry/PCU monitoring - Cardiology consulted - resume home meds for now (3) Acute hyperkalemia: Plan: - worsening renal function compared to prior admission - unclear etiology but CHF could be contributing - IV lasix as above - s/p albuterol in ED - ECG without changes for hyperkalemia - continue on Veltassa for now (4) Anemia: Plan: - unclear etiology - iron studies sent - b12, folate wnl - no signs of bleeding - monitor for now - transfuse for hgb <7 (5) Acute kidney injury superimposed on CKD: Plan: - in the setting of CHF, acute illness - unclear etiology at this time - will try IV lasix as above given history of CHF - monitor I/O - trend Cr - Cr improving, close to baseline (6) Altered mental status: Plan: - likely due to acute hypoxic respiratory failure vs other pathology/acute illness - patient is being treated for possible metabolic encephalopathy from infection vs hypoxic encephalopathy given hypoxic on presentation - agitated and delirious in the ED requiring chemical sedation as verbal redirection unsuccessful - CTH unremarkable - will monitor for resolution with above interventions - received olanzapine overnight for agitation - unclear why patient is altered - will consider neuro consult and/or EEG monitoring (7) Hyponatremia: Plan: - in the setting of CHF, acute illness - will monitor for now - fluid restriction <1.5L for now - trend Na - resolved (8) BPH (benign prostatic hyperplasia): Plan: - continue home meds (9) HTN (hypertension): Plan: - BP stable - continue home meds as needed (10) HLD (hyperlipidemia): Plan: - reported statin allergy - continue fenofibrate Plan DVT ppx: heparin SC Code Status: Full Code Dispo: PCU/Telemetry Solis Mccauley MD Hospital Medicine Admission and Anticipated Discharge Date Admission Date: November 30, 2021 Subjective The patient is a 76 year old man with pmh HLD, HTN, obesity, BPH, CDK, chronic pain, anemia who presented to the ED from physical therapy because he appeared short of breath and ill appearing. Found to have multifocal airspace opacities on CXR and CT with nodular appearance, increased slightly from prior imaging. Receiving IV diuresis and empiric antibiotics with Cardiology and Pulmonology following. TTE demonstrated G1DD but LVEF wnl. Inflammatory markers elevated, rheumatologic work up sent. Started on low dose steroids for inflammation. The patient remains somnolent today but will answer questions if persistent. Received olanzapine overnight for agitation. Patient did not participate in other parts of the exam. Review of Systems Review of Systems: Unobtainable due to reduced consciousness Physical Exam Constitutional: WD/WN, vitals as above + obese and + altered mental status Eyes: PERRL, conjunctivae normal, anicteric sclerae ENMT: external ear and nose normal, oropharynx normal Neck: trachea midline, no thyromegaly Respiratory: normal respiratory effort; no respiratory distress, no labored breathing, no retractions, does not use accessory muscles, no cough and not tachypneic Auscultation: lungs clear to auscultation bilaterally; no crackles, no rhonchi and no wheezes Cardiovascular: Rate/Rhythm: regular rate and regular rhythm Heart Sounds: normal S1 and normal S2; no murmur Gastrointestinal (Abdomen): normal bowel sounds, soft, nontender, no he patosplenomegaly Musculoskeletal: no cyanosis or clubbing, extremities motor strength 5/5 Skin: Trauma: + evidence of skin trauma and + abrasion (left and right forearms) Psychiatric: Orientation: oriented to person and oriented to place; + not alert (rousable), + not oriented to time and + uncooperative Results & Data Results & Data ([facility]) Vital Signs (Past 12 Hours) Vital Signs Temp Pulse Pulse Resp BP BP Pulse Ox 12/03/21 08:39 36.8 C 97 H 20 203/63 H 93 12/03/21 03:01 83 19 94 12/03/21 03:14 37.2 C 85 18 130/59 L 96 O2 Del Method FiO2 12/03/21 08:39 BiPAP 12/03/21 03:01 50 12/03/21 03:14 BiPAP Laboratory Results Short CBC 12/03/21 Range/Units 05:57 WBC 10.39 (4.8-10.8) K/ul Hgb 8.6 L (14.0-18.0) g/dl Hct 26.9 L (40.1-51.0) % Plt Count 502 H (130-400) K/uL BMP 12/03/21 05:57 Sodium 138 Potassium 4.9 Chloride 104 Carbon Dioxide 26 BUN 74 H Creatinine 1.85 H Glucose 138 H Calcium 9.8 Liver Function 12/03/21 Range/Units 05:57 Total Bilirubin 0.6 (0.2-1.0) mg/dl AST 19 (13-39) U/L ALT 23 (7-52) U/L Alkaline Phosphatase 88 (34-104) U/L Albumin 2.7 L (3.4-5.0) gm/dl Diagnostic Findings reviewed Medications Administered Current Inpatient Medications Acetaminophen (Acetaminophen 325 Mg Tab) 650 mg PO Q8H PRN PRN Reason: pain Stop: 12/30/21 18:16 Last Admin: 12/01/21 22:40 Dose: 650 mg Amlodipine Besylate (Amlodipine Besylate 5 Mg Tab) 10 mg PO DAILY [facility] Stop: 12/31/21 08:59 Last Admin: 12/03/21 10:28 Dose: Not Given Aspirin (Aspirin 81 Mg Ectab) 81 mg PO DAILY [facility] Stop: 12/31/21 08:59 Last Admin: 12/03/21 10:28 Dose: Not Given Calcium Carbonate (Calcium Carbonate 500 Mg Chewable Tab) 1,000 mg PO DAILY PRN PRN Reason: Indigestion Stop: 12/30/21 18:15 Fenofibrate (Fenofibrate Nanocrystallized 145 Mg Tablet) 145 mg PO DAILY [facility]; Protocol Stop: 01/01/22 08:59 Last Admin: 12/03/21 10:29 Dose: Not Given Ferrous Sulfate (Ferrous Sulfate 325 Mg Tab) 325 mg PO BID [facility] Stop: 12/30/21 20:59 Last Admin: 12/03/21 10:29 Dose: Not Given Gabapentin (Gabapentin 400 Mg Cap) 400 mg PO BID [facility]; Protocol Stop: 12/30/21 20:59 Last Admin: 12/03/21 10:29 Dose: Not Given Heparin Sodium (Porcine) (Heparin Sod 5,000 Unit/0.5 Ml Vial) 5,000 units SQ Q8 [facility] Stop: 12/30/21 21:59 Last Admin: 12/03/21 06:03 Dose: 5,000 units Cefepime HCl 2,000 mg/ Syringe 20 mls @ 5 mls/min IV Q12H [facility]; Protocol Stop: 12/07/21 18:59 Last Admin: 12/03/21 06:03 Dose: 5 mls/min Doxycycline Hyclate 100 mg/ (Dextrose) 110 mls @ 50 mls/hr IV Q12H [facility] Stop: 12/07/21 17:29 Last Infusion: 12/03/21 08:19 Dose: Infused Methylprednisolone 40 mg/ (Syringe) 0.64 mls @ 1.5 mls/min IV BID [facility] Stop: 01/01/22 08:59 Last Admin: 12/03/21 09:25 Dose: 1.5 mls/min Mirabegron (Mirabegron Er 25 Mg Tab) 50 mg PO DAILY [facility] Stop: 12/31/21 08:59 Last Admin: 12/03/21 10:29 Dose: Not Given Miscellaneous (*Vesicare*Order Awaiting Action) 1 each N/A QS [facility] Stop: 12/31/21 00:00 Last Admin: 12/03/21 06:59 Dose: Not Given Multivitamins (Multivitamin Tab) 1 tab PO DAILY [facility] Stop: 12/31/21 08:59 Last Admin: 12/03/21 10:29 Dose: Not Given Nitroglycerin (Nitroglycerin Sl 0.4 Mg/Tab Tab) 0.4 mg SL UD PRN PRN Reason: Chest Pain Stop: 12/30/21 14:23 Patiromer (Patiromer Calcium Sorbitex 8.4 Gm Pack) 8.4 gm PO DAILY@1100 [facility] Stop: 12/31/21 12:39 Last Admin: 12/02/21 13:12 Dose: 8.4 gm Polyethylene Glycol (Polyethylene (Miralax) 17 Gm Pack) 17 gm PO DAILY PRN PRN Reason: Constipation Stop: 12/30/21 14:23 Tamsulosin HCl (Tamsulosin Hcl 0.4 Mg Cap) 0.4 mg PO DAILY [facility] Stop: 12/31/21 08:59 Last Admin: 12/03/21 10:29 Dose: Not Given Trazodone HCl (Trazodone Hcl 100 Mg Tab) 100 mg PO HS [facility] Stop: 12/30/21 20:59 Last Admin: 12/02/21 20:09 Dose: 100 mg Vitamin D (Cholecalciferol 1,000 Units 25 Mcg Tab) 1,000 units PO DAILY [facility] Stop: 12/31/21 08:59 Last Admin: 12/03/21 10:29 Dose: Not Given (1) Anemia Anemia type: unspecified type Qualified Code(s): D64.9 - Anemia, unspecified
[2021-12-03] MEDS: PATIROMER CALCIUM SORBITEX 8.4 GM PACK PO SCH (12:19)
[2021-12-03] MEDS: traZODone HCL 100 MG TAB PO SCH (19:29)
[2021-12-04] MEDS ORDERED: dilTIAZem HCl 5 MG/ML 5 ML VIAL IV STA (02:48)
[2021-12-04 02:49] LABS: Hematocrit (blood only) 28.5 % (40.1-51.0); Hemoglobin 8.8 g/dl (14.0-18.0); Mean Corpuscular Hemoglobin 28.1 pg (25.0-34.0); Mean Corpuscular Hgb Conc 30.9 g/dL (32.0-36.0); Mean Corpuscular Volume 91.1 fL (80.0-100.0); Mean Platelet Volume 9.8 fL (9.4-12.4); Platelet Count 495 K/uL (130-400); RDW Coefficient of Variation 16.6 % (11.5-14.5); RDW Standard Deviation 55.8 fL (36.4-46.3); Red Blood Count 3.13 M/uL (4.63-6.08); White Blood Count 13.64 K/ul (4.8-10.8)
[2021-12-04 02:49] LABS: Troponin I High Sensitivity 37.1 pg/ml (0-20)
[2021-12-04 02:55] LABS: Albumin Globulin Ratio 0.8 (0.9-2); Albumin Level 2.9 gm/dl (3.4-5.0); BUN Creatinine Ratio 40.9 (10-20); Bilirubin,Total 0.6 mg/dl (0.2-1.0); Calcium 10.1 mg/dl (8.5-10.1); Creatinine Clr Calc Pharmacy 37.3 ml/min; Est GFR (African American) 39.3 ml/min; Est GFR (Non-African American) 33.9 ml/min; Globulin 3.8 gm/dl (2.5-4.0); Potassium 4.1 mmol/L (3.5-5.1); Total Protein 6.7 gm/dl (6.0-8.3)
[2021-12-04 03:08] LABS: Magnesium 2.3 mg/dl (1.7-2.4); Phosphorus 2.4 mg/dl (2.5-4.9)
[2021-12-04] MEDS ORDERED: ACETAMINOPHEN 1000 MG/100 ML IV IV STA (03:15)
[2021-12-04 03:16] LABS: Basophils # (auto) 0.01 K/uL (0-0.2); Basophils % (auto) 0.1 %; Immature Granulocytes # (auto) 0.09 K/uL (0.00-0.02); Immature Granulocytes % (auto) 0.7 %; Lymphocytes # (auto) 0.45 K/uL (1.2-3.4); Lymphocytes % (auto) 3.3 %; Monocytes # (auto) 0.73 K/uL (0.24-0.82); Monocytes % (auto) 5.4 %; Neutrophils # (auto) 12.36 K/uL (1.4-6.5); Neutrophils % (auto) 90.5 %; RBC Morphology Unremarkable
[2021-12-04 03:19] LABS: iSTAT Allen Test Pass; iSTAT Art Bld Gas pCO2 Correct 36 mmHg (35-46); iSTAT Art Bld Gas pH Corrected 7.464 (7.35-7.45); iSTAT Arterial Blood Gas HCO3 26 meg/L (19-24); iSTAT Arterial Blood Gas pCO2 36 mmHg (35-46); iSTAT Arterial Blood Gas pH 7.46 (7.35-7.45); iSTAT Arterial Blood Gas pO2 118 mmHg (80-95); iSTAT Arterial Blood Gas pO2 C 117; iSTAT Carbon Dioxide 27 mmol/L (24-31); iSTAT Hematocrit 25 % (42-52); iSTAT Hemoglobin 8.5 g/dl (14.0-18.0); iSTAT Site L Radial; iSTAT Sodium 140 mmol/L (135-144)
[2021-12-04] MEDS ORDERED: HEPARIN 25000 UNIT/500 ML D5W IV ONE (03:48)
[2021-12-04] MEDS: HEPARIN SODIUM/DEXTROSE 25,000 UNITS/500 ML BAG IV SCH (03:51)
[2021-12-04] MEDS ORDERED: SODIUM PHOSPHATE 3 MMOL/1 ML INFUSION IV STA (03:57)
[2021-12-04] MEDS: Heparin IV Adult Wt-Based Low-Dose *NO* Bolus Protocol IV SCH ×4 (04:01→05:07)
[2021-12-04] MEDS ORDERED: SODIUM PHOSPHATE 12 MMOL in SODIUM CHLORIDE 0.9% 250 ML IV ONE (04:15)
--- NOTE | 2021-12-04 07:37 | Pulmonology Progress Note ---
Date of Service December 04, 2021 Assessment & Plan (1) Acute respiratory failure with hypoxia: (2) Pneumonia: Plan: Procalcitonin is mildly elevated, but difficult to interpret in the context of acute renal failure. Agree with empiric antibiotics at this time. MRSA screen negative. Continue doxycycline and cefepime. Urine Legionella pending. Possible idiopathic interstitial pneumonia. Rheumatologic serologies ordered including Pam 1 antibody, WARREN screen, rheumatoid factor. Bio fire negative. X-ray unchanged. Laterality: right Lung location: unspecified part of lung Pneumonia type: due to unspecified organism Qualified Code(s): J18.9 - Pneumonia, unspecified organism (3) Uremic encephalopathy: Plan CT chest 11/30/2021 personally reviewed: Diffuse patchy alveolar opacities appreciated bilaterally more on the right side Bilateral pleural effusions small on the right Cardiomegaly No mediastinal lymphadenopathy ABG 12/04/2021: 7.46/36/118 on 5 L -- Acute hypoxic respiratory failure Multifactorial Patient does have diffuse patchy alveolar opacities which are even appreciated on the CT chest which was done 11/14/2021 Underlying CHF is also playing its role Differential includes autoimmune process, DAH, infection I do think patient has underlying ILD like picture on top of diastolic CHF Continue with steroids for the time being Procalcitonin 0.71, CRP 14.02 Covid-19 PCR negative, influenza A/B negative Respiratory bio fire negative Absolute eosinophil count 610 on 12/02/2021 Patient does have lymphopenia Continue with diuretics O2 supplementation to keep O2 saturation between 88-92% Follow-up autoimmune work-up --Metabolic encephalopathy Patient is not hypercapnic I will order TSH Plan: Chest x-ray from today does show improvement and opacities bilaterally. Interstitial opacities on the right side still persists Patient was still needing BiPAP 02/22 60% to keep O2 saturation 91-92% He does have some encephalopathy which could be steroid-induced or underlying issues with the lung Autoimmune work-up is still pending Currently he is high risk for intubation if we do bronchoscopy. If he continues to be very delirious pulling out the high flow or BiPAP then consideration for intubation will be thought off. Case was discussed with Dr. Caballero Patient's Sudha [phone] was called and current condition and prognosis. Okay to intubate the patient if need be as per patient's Please note the above document was generated using voice recognition software. It may contain grammatical, syntax or spelling errors.Any formal questions or concerns about the content, text or information contained within the body of this dictation should be directly addressed to the provider for clarification. Admission and Anticipated Discharge Date Admission Date: November 30, 2021 Subjective Patient seen and examined at bedside. Patient was little bit restless at the time of examination Overnight patient had an INSOLE DOUBLER as he was complaining of chest pain and removing his high flow At the time of examination he was on BiPAP 12/6 50% saturating 86-87% As per the nurse was also at bedside patient was removing the BiPAP very frequently I increase the EPAP to 8 and increased FiO2 60% and he was able to maintain his saturation 91-92% He is not a good historian. Review of Systems Review of Systems: All systems reviewed & are unremarkable except as noted in Subjective Physical Exam Physical Exam: Constitutional: No acute distress HEENT: EOMI, PERRLA Respiratory system: Decreased air entry bilaterally, no wheeze, no rhonchi, positive crackles appreciated bilateral CVS: S1-S2 positive, no murmurs or gallops Abdomen: Soft, nontender, nondistended, positive bowel sounds x4, obese Extremities: +2 pulses bilaterally radialis/ dorsalis pedis, no cyanosis, no edema Neuro: Awake alert oriented to self Psych: Restless mood G/U: Positive Galan Skin: no rashes, warm and dry Lymphatic: no cervical or axillary lymphadenopathy Results & Data Results & Data ([facility]) Vital Signs (Past 12 Hours) Vital Signs Temp Pulse Pulse Pulse Resp BP Pulse Ox 12/04/21 05:23 18 92 12/04/21 05:05 95 H 18 95 12/04/21 02:45 22 95 12/04/21 03:58 116 H 20 178/73 H 95 12/04/21 02:33 137 H 26 H 133/82 98 12/04/21 02:50 135 H 24 174/87 H 98 12/04/21 03:09 114 H 20 166/64 H 93 12/04/21 02:06 106 H 22 90 12/04/21 01:55 113 H 24 93 12/04/21 01:30 104 H 22 153/65 H 92 12/04/21 01:06 107 H 22 125/85 92 12/04/21 00:57 97 H 22 134/74 93 12/04/21 00:43 106 H 12/04/21 00:32 110 H 22 155/69 H 86 L 12/03/21 22:56 103 H 26 H 94 12/03/21 23:00 116 H 12/03/21 22:39 36.9 C 106 H 22 174/67 H 90 12/03/21 20:00 105 H 20 92 12/03/21 20:00 12/03/21 19:39 92 O2 Del Method O2 Flow Rate FiO2 12/04/21 05:23 High Flow Nasal Cannula 40 60 12/04/21 05:05 High Flow Nasal Cannula 70 12/04/21 02:45 High Flow Nasal Cannula 40 100 12/04/21 03:58 High Flow Nasal Cannula 40 90 12/04/21 02:33 High Flow Nasal Cannula, Non-rebreather 40 100 12/04/21 02:50 High Flow Nasal Cannula, Non-rebreather 12/04/21 03:09 High Flow Nasal Cannula 40 90 12/04/21 02:06 70 12/04/21 01:55 BiPAP 60 12/04/21 01:30 Oxymask, High Flow Nasal Cannula 40 80 12/04/21 01:06 Oxymask, High Flow Nasal Cannula 40 80 12/04/21 00:57 Oxymask, High Flow Nasal Cannula 40 80 12/04/21 00:43 12/04/21 00:32 Oxymask, High Flow Nasal Cannula 40 80 12/03/21 22:56 60 12/03/21 23:00 12/03/21 22:39 High Flow Nasal Cannula 40 80 12/03/21 20:00 High Flow Nasal Cannula 40 80 12/03/21 20:00 Oxymask 12/03/21 19:39 Oxymask 15 Laboratory Results 12/04/21 02:39 12/04/21 02:39 PG Care Time/CCT Total # of Minutes Spent Total Time Spent with Patient: Total time spent is greater than 50% in coordination of care (as documented) at patient's floor/unit and/or counseling patient: Coding Level of Care Code 31228 Subseq Hosp Care Lvl 3 Diagnoses Acute respiratory failure with hypoxia J96.01 Pneumonia J18.9 Laterality: right Lung location: unspecified part of lung Pneumonia type: due to unspecified organism Uremic encephalopathy G93.49; N19
[2021-12-04] MEDS: CEFEPIME 2,000 MG in SYRINGE 0 ML IV SCH ×2 (07:54→18:12)
[2021-12-04] MEDS: DOXYCYCLINE HYCLATE 100 MG in DEXTROSE 5% 100 ML IV SCH ×2 (07:54→18:12)
[2021-12-04] MEDS: FERROUS SULFATE 325 MG TAB PO SCH ×2 (08:03→22:05)
[2021-12-04] MEDS: amLODIPine BESYLATE 5 MG TAB PO SCH (08:03)
[2021-12-04] MEDS: GABAPENTIN 400 MG CAP PO SCH ×2 (08:03→20:23)
[2021-12-04] MEDS: ASPIRIN 81 MG ECTAB PO SCH (08:03)
[2021-12-04] MEDS: FENOFIBRATE NANOCRYSTALLIZED 145 MG TABLET PO SCH (08:03)
[2021-12-04] MEDS: MIRABEGRON ER 25 MG TAB PO SCH (08:03)
[2021-12-04] MEDS: methylPREDNISolone 40 MG in SYRINGE 0 ML IV SCH ×2 (08:03→20:25)
[2021-12-04] MEDS: CHOLECALCIFEROL 1,000 UNITS 25 MCG TAB PO SCH (08:03)
[2021-12-04] MEDS: MULTIVITAMIN TAB PO SCH (08:03)
[2021-12-04] MEDS: TAMSULOSIN HCL 0.4 MG CAP PO SCH (08:04)
--- NOTE | 2021-12-04 08:06 | Communication Note ---
Date of Service: December 04, 2021 Last night code dara was called as patient briefly became unresponsive and hypoxic on high flow. earlier he was on bipap for resp distress. He laso c omplained of chest pain. Ekg showed a fib. Troponin was ordered. Repeat ekg sinus tachycardia. Patient sats improved on high flow and Non breather mask. Bp Stable. LAbs ok. Abg ok. Cxr no new change.Started on low dose iv heparin for a fib. Troponin 37 , to follow repeat troponins. Patient coughed up thick mucus few times. As per nursing staff later he coughed up more mucus and felt better and fio2 has been reduced to 60%. Notified Am provider.
--- NOTE | 2021-12-04 08:58 | XRay Report ---
XR chest 1V portable HISTORY: hypoxia COMPARISON: Chest 12/02/2021. FINDINGS: No pneumothorax. Trace bilateral pleural effusions. The heart remains mildly enlarged. Ther e is improvement in the bilateral airspace opacities. Advanced degenerative changes again noted withi n the shoulders. IMPRESSION: Interval improvement in the bilateral airspace opacities. ACT 112: Negative or not required by law. Electronically signed by: Carlito Molina M.D. 12/04/2021 8:56 AM
--- NOTE | 2021-12-04 09:16 | Electroencephalogram ---
EEG Procedure Note Date of Service December 04, 2021 Start / End Times Start Time: 8:08 AM End Time: 8:[address] Hall History Altered mental status, encephalopathy Home Medication List Medication Instructions Recorded Confirmed Type fenofibrate micronized 134 mg 134 mg PO DAILY 10/25/21 11/30/21 History capsule mirabegron 50 mg tablet,extended 50 mg PO DAILY 10/25/21 11/30/21 History release 24 hr (Myrbetriq) solifenacin 10 mg tablet (Vesicare) 10 mg PO DAILY 10/25/21 11/30/21 History acetaminophen 650 mg 650 mg PO Q8H PRN pain 11/30/21 11/30/21 History tablet,extended release amlodipine 5 mg tablet 10 mg PO DAILY 11/30/21 11/30/21 History artificial saliva 3 applic mucous membrane UD 11/30/21 11/30/21 History aspirin 81 mg capsule 81 mg PO DAILY 11/30/21 11/30/21 History calcium carbonate 500 mg calcium 1,000 mg PO DAILY PRN Indigestion 11/30/21 11/30/21 History (1,250 mg) chewable tablet cholecalciferol (vitamin D3) 25 25 mcg PO DAILY 11/30/21 11/30/21 History mcg (1,000 unit) tablet diclofenac sodium 1 % topical gel 1 ea topical BID PRN Pain 11/30/21 11/30/21 History docusate sodium 100 mg capsule 100 mg PO BID 11/30/21 11/30/21 History (Colace) ferrous sulfate 325 mg (65 mg 325 mg PO BID 11/30/21 11/30/21 History iron) tablet,delayed release fluticasone propionate 50 2 spray intranasal DAILY 11/30/21 11/30/21 History mcg/actuation nasal spray,suspension furosemide 40 mg tablet 40 mg PO DAILY 11/30/21 11/30/21 History gabapentin 400 mg capsule 800 mg PO BID 11/30/21 11/30/21 History methocarbamol 750 mg tablet 750 mg PO QID PRN Muscle Spasm 11/30/21 11/30/21 History morphine 60 mg tablet,extended 60 mg PO BID 11/30/21 11/30/21 History release multivitamin 1 tab PO DAILY 11/30/21 11/30/21 History nitroglycerin 0.4 mg sublingual 0.4 mg sublingual UD 11/30/21 11/30/21 History tablet prednisone 5 mg tablet 5 mg PO DAILY 11/30/21 11/30/21 History tamsulosin 0.4 mg capsule 0.4 mg PO DAILY 11/30/21 11/30/21 History trazodone 50 mg tablet 100 mg PO HS 11/30/21 11/30/21 History triamcinolone acetonide 0.5 % 1 applic topical BID 11/30/21 11/30/21 History topical cream Inpatient Medication List Acetaminophen (Acetaminophen 325 Mg Tab) 650 mg PO Q8H PRN PRN Reason: pain Stop: 12/30/21 18:16 Last Admin: 12/01/21 22:40 Dose: 650 mg Documented By: ALAINA Amlodipine Besylate (Amlodipine Besylate 5 Mg Tab) 10 mg PO DAILY [facility] Stop: 12/31/21 08:59 Last Admin: 12/04/21 08:03 Dose: Not Given Documented By: Admin: 12/03/21 10:28 Dose: Not Given Documented By: Admin: 12/02/21 09:02 Dose: Not Given Documented By: Admin: 12/01/21 10:11 Dose: 10 mg Documented By: ALVARO Aspirin (Aspirin 81 Mg Ectab) 81 mg PO DAILY [facility] Stop: 12/31/21 08:59 Last Admin: 12/04/21 08:03 Dose: Not Given Documented By: Admin: 12/03/21 10:28 Dose: Not Given Documented By: Admin: 12/02/21 09:02 Dose: Not Given Documented By: Admin: 12/01/21 10:11 Dose: 81 mg Documented By: ALVARO Fenofibrate (Fenofibrate Nanocrystallized 145 Mg Tablet) 145 mg PO DAILY [facility]; Protocol Stop: 01/01/22 08:59 Last Admin: 12/04/21 08:03 Dose: Not Given Documented By: Admin: 12/03/21 10:29 Dose: Not Given Documented By: Admin: 12/02/21 09:02 Dose: Not Given Documented By: JUVENAL Ferrous Sulfate (Ferrous Sulfate 325 Mg Tab) 325 mg PO BID [facility] Stop: 12/30/21 20:59 Last Admin: 12/04/21 08:03 Dose: Not Given Documented By: Admin: 12/03/21 19:29 Dose: Not Given Documented By: Admin: 12/03/21 10:29 Dose: Not Given Documented By: Admin: 12/02/21 20:44 Dose: 325 mg Documented By: Admin: 12/02/21 09:02 Dose: Not Given Documented By: Admin: 12/01/21 20:08 Dose: 325 mg Documented By: Admin: 12/01/21 10:11 Dose: 325 mg Documented By: Admin: 11/30/21 20:11 Dose: Not Given Documented By: ALAINA Gabapentin (Gabapentin 400 Mg Cap) 400 mg PO BID [facility]; Protocol Stop: 12/30/21 20:59 Last Admin: 12/04/21 08:03 Dose: Not Given Documented By: Admin: 12/03/21 19:29 Dose: Not Given Documented By: Admin: 12/03/21 10:29 Dose: Not Given Documented By: Admin: 12/02/21 20:09 Dose: 400 mg Documented By: Admin: 12/02/21 09:03 Dose: Not Given Documented By: Admin: 12/01/21 20:08 Dose: 400 mg Documented By: Admin: 12/01/21 10:11 Dose: 400 mg Documented By: Admin: 11/30/21 20:11 Dose: Not Given Documented By: ALAINA Cefepime HCl 2,000 mg/ Syringe 20 mls @ 5 mls/min IV Q12H [facility]; Protocol Stop: 12/07/21 18:59 Last Admin: 12/04/21 07:54 Dose: 5 mls/min Documented By: Admin: 12/03/21 17:53 Dose: 5 mls/min Documented By: Admin: 12/03/21 06:03 Dose: 5 mls/min Documented By: Admin: 12/02/21 18:08 Dose: 5 mls/min Documented By: Admin: 12/02/21 05:59 Dose: 5 mls/min Documented By: Admin: 12/01/21 18:18 Dose: 5 mls/min Documented By: Admin: 12/01/21 07:54 Dose: 5 mls/min Documented By: Admin: 11/30/21 20:10 Dose: 5 mls/min Documented By: ALAINA Doxycycline Hyclate 100 mg/ (Dextrose) 110 mls @ 50 mls/hr IV Q12H [facility] Stop: 12/07/21 17:29 Last Admin: 12/04/21 07:54 Dose: 50 mls/hr Documented By: Infusion: 12/03/21 21:21 Dose: 0 mls/hr Documented By: Admin: 12/03/21 17:52 Dose: 50 mls/hr Documented By: Infusion: 12/03/21 08:19 Dose: 0 mls/hr Documented By: Admin: 12/03/21 06:03 Dose: 50 mls/hr Documented By: Infusion: 12/02/21 20:20 Dose: 0 mls/hr Documented By: Admin: 12/02/21 18:08 Dose: 50 mls/hr Documented By: Infusion: 12/02/21 08:51 Dose: 0 mls/hr Documented By: Admin: 12/02/21 06:00 Dose: 50 mls/hr Documented By: Infusion: 12/01/21 19:43 Dose: 0 mls/hr Documented By: Admin: 12/01/21 17:31 Dose: 50 mls/hr Documented By: Infusion: 12/01/21 07:54 Dose: 0 mls/hr Documented By: Admin: 12/01/21 05:38 Dose: 50 mls/hr Documented By: Infusion: 11/30/21 20:42 Dose: 0 mls/hr Documented By: Admin: 11/30/21 18:30 Dose: 50 mls/hr Documented By: NOREEN Methylprednisolone 40 mg/ (Syringe) 0.64 mls @ 1.5 mls/min IV BID [facility] Stop: 01/01/22 08:59 Last Admin: 12/04/21 08:03 Dose: 1.5 mls/min Documented By: Admin: 12/03/21 19:34 Dose: 1.5 mls/min Documented By: Admin: 12/03/21 09:25 Dose: 1.5 mls/min Documented By: Admin: 12/02/21 20:09 Dose: 1.5 mls/min Documented By: Admin: 12/02/21 08:49 Dose: 1.5 mls/min Documented By: JUVENAL Heparin Sodium/Dextrose (Heparin Sodium/Dextrose) 25,000 units in 500 mls @ 19 mls/hr IV .Q24H [facility]; Protocol Stop: 01/03/22 02:59 Last Titration: 12/04/21 07:04 Dose: 950 units/hr, 19 mls/hr Documented By: NAHUN Co-signed By: ALAINA Admin: 12/04/21 03:51 Dose: 950 units/hr, 19 mls/hr Documented By: ALAINA Co-signed By: BOBBI Mirabegron (Mirabegron Er 25 Mg Tab) 50 mg PO DAILY [facility] Stop: 12/31/21 08:59 Last Admin: 12/04/21 08:03 Dose: Not Given Documented By: Admin: 12/03/21 10:29 Dose: Not Given Documented By: Admin: 12/02/21 09:03 Dose: Not Given Documented By: Admin: 12/01/21 10:11 Dose: 50 mg Documented By: ALVARO Miscellaneous (*Vesicare*Order Awaiting Action) 1 each N/A QS [facility] Stop: 12/31/21 00:00 Last Admin: 12/04/21 07:55 Dose: Not Given Documented By: Admin: 12/03/21 23:28 Dose: Not Given Documented By: Admin: 12/03/21 13:30 Dose: Not Given Documented By: Admin: 12/03/21 06:59 Dose: Not Given Documented By: Admin: 12/02/21 23:28 Dose: Not Given Documented By: Admin: 12/02/21 13:12 Dose: Not Given Documented By: Admin: 12/02/21 08:44 Dose: Not Given Documented By: Admin: 12/01/21 23:08 Dose: Not Given Documented By: Admin: 12/01/21 17:08 Dose: Not Given Documented By: Admin: 12/01/21 10:26 Dose: Not Given Documented By: Admin: 11/30/21 23:26 Dose: Not Given Documented By: ALAINA Multivitamins (Multivitamin Tab) 1 tab PO DAILY [facility] Stop: 12/31/21 08:59 Last Admin: 12/04/21 08:03 Dose: Not Given Documented By: Admin: 12/03/21 10:29 Dose: Not Given Documented By: Admin: 12/02/21 09:03 Dose: Not Given Documented By: Admin: 12/01/21 10:11 Dose: 1 tab Documented By: ALVARO Nitroglycerin (Nitroglycerin Sl 0.4 Mg/Tab Tab) 0.4 mg SL UD PRN PRN Reason: Chest Pain Stop: 12/30/21 14:23 Last Admin: 12/04/21 01:01 Dose: 0.4 mg Documented By: ALAINA Patiromer (Patiromer Calcium Sorbitex 8.4 Gm Pack) 8.4 gm PO DAILY@1100 [facility] Stop: 12/31/21 12:39 Last Admin: 12/03/21 12:19 Dose: Not Given Documented By: Admin: 12/02/21 13:12 Dose: 8.4 gm Documented By: Admin: 12/01/21 14:44 Dose: 8.4 gm Documented By: ALVARO Tamsulosin HCl (Tamsulosin Hcl 0.4 Mg Cap) 0.4 mg PO DAILY [facility] Stop: 12/31/21 08:59 Last Admin: 12/04/21 08:04 Dose: Not Given Documented By: Admin: 12/03/21 10:29 Dose: Not Given Documented By: Admin: 12/02/21 09:03 Dose: Not Given Documented By: Admin: 12/01/21 10:11 Dose: 0.4 mg Documented By: ALVARO Trazodone HCl (Trazodone Hcl 100 Mg Tab) 100 mg PO HS [facility] Stop: 12/30/21 20:59 Last Admin: 12/03/21 19:29 Dose: Not Given Documented By: Admin: 12/02/21 20:09 Dose: 100 mg Documented By: Admin: 12/01/21 20:08 Dose: 100 mg Documented By: Admin: 11/30/21 20:11 Dose: Not Given Documented By: ALAINA Vitamin D (Cholecalciferol 1,000 Units 25 Mcg Tab) 1,000 units PO DAILY [facility] Stop: 12/31/21 08:59 Last Admin: 12/04/21 08:03 Dose: Not Given Documented By: Admin: 12/03/21 10:29 Dose: Not Given Documented By: Admin: 12/02/21 09:02 Dose: Not Given Documented By: Admin: 12/01/21 10:11 Dose: 1,000 units Documented By: ALVARO Discontinued Medications Acetaminophen (Acetaminophen 1000 Mg/100 Ml Iv) 1,000 mg IV NOW STA Stop: 12/04/21 03:16 Last Admin: 12/04/21 03:43 Dose: 1,000 mg Documented By: ALAINA Albuterol (Albut/Ipratrop 3mg/0.5mg Neb 3 Ml Vial) 12 ml NEB ONE ONE; Protocol Stop: 11/30/21 12:21 Last Admin: 11/30/21 13:17 Dose: 12 ml Documented By: NOREEN Diltiazem HCl (Diltiazem Hcl 5 Mg/Ml 5 Ml Vial) 5 mg IV NOW STA Stop: 12/04/21 02:49 Last Admin: 12/04/21 03:02 Dose: 5 mg Documented By: ALAINA Co-signed By: LIANA Fentanyl Citrate (Fentanyl Citrate 100 Mcg/2 Ml Vial) 100 mcg IV NOW STA Stop: 11/30/21 14:07 Last Admin: 11/30/21 14:17 Dose: 100 mcg Documented By: NOREEN Furosemide (Furosemide 40 Mg/4 Ml Vial) 40 mg IV ONE ONE Stop: 11/30/21 16:01 Last Admin: 11/30/21 16:35 Dose: 40 mg Documented By: NOREEN Haloperidol Lactate (Haloperidol Lactate 5 Mg/Ml 1 Ml Vial) 5 mg IM NOW STA Stop: 11/30/21 14:25 Last Admin: 11/30/21 14:45 Dose: 5 mg Documented By: NOREEN Haloperidol Lactate (Haloperidol Lactate 5 Mg/Ml 1 Ml Vial) 2 mg IM NOW STA Stop: 12/01/21 00:38 Last Admin: 12/01/21 01:02 Dose: 2 mg Documented By: ALAINA Haloperidol Lactate (Haloperidol Lactate 5 Mg/Ml 1 Ml Vial) 2 mg IM NOW STA Stop: 12/02/21 02:01 Last Admin: 12/02/21 02:34 Dose: 2 mg Documented By: ALAINA Heparin Sodium (Porcine) (Heparin Sod 5,000 Unit/0.5 Ml Vial) 5,000 units SQ Q8 [facility] Stop: 12/30/21 21:59 Last Admin: 12/03/21 21:46 Dose: 5,000 units Documented By: Admin: 12/03/21 13:29 Dose: 5,000 units Documented By: Admin: 12/03/21 06:03 Dose: 5,000 units Documented By: Admin: 12/02/21 21:16 Dose: 5,000 units Documented By: Admin: 12/02/21 13:12 Dose: 5,000 units Documented By: Admin: 12/02/21 05:57 Dose: 5,000 units Documented By: Admin: 12/01/21 21:00 Dose: 5,000 units Documented By: Admin: 12/01/21 14:45 Dose: 5,000 units Documented By: Admin: 12/01/21 05:38 Dose: 5,000 units Documented By: Admin: 11/30/21 22:55 Dose: 5,000 units Documented By: ALAINA Heparin Sodium/Dextrose (Heparin Iv Adult Wt-Based Low-Dose *No* Bolus Protocol) 1 each IV Q15M [facility]; Protocol Stop: 12/04/21 04:37 Last Admin: 12/04/21 05:07 Dose: Not Given Documented By: Admin: 12/04/21 04:57 Dose: Not Given Documented By: Admin: 12/04/21 04:02 Dose: Not Given Documented By: Admin: 12/04/21 04:01 Dose: Not Given Documented By: ALAINA Heparin Sodium/Dextrose (Heparin 30373 Unit/500 Ml D5w) Confirm Administered Dose 25,000 units IV .STK-MED ONE Stop: 12/04/21 03:49 Last Admin: 12/04/21 04:01 Dose: Not Given Documented By: ALAINA Piperacillin Sod/Tazobactam Sod (Zosyn) 4.5 gm in 120 mls @ 240 mls/hr IV NOW ONE Stop: 11/30/21 11:55 Last Infusion: 11/30/21 14:06 Dose: 0 mls/hr Documented By: Admin: 11/30/21 13:18 Dose: 240 mls/hr Documented By: NOREEN Sodium Chloride (Nss 1000ml) 500 mls @ 999 mls/hr IV .Q31M ONE Stop: 11/30/21 12:50 Last Infusion: 11/30/21 14:06 Dose: 0 mls/hr Documented By: Admin: 11/30/21 13:18 Dose: 999 mls/hr Documented By: NOREEN Calcium Chloride 1,000 mg/ (Dextrose) 60 mls @ 240 mls/hr IV NOW STA Stop: 11/30/21 12:34 Last Infusion: 11/30/21 15:29 Dose: 0 mls/hr Documented By: Admin: 11/30/21 15:09 Dose: 240 mls/hr Documented By: NOREEN Sodium Phosphate 12 mmol/ (Sodium Chloride) 254 mls @ 125 mls/hr IV 0415 ONE Stop: 12/04/21 06:16 Last Infusion: 12/04/21 08:09 Dose: 0 mls/hr Documented By: Admin: 12/04/21 04:55 Dose: 84 mls/hr Documented By: ALAINA Lorazepam (Lorazepam 2 Mg/1 Ml Vial) 0.5 mg IV NOW STA; Protocol Stop: 11/30/21 14:07 Last Admin: 11/30/21 14:17 Dose: 0.5 mg Documented By: NOREEN Miscellaneous (*Fenofibrate*Order Awaiting Action) 1 each N/A QS [facility] Stop: 12/31/21 00:00 Last Admin: 12/01/21 10:26 Dose: Not Given Documented By: Admin: 11/30/21 23:26 Dose: Not Given Documented By: ALAINA Olanzapine (Olanzapine Zydis 5 Mg Orally Dis. Tab) 5 mg PO NOW STA Stop: 12/03/21 01:49 Last Admin: 12/03/21 02:01 Dose: 5 mg Documented By: ALAINA Description This is a 21 electrode EEG with a single channel dedicated to limited EKG. The electrodes were placed in accordance with the International 10-20 system. The background rhythm consists of a mix of 10 Hz alpha and polymorphic moderate amplitude theta activity. Photic stimulation is unremarkable. Hyperventilation is not performed. There is movement artifact throughout the study. There is a symmetric frontal beta rhythm. There is no focal slowing. There are no epileptiform abnormalities. There are no sleep changes. Interpretation Abnormal awake/drowsy EEG revealing evidence of a nonspecific mild to moderate encephalopathy. No epileptiform abnormalities. [facility] EEG Procedure Codes Indication for Procedure (1) Delirium: (2) Encephalopathy: Neurology Neurology: 27010 EEG include record awake & drowsy
[2021-12-04 10:32] LABS: INR 1.5 (0.9-1.1); Partial Thromboplastin Ratio 1.4; Partial Thromboplastin Time 39.3 Seconds (21.0-31.0); Prothrombin Time 15.7 Seconds (9.0-12.0)
[2021-12-04] MEDS: PATIROMER CALCIUM SORBITEX 8.4 GM PACK PO SCH (11:58)
[2021-12-04] MEDS ORDERED: OLANZapine 5 MG TABLET PO ONE (12:45)
--- NOTE | 2021-12-04 13:15 | Electrocardiogram Report ---
Test Reason : Blood Pressure : / mmHG Vent. Rate : 100 BPM Atrial Rate : 138 BPM P-R Int : 000 ms QRS Dur : 106 ms QT Int : 342 ms P-R-T Axes : 000 010 -66 degrees QTc Int : 441 ms Atrial fibrillation Nonspecific T wave abnormality Abnormal ECG When compared with ECG of 30-NOV-2021 10:17, Atrial fibrillation has replaced Sinus rhythm Confirmed by Aleksandar Deleon ([id number]) on 12/04/2021 1:15:18 PM [facility] Confirmed By:Aleksandar Deleon
--- NOTE | 2021-12-04 13:17 | Electrocardiogram Report ---
Test Reason : Blood Pressure : / mmHG Vent. Rate : 120 BPM Atrial Rate : 120 BPM P-R Int : 164 ms QRS Dur : 098 ms QT Int : 308 ms P-R-T Axes : 065 -13 048 degrees QTc Int : 435 ms Poor data quality, interpretation may be adversely affected Sinus tachycardia Nonspecific T wave abnormality Abnormal ECG When compared with ECG of 04-DEC-2021 00:49, (unconfirmed) Sinus rhythm has replaced Atrial fibrillation Confirmed by Aleksandar Deleon ([id number]) on 12/04/2021 1:16:42 PM Referred By: Cole [facility] Confirmed By:Aleksandar Deleon
[2021-12-04 13:22] LABS: JO 1 Antibody <1.0 NEG AI (<1.0 NEG); Rheumatoid Factor <14 IU/mL (<14)
[2021-12-04] MEDS: METOPROLOL TARTRATE 25 MG TAB PO SCH ×2 (13:44→20:27)
--- NOTE | 2021-12-04 14:24 | Cardiology Progress Note ---
Date of Service December 04, 2021 Assessment & Plan (1) Paroxysmal atrial fibrillation with RVR: Plan: Spontaneously converted to sinus rhythm/sinus tachycardia. Agree with low-dose beta-lissett therapy as prescribed. Continue IV heparin for time being. Atrial fibrillation occurring in setting of reversible causes including respiratory insufficiency, hypoxia, and renal insufficiency. (2) Acute respiratory failure with hypoxia: Plan: * Presenting chest x-ray with right greater than left airspace opacities. Report of chest abdomen pelvis CT performed at [facility] [place] 11/14/2021 describes bilateral groundglass opacities and small bilateral pleural effusions at that time. * Records from [facility] [place] reviewed, sputum samples obtained while on ventilator 11/15/2021 included Legionella, Nocardia, pneumocystis, MRSA, all of which were negative. A viral respiratory panel performed at that time was also negative * Continue to hold diuretic therapy as creatinine improving. Further treatment and evaluation as per pulmonary medicine. (3) Acute kidney injury superimposed on CKD: Plan: * Prior to recent admissions, baseline creatinine as outpatient had been in the range of 1.5-2.1 with noted concerns of intermittent NSAID use * Creatinine today 1.86 * Hold diuretic therapy (4) Anemia: Plan: * Patient with recent anemia, hemoglobin is ranging from 6.3-8.2 recently, with several hemoglobins in the 9s while at [facility] [place]. Stool occult blood negative on 10/25 (5) Acute encephalopathy: Plan: * EEG pending * Continue supportive care. Admission and Anticipated Discharge Date Admission Date: November 30, 2021 Subjective Called by hospitalist secondary to episode of paroxysmal atrial fibrillation with rapid ventricular response. Telemetry reviewed demonstrating PAF with RVR overnight from approximately 12:30 AM until 2:30 AM. Heart rate up to 120 bpm recorded with spontaneous conversion to sinus rhythm /sinus tachycardia.Chart reviewed, patient admitted with acute respiratory failure with hypoxia. History of congestive heart failure and recent hospitalization at [facility]. Diuresed nearly 13 L during that hospitalization. Creatinine elevated during current hospitalization due to diuretic therapy. Currently on hold. Pulmonary medicine consulted for evaluation of noncardiac pulmonary edema. Currently treated with broad-spectrum antibiotic therapy and corticosteroids. Review of Systems Review of Systems: All systems reviewed & are unremarkable except as noted in Subjective Physical Exam Constitutional: + ill appearing and + obese; no acute distress Respiratory: no respiratory distress and no retractions Auscultation: no crackles, no rhonchi and no wheezes Cardiovascular: Rate/Rhythm: regular rhythm and + tachycardic Heart Sounds: normal S1 and normal S2; no murmur Vessels: no JVD Extremities: no edema Gastrointestinal (Abdomen): Inspection/Auscultation: normal bowel sounds; abdomen not distended Neurologic: CN's II-XI intact bilaterally and moves all extremities Results & Data ([facility]) Vital Signs (Past 12 Hours) Vital Signs Temp Pulse Pulse Pulse Resp BP Pulse Ox 12/04/21 12:25 91 H 22 98 12/04/21 12:00 12/04/21 12:11 36.8 C 111 H 26 H 170/83 H 92 12/04/21 11:30 101 H 24 89 L 12/04/21 11:58 37.0 C 97 H 20 130/69 95 12/04/21 10:21 114 H 24 90 12/04/21 07:37 99 H 21 99 12/04/21 08:00 12/04/21 07:54 36.5 C 105 H 26 H 164/83 H 99 12/04/21 05:23 18 92 12/04/21 05:05 95 H 18 95 12/04/21 02:45 22 95 12/04/21 03:58 116 H 20 178/73 H 95 12/04/21 02:33 137 H 26 H 133/82 98 12/04/21 02:50 135 H 24 174/87 H 98 12/04/21 03:09 114 H 20 166/64 H 93 Pulse Ox O2 Del Method O2 Del Method O2 Flow Rate O2 Flow Rate FiO2 12/04/21 12:25 High Flow Nasal Cannula 40 90 12/04/21 12:00 92 High Flow Nasal Cannula 40 12/04/21 12:11 High Flow Nasal Cannula 40 60 12/04/21 11:30 High Flow Nasal Cannula 40 100 12/04/21 11:58 Room Air 12/04/21 10:21 60 12/04/21 07:37 70 12/04/21 08:00 BiPAP 5 60 12/04/21 07:54 BiPAP 12/04/21 05:23 High Flow Nasal Cannula 40 60 12/04/21 05:05 High Flow Nasal Cannula 70 12/04/21 02:45 High Flow Nasal Cannula 40 100 12/04/21 03:58 High Flow Nasal Cannula 40 90 12/04/21 02:33 High Flow Nasal Cannula, Non-rebreather 40 100 12/04/21 02:50 High Flow Nasal Cannula, Non-rebreather 12/04/21 03:09 High Flow Nasal Cannula 40 90 (1) Anemia Anemia type: unspecified type Qualified Code(s): D64.9 - Anemia, unspecified
[2021-12-04 18:56] LABS: Partial Thromboplastin Ratio 0.7; Partial Thromboplastin Time 20.5 Seconds (21.0-31.0)
[2021-12-04] MEDS ORDERED: HEPARIN SOD (PORCINE) 1000 UNIT/ML IV ONE (19:21)
--- NOTE | 2021-12-04 19:31 | Hospitalist Progress Note ---
Date of Service December 04, 2021 Assessment & Plan (1) Acute respiratory failure with hypoxia: Plan: - has history of CHF and was diuresed 13L at [facility] [place] last month - unclear if this presenation is all CHF related as CT chest with extensive opacities bilaterally with somewhat nodular appearance - hypoxic to 60-70s on RA in ED requiring 15L NRB - wean as tolerated - TTE - G1DD, hyperdynamic, EF 65-70% - Cardiology evaluated, appreciate recommendation. - concern for possible underlying inflammatory or other lung pathology given CT findings - CRP 14, ESR 67, PCT slightly elevated - rheum work up sent and pending - Pulm on board, plan to take him to ICU if with further worsening and possible bronchoscopy after intubation. - antibiotics for possible HAP or other chronic pulmonary infection - started on steroids by pulm - monitor response -Patient has been pulling his high flow nasal cannula oxygen on and off, likely will use one-to-one sitter if needed. (2) CHF (congestive heart failure): Plan: - TTE as above - Telemetry/PCU monitoring - Cardiology consulted, Lasix on hold due to STEFFI over CKD. - resume home meds for now Atrial fibrillation: Patient went into A. fib with heart rate up to 120s overnight 12/03-12/04, cardiology made aware, patient started on heparin drip and metoprolol, will continue to monitor, appreciate cardiology recommendation. (3) Acute hyperkalemia: Plan: - worsening renal function compared to prior admission - unclear etiology but CHF could be contributing -Patient on Veltassa -Resolved (4) Anemia: Plan: - unclear etiology - iron studies sent, ferritin elevated, iron level low. - b12, folate wnl - no signs of bleeding - monitor for now - transfuse for hgb <7 (5) Acute kidney injury superimposed on CKD: Plan: - in the setting of CHF, acute illness - unclear etiology at this time -, Creatinine gradually improving - monitor I/O - trend Cr (6) Altered mental status: Plan: - likely due to acute hypoxic respiratory failure vs other pathology/acute illness - patient is being treated for possible metabolic encephalopathy from infection vs hypoxic encephalopathy given hypoxic on presentation - agitated and delirious in the ED requiring chemical sedation as verbal redirection unsuccessful - CTH unremarkable - will monitor for resolution with above interventions - received olanzapine overnight for agitation -EEG 12/04 with no epileptiform abnormalities. (7) Hyponatremia: Plan: - in the setting of CHF, acute illness - will monitor for now - fluid restriction <1.5L for now - trend Na - resolved (8) BPH (benign prostatic hyperplasia): Plan: - continue home meds (9) HTN (hypertension): Plan: - BP stable - continue home meds as needed (10) HLD (hyperlipidemia): Plan: - reported statin allergy - continue fenofibrate Plan DVT ppx: heparin SC Code Status: Full Code Dispo: PCU/Telemetry Admission and Anticipated Discharge Date Admission Date: November 30, 2021 Subjective Patient seen and examined at bedside as a follow-up of acute respiratory failure with hypoxia, CHF, STEFFI over CKD, altered mental status. Patient was lying in bed, drowsy, on high flow nasal cannula oxygen, per RN patient has been taking off oxygen repeatedly but was compliant when was in the room, soft mittens ordered. Patient's updated at bedside. ROS n/a due to cognition status. Overnight patient had a fever, started on heparin drip, communicated with evaporator supervisor. Patient currently in sinus rhythm at bedside exam but tachycardic. Metoprolol added. Overnight patient had code purple as he became unresponsive and hypoxic on high flow, he was reported to have coughed up thick mucus few times. Physical Exam Physical Exam: GENERAL: drowsy, arousable, NAD, on HFNC 40L HEENT: No pallor, no icterus. Pupils equal, round and reactive to light. Oral mucosa moist. NECK: No JVD, no neck masses. HEART: S1 and S2 heard. Regular rate and rhythm. No murmur, no gallop. RESPIRATORY SYSTEM: Normal AP diameter. No accessory muscle use. No wheezing, b/l crackles. ABDOMEN: Soft, bowel sounds present, nontender, no distention. CENTRAL NERVOUS SYSTEM: No facial droop. Speech is clear. Obeys simple c ommands. Moves extremities. EXTREMITIES: No edema, no erythema seen. UC noted. Results & Data Results & Data ([facility]) Vital Signs (Past 12 Hours) Vital Signs Temp Pulse Pulse Resp BP Pulse Ox Pulse Ox 12/04/21 18:00 92 12/04/21 16:08 37.2 C 81 22 167/71 H 91 09/19/22 14:27 98 H 20 95 12/04/21 12:25 91 H 22 98 12/04/21 12:00 92 12/04/21 12:11 36.8 C 111 H 26 H 170/83 H 92 12/04/21 11:30 101 H 24 89 L 12/04/21 11:58 37.0 C 97 H 20 130/69 95 12/04/21 10:21 114 H 24 90 12/04/21 07:37 99 H 21 99 12/04/21 08:00 12/04/21 07:54 36.5 C 105 H 26 H 164/83 H 99 O2 Del Method O2 Del Method O2 Flow Rate O2 Flow Rate FiO2 12/04/21 18:00 High Flow Nasal Cannula 40 12/04/21 16:08 High Flow Nasal Cannula 40 90 12/04/21 14:27 High Flow Nasal Cannula 40 90 12/04/21 12:25 High Flow Nasal Cannula 40 90 12/04/21 12:00 High Flow Nasal Cannula 40 12/04/21 12:11 High Flow Nasal Cannula 40 60 12/04/21 11:30 High Flow Nasal Cannula 40 100 12/04/21 11:58 Room Air 12/04/21 10:21 60 12/04/21 07:37 70 12/04/21 08:00 BiPAP 5 60 12/04/21 07:54 BiPAP (1) Anemia Anemia type: unspecified type Qualified Code(s): D64.9 - Anemia, unspecified
[2021-12-04] MEDS: traZODone HCL 100 MG TAB PO SCH (20:23)
[2021-12-05 03:02] LABS: BUN Creatinine Ratio 47.6 (10-20); Calcium 9.7 mg/dl (8.5-10.1); Creatinine Clr Calc Pharmacy 34.8 ml/min; Est GFR (African American) 38.5 ml/min; Est GFR (Non-African American) 33.2 ml/min; Magnesium 2.3 mg/dl (1.7-2.4); Phosphorus 2.8 mg/dl (2.5-4.9); Potassium 3.8 mmol/L (3.5-5.1)
[2021-12-05 03:12] LABS: Partial Thromboplastin Ratio 2.4
[2021-12-05] MEDS: HEPARIN SODIUM/DEXTROSE 25,000 UNITS/500 ML BAG IV SCH (03:14)
[2021-12-05 03:18] LABS: Partial Thromboplastin Time 65.9 Seconds (21.0-31.0)
[2021-12-05 03:20] LABS: Hematocrit (blood only) 20.8 % (40.1-51.0); Hemoglobin 6.5 g/dl (14.0-18.0); Mean Corpuscular Hemoglobin 28.4 pg (25.0-34.0); Mean Corpuscular Hgb Conc 31.3 g/dL (32.0-36.0); Mean Corpuscular Volume 90.8 fL (80.0-100.0); Mean Platelet Volume 10.3 fL (9.4-12.4); Platelet Count 383 K/uL (130-400); RDW Coefficient of Variation 16.9 % (11.5-14.5); RDW Standard Deviation 55.8 fL (36.4-46.3); Red Blood Count 2.29 M/uL (4.63-6.08); White Blood Count 13.01 K/ul (4.8-10.8)
[2021-12-05 04:25] LABS: Hematocrit (blood only) 24.2 % (40.1-51.0); Hemoglobin 7.4 g/dl (14.0-18.0)
[2021-12-05] MEDS: DOXYCYCLINE HYCLATE 100 MG in DEXTROSE 5% 100 ML IV SCH ×2 (06:35→20:08)
[2021-12-05] MEDS: CEFEPIME 2,000 MG in SYRINGE 0 ML IV SCH ×2 (06:35→20:09)
[2021-12-05] MEDS: amLODIPine BESYLATE 5 MG TAB PO SCH (08:12)
[2021-12-05] MEDS: ASPIRIN 81 MG ECTAB PO SCH (08:12)
[2021-12-05] MEDS: FENOFIBRATE NANOCRYSTALLIZED 145 MG TABLET PO SCH (08:13)
[2021-12-05] MEDS: CHOLECALCIFEROL 1,000 UNITS 25 MCG TAB PO SCH (08:13)
[2021-12-05] MEDS: methylPREDNISolone 40 MG in SYRINGE 0 ML IV SCH ×2 (08:15→20:10)
[2021-12-05] MEDS: GABAPENTIN 400 MG CAP PO SCH ×2 (08:15→20:16)
[2021-12-05] MEDS: METOPROLOL TARTRATE 25 MG TAB PO SCH ×2 (08:16→20:17)
[2021-12-05] MEDS: MIRABEGRON ER 25 MG TAB PO SCH (08:17)
[2021-12-05] MEDS: TAMSULOSIN HCL 0.4 MG CAP PO SCH (08:18)
[2021-12-05] MEDS: MULTIVITAMIN TAB PO SCH (08:18)
--- NOTE | 2021-12-05 10:30 | Pulmonology Progress Note ---
Date of Service December 05, 2021 Assessment & Plan (1) Acute respiratory failure with hypoxia: (2) Pneumonia: Laterality: right Lung location: unspecified part of lung Pneumonia type: due to unspecified organism Qualified Code(s): J18.9 - Pneumonia, unspecified organism Plan CT chest 11/30/2021 personally reviewed: Diffuse patchy alveolar opacities appreciated bilaterally more on the right side Bilateral pleural effusions small on the right Cardiomegaly No mediastinal lymphadenopathy ABG 12/04/2021: 7.46/36/118 on 5 L -- Acute hypoxic respiratory failure Multifactorial Patient does have diffuse patchy alveolar opacities which are even appreciated on the CT chest which was done 11/14/2021 Underlying CHF is also playing its role Patient was diuresed 16L at the [facility] and sputum culture was negative for any growth as per previous records Differential includes autoimmune process, DAH, infection I do think patient has underlying ILD like picture on top of diastolic CHF Continue with steroids for the time being Procalcitonin 0.71, CRP 14.02 Covid-19 PCR negative, influenza A/B negative Respiratory bio fire negative Absolute eosinophil count 610 on 12/02/2021 Patient does have lymphopenia Continue with diuretics O2 supplementation to keep O2 saturation between 88-92% Follow-up autoimmune work-up Negative for rheumatoid factor and anti-Pam 1 --Metabolic encephalopathy Patient is not hypercapnic Did this within normal limit Patient's BUN is 90 which might be playing a role in his encephalopathy Plan: In/out: -3.9 L since coming to the hospital Continue with steroids, f/u rest of autoimmune work up Continue with O2 supplementation to keep O2 saturation between 90% Patient's son was also in the room during examination. I did explain to patient's son as well as the current condition of patient which is severe to critical given the oxygen requirement Underlying encephalopathy is not helping as well. No plan for bronchoscopy right now. All question and queries of the patient's and son where answered in depth If there is any worsening in his respiratory status and intubation would be pursued. Case discussed with Dr. Caballero Patient's Sudha [phone] was called and current condition and prognosis. Okay to intubate the patient if need be as per patient's Please note the above document was generated using voice recognition software. It may contain grammatical, syntax or spelling errors.Any formal questions or concerns about the content, text or information contained within the body of this dictation should be directly addressed to the provider for clarification. Admission and Anticipated Discharge Date Admission Date: November 30, 2021 Subjective Seen examined at bedside. No acute distress Patient still having bouts of delirium where he pulls oxygen off. Patient pulled oxygen off 3 times while I was in the room with him along with patient's son and . Denies any headache, denies any chest pain. Does complain of pressure from the high flow. He was saturating 95-96% on 40 L, 90% FiO2. I was able to gradually go down to 70% but he then started to desaturate to 88- 89%. I went up on FiO2 75% he was able to maintain his saturation around 91-92 at that time. He denies any headache, no chest pain No belly pain. No nausea or vomiting Review of Systems Review of Systems: All systems reviewed & are unremarkable except as noted in Subjective Physical Exam Physical Exam: Constitutional: No acute distress HEENT: EOMI, PERRLA Respiratory system: Decreased air entry bilaterally, no wheeze, no rhonchi, positive crackles appreciated bilateral CVS: S1-S2 positive, no murmurs or gallops, tachycardia Abdomen: Soft, nontender, nondistended, positive bowel sounds x4, obese Extremities: +2 pulses bilaterally radialis/ dorsalis pedis, no cyanosis, no edema Neuro: Awake alert oriented to self and place Psych: Normal mood and affect G/U: Positive Galan Skin: no rashes, warm and dry Lymphatic: no cervical or axillary lymphadenopathy Results & Data Results & Data ([facility]) Vital Signs (Past 12 Hours) Vital Signs Temp Pulse Pulse Pulse Resp BP Pulse Ox 12/05/21 07:56 36.5 C 107 H 17 136/60 91 12/05/21 07:23 115 H 24 93 12/05/21 03:55 109 H 22 91 12/04/21 22:41 89 12/05/21 02:53 36.9 C 109 H 20 160/74 H 100 12/04/21 22:40 91 H 23 95 12/04/21 22:31 36.8 C 92 H 16 153/73 H 100 O2 Del Method O2 Flow Rate FiO2 12/05/21 07:56 Nasal Cannula 95 12/05/21 07:23 High Flow Nasal Cannula 40 90 12/05/21 03:55 High Flow Nasal Cannula 40 90 12/04/21 22:41 12/05/21 02:53 High Flow Nasal Cannula 40 90 12/04/21 22:40 60 12/04/21 22:31 High Flow Nasal Cannula 40 90 Laboratory Results 12/05/21 04:11 12/05/21 02:32 PG Care Time/CCT Total # of Minutes Spent Total Time Spent with Patient: Total time spent is greater than 50% in coordination of care (as documented) at patient's floor/unit and/or counseling patient: Coding [place] [address] Subseq Hosp Care Lvl 3 Patient Type Established Diagnoses Acute respiratory failure with hypoxia J96.01 Pneumonia J18.9 Laterality: right Lung location: unspecified part of lung Pneumonia type: due to unspecified organism
--- NOTE | 2021-12-05 10:41 | Cardiology Progress Note ---
Date of Service December 05, 2021 Assessment & Plan (1) Paroxysmal atrial fibrillation with RVR: Plan: S/P spontaneous conversion back to sinus at 0214 on 12/04/2021. Continue low-dose beta-lissett therapy. Hold IV heparin given drop in hemoglobin, without overt signs/symptoms of acute blood loss. (2) Acute respiratory failure with hypoxia: Plan: No overt physical examination evidence of acute decompensated diastolic congestive heart failure. Continue to hold diuretic therapy. Further evaluation and treatment as per Pulmonary Medicine. (3) Acute kidney injury superimposed on CKD: Plan: Continue to hold diuretic therapy as above. (4) Anemia: Plan: Hold heparin. (5) Dyslipidemia: Plan: Fenofibrate prescribed by PCP in 2014 for dyslipidemia after poor tolerance to statins (simvastatin, atorvastatin, rosuvastatin, and pravastatin) observed. No significant hypertriglyceridemia noted on outpatient chart review. Given the patient's significant renal dysfunction and postmarketing reports of interstitial pulmonary disease, recommend discontinuation of fenofibrate. Ezetimibe (Zetia) 10 mg/day may be a future option. Admission and Anticipated Discharge Date Admission Date: November 30, 2021 Supervising Physician Co-Signing Physician Notes Patient seen examined the bedside. No changes overnight. Remains on high flow oxygen. Brief salvos of atrial fibrillation recorded this morning. PE: Hypoxic requiring high flow oxygen otherwise vital signs stable. Gen:Ill, NAD. Heart: Regular rhythm, borderline tachycardic, no murmur. Lungs: Diminished breath sounds at the bases bilateral. Extremities: No edema. A/P: Agree with above PA-C history, physical exam, assessment and plan. Continue low-dose beta-lissett therapy and hold IV heparin today due to drop in hemoglobin. Monitor telemetry. Subjective Patient seen and examined. Chart (inpatient and the [facility] EMR), medications, and telemetry reviewed. Family and bedside. Requiring high flow oxygen supplementation. Chronic back pain. Tired. "I want to go home." He has made peace with his maker. No chest pain. No palpitations. No PND. No peripheral edema. No hemoptysis, melena, hematochezia, or hematuria. Telemetry: Currently sinus in the 70's. Sinus tachycardiac observed overnight. No further atrial fibrillation since spontaneous conversion on 12/04/2021 at 0214. December 01, 2021 TTE Interpretation Summary ([facility], Dr. Schmitt): Normal LV wall thickness. No regional WMA's. Hyperdynamic LV systolic function, EF 65-70%. Grade I diastolic dysfunction. Normal RV size and function. No significant valvular pathology. Review of Systems Review of Systems: All systems reviewed & are unremarkable except as noted in Subjective Physical Exam Physical Exam: General: A&O to person and place. HENT: Normocephalic. Atraumatic. Eyes: PER. Conjunctiva pink, sclera pale. No overt JVD. Heart: Regular at 78 bpm. No murmur appreciated. No rub. Lungs: Faint left sided rales. No wheeze. No rhonchi. Abdomen: +BS. Soft. Nontender. No masses or organomegaly. + Galan cathetr Extremities: No clubbing. No cyanosis. No lower extremity peripheral edema. Limited neurological examination is without focal deficits. Results & Data ([facility]) Vital Signs (Past 12 Hours) Vital Signs Temp Pulse Pulse Pulse Resp BP Pulse Ox 12/05/21 08:00 12/05/21 08:00 12/05/21 07:56 36.5 C 107 H 17 136/60 91 12/05/21 07:23 115 H 24 93 12/05/21 03:55 109 H 22 91 12/04/21 22:41 89 12/05/21 02:53 36.9 C 109 H 20 160/74 H 100 12/04/21 22:40 91 H 23 95 O2 Del Method O2 Del Method O2 Flow Rate FiO2 12/05/21 08:00 Oxyhood 40 75 12/05/21 08:00 High Flow Nasal Cannula 12/05/21 07:56 Nasal Cannula 95 12/05/21 07:23 High Flow Nasal Cannula 40 90 12/05/21 03:55 High Flow Nasal Cannula 40 90 12/04/21 22:41 12/05/21 02:53 High Flow Nasal Cannula 40 90 12/04/21 22:40 60 Laboratory Results Cardiac Enzymes 12/04/21 12/04/21 12/04/21 Range/Units 09:28 18:02 23:47 Troponin I High Sens 45.5 H 48.6 H 47.3 H (0-20) pg/ml Coagulation 12/04/21 12/05/21 Range/Units 18:02 02:32 APTT 20.5 L 65.9 H* (21.0-31.0) Seconds CBC 12/05/21 12/05/21 Range/Units 02:32 04:11 WBC 13.01 H (4.8-10.8) K/ul RBC 2.29 L (4.63-6.08) M/uL Hgb 6.5 L* 7.4 L (14.0-18.0) g/dl Hct 20.8 L* 24.2 L (40.1-51.0) % Plt Count 383 (130-400) K/uL Comprehensive Metabolic Panel 12/05/21 Range/Units 02:32 Sodium 144 (136-145) mmol/L Potassium 3.8 (3.5-5.1) mmol/L Chloride 111 H (98-107) mmol/L Carbon Dioxide 25 (21-32) mmol/L BUN 90 H (6-23) mg/dl Creatinine 1.89 H (0.6-1.4) mg/dl Glucose 169 H (70-99(Fasting)) mg/dl Calcium 9.7 (8.5-10.1) mg/dl Intake and Output 12/04/21 12/05/21 12/05/21 22:59 06:59 14:59 Intake Total 270.3 / 1031.367 196.650 / 1031.367 110 / 110 Output Total 57 / 1574 500 / 1575 Balance -304.7 / -543.633 -303.350 / -543.633 110 / 110 Intake: IV 270.3 / 981.367 196.650 / 981.367 110 / 110 Doxycycline Hyclate 100 mg In 110 / 220 110 / 110 Dextrose 5% 100 ml @ 50 mls/hr IV Q12H [facility] Rx#:[id number] Heparin Sodium/Dextrose 25,000 160.3 / 507.367 196.650 / 507.367 units In 500 ml @ 1,300 UNITS/ HR 26 mls/hr IV .[id number] [facility] Rx #:[id number] Output: Urine Amount (Catheter) 57 / 1575 500 / 1575 Galan/Indwelling 575 / 157 500 / 1575 Other: Other Intake Source NPO Weight 87.8 kg Weight Measurement Method Built in [facility] (1) Anemia Anemia type: unspecified type Qualified Code(s): D64.9 - Anemia, unspecified
[2021-12-05] MEDS ORDERED: SODIUM CHLORIDE 0.45 % 1,000 ML IV SCH (12:15)
[2021-12-05] MEDS: PATIROMER CALCIUM SORBITEX 8.4 GM PACK PO SCH (12:19)
[2021-12-05] MEDS: FERROUS SULFATE 325 MG TAB PO SCH ×2 (12:19→20:40)
[2021-12-05] MEDS ORDERED: SODIUM CHLORIDE 0.9% 250 ML IV PRN (12:36)
--- NOTE | 2021-12-05 14:09 | Hospitalist Progress Note ---
Date of Service December 05, 2021 Assessment & Plan (1) Acute encephalopathy: (2) Acute respiratory failure with hypoxia: (3) Paroxysmal atrial fibrillation with RVR: (4) Acute on chronic anemia: Plan 76-year-old male with PMH of pulmonary nodule, HLD, HTN, BPH, CKD stage IIIb, a nemia due to stage III CKD, moderate episode of recurrent major depressive disorder, lumbar spinal stenosis, cervical spinal stenosis, statin intolerance, on chronic low-dose systemic steroid for degenerative joint disease [per records] presented to hospital 11/30 from physical therapy because he appeared short of breath and ill-appearing. Of note patient was recently discharged from [facility] after transfer for acute respiratory failure requiring intubation and concern for cervical injury [found to have C1 fracture] due to recurrent falls at home. He was aggressively diuresed, intubated, extubated on 11/16/2021 and was to follow-up with neurosurgery as an outpatient on 12/20/2021. Patient was treated for concern of hospital-acquired pneumonia with course of cefepime and doxycycline. Patient was recommended for inpatient rehab but went home with home health. He is being managed for the following: Acute respiratory failure with hypoxia: Etiology not very clear at the moment Patient presented with shortness of breath and ill-appearing, history of CHF and aggressive diuresis [13 L at [facility] last month]. Patient was hypoxic to 60s to 70s on room air in ED requiring 15 L nonrebreather. Unclear if this presentation is all CHF related as admitting CT chest with extensive opacities bilaterally with somewhat nodular appearance. Admitting BNP was in fact at 347, improved from 1319 in October. 12/01 TTE: EF 65 to 70%, grade 1 diastolic dysfunction, right ventricular normal size and function. Normal left ventricular wall thickness. CRP elevated at 14.02, ESR 67, Pro-Olivier elevated at 0.71 at presentation 11/30 respiratory panel negative. 11/30 urine toxicology screen positive for opiates/codeine/morphine/hydromorphone [OP chart review, patient is prescribed morphine/trazodone] Cardiology evaluated, continue to hold diuretic therapy. Patient appears euvolemic to dry on exam. Pulmonology on board, likely inflammatory versus other lung pathology, rheumatological work-up 12/01 sent and pending --RF negative/Pam 1 antibody negative/rest are pending Patient still requiring high flow oxygen, patient has been taking off his oxygen on and off but not overtly combative, RN made aware that we can utilize one-to-one if he is consistently taking his oxygen off. Patient still drowsy and lethargic at bedside exam, oriented on and off, coughing up thick mucus. Plan to take him to ICU if with further worsening and possible bronchoscopy after intubation. Patient is on antibiotic for HAP or other chronic pulmonary infection and is also on steroid per pulmonology service Atrial fibrillation: Patient went into A. fib with heart rate up to 120s overnight 12/03-12/04, status post a spontaneous conversion back to sinus at 2:14 AM on 12/04/2021. Cardiology evaluated, holding heparin given hemoglobin drop overnight 12/04-12/05. Metoprolol was started 12/04. Will continue to monitor, appreciate cardiology recommendation. Acute on chronic anemia: Hb from OP chart review: in 13s in 2008, in 11s in [id number]; in 10s in 2019 - 2020; in 9s early 2021 then in 7s to 8s by mid 2021; he needed transfusion while in [facility] in last October. Hb 7.2 at this presentation, has been 7-8 mostly. Family not aware of any blood related disorders w/ the patient. B12/folate level wnl, Ferriting elevated >500; iron level low; Likely Anemia of CKD Stage 3b. 12/05: Haptoglobin pending, LDH 230, retics and maria t pending. Hb dropped to 6.5 overnight of 12/04-12/05, no concern of bleeding per rectum or blood in stool per RN, had BM on 12/04 per RN. Repeat Hb 7.4. FOBT has been sent. PPI IV, BUN elevated (will give 1 L IVF)/if FOBT +ve consider GI consult. Pt looks pale, transfusing 1 unit PRBC. Repeat Hb in the day was 6.3, pt scheduled to get his first 1 unit prbc. Hb at night and in AM. STEFFI over chronic kidney disease stage IIIb: OP Chart review for BUN/Cr: Cr 1.5 to 2.1 since 2015, mostly in 1.8s; BUN in 30s to high 40s in the same time frame. Admitting creatinine of 2.18, initially up trended, lately in 1.8s Acute hyperkalemia: Admitting potassium of 6.2, likely in the background of worsening renal function, patient on Veltassa, has been WNL. Hyponatremia: Likely in the setting of CHF/acute illness/poor intake. Resolved. CHF: History of, TTE as above, continue with telemetry monitoring, cardiology evaluated, Lasix on hold. Continue with home meds. Altered mental status/likely acute metabolic encephalopathy: On the background of acute hypoxic respiratory failure versus other acute illness as above, expect to improve with improvement in the above conditions. Patient was agitated and delirious in the ED requiring chemical sedation as per verbal redirection was unsuccessful, as needed occasional p.o. Zyprexa for agitation. Will monitor for resolution with above interventions. EEG 12/04 with no epileptiform abnormalities. Other chronic medical conditions: BPH/HTN/HLD--> statin intolerance, continue home meds as appropriate. DVT prophylaxis: SCDs, Re: bleeding Code Status: Full Code, patient's requested to bring patient's living well. Dispo: PCU/Telemetry, likely to ICU care if with worsening. Discussed with automotive welder. Guarded prognosis. Palliative care has been consulted. Patient's was updated at bedside on 12/04 and patient's /patient's son Ron was updated at bedside on 12/05. Answered all their questions. Admission and Anticipated Discharge Date Admission Date: November 30, 2021 Subjective Patient seen and examined at bedside as a follow-up of acute respiratory failure with hypoxia, CHF, STEFFI over CKD, altered mental status. Patient was lying in bed, drowsy, on high flow nasal cannula oxygen, per RN patient has been taking off oxygen repeatedly. Patient's and son updated at bedside. ROS n/a due to cognition status. Overnight Pt had drop in Hb, heparin drip was held, blood consent obtained from family and transfusing 1 unit as patient looks pale. Patient currently in sinus rhythm per telemetry review. Physical Exam Physical Exam: GENERAL: drowsy, arousable, NAD, on HFNC 40L HEENT: No pallor, no icterus. Pupils equal, round and reactive to light. Oral mucosa moist. NECK: No JVD, no neck masses. HEART: S1 and S2 heard. Regular rate and rhythm. No murmur, no gallop. RESPIRATORY SYSTEM: Normal AP diameter. No accessory muscle use. No wheezing, b/b crackles. ABDOMEN: Soft, bowel sounds present, nontender, no distention. CENTRAL NERVOUS SYSTEM: No facial droop. Speech is clear. Obeys simple commands. Moves extremities. EXTREMITIES: No edema, no erythema seen. UC noted. Results & Data Results & Data ([facility]) Vital Signs (Past 12 Hours) Vital Signs Temp Pulse Pulse Resp BP Pulse Ox O2 Del Method 12/05/21 13:09 108 H 22 92 High Flow Nasal Cannula 12/05/21 11:34 37.0 C 97 H 16 152/73 H 97 High Flow Nasal Cannula 12/05/21 11:10 96 H 24 95 High Flow Nasal Cannula 12/05/21 08:00 Oxyhood 12/05/21 08:00 12/05/21 07:56 36.5 C 107 H 17 136/60 91 Nasal Cannula 12/05/21 07:23 115 H 24 93 High Flow Nasal Cannula 12/05/21 03:55 109 H 22 91 High Flow Nasal Cannula 12/05/21 02:53 36.9 C 109 H 20 160/74 H 100 High Flow Nasal Cannula O2 Del Method O2 Flow Rate FiO2 12/05/21 13:09 40 80 12/05/21 11:34 12/05/21 11:10 40 85 12/05/21 08:00 40 75 12/05/21 08:00 High Flow Nasal Cannula 12/05/21 07:56 95 12/05/21 07:23 40 90 12/05/21 03:55 40 90 12/05/21 02:53 40 90
[2021-12-05 14:26] LABS: Hematocrit (blood only) 20.3 % (40.1-51.0); Hemoglobin 6.3 g/dl (14.0-18.0); Reticulocyte % 2.7 % (0.5-2.0); Reticulocytes # 0.06 10^6/uL (0.02-0.10)
[2021-12-05] MEDS: PANTOprazole 40 MG in SYRINGE 0 ML IV SCH ×2 (14:30→20:11)
[2021-12-05] MEDS: traZODone HCL 100 MG TAB PO SCH (20:17)
[2021-12-05 22:01] LABS: Hematocrit (blood only) 23.9 % (40.1-51.0); Hemoglobin 7.6 g/dl (14.0-18.0)
[2021-12-06] MEDS: CEFEPIME 2,000 MG in SYRINGE 0 ML IV SCH ×2 (06:08→18:23)
[2021-12-06] MEDS: DOXYCYCLINE HYCLATE 100 MG in DEXTROSE 5% 100 ML IV SCH ×2 (06:08→18:23)
[2021-12-06 07:31] LABS: Creatinine Clr Calc Pharmacy 34.2 ml/min; Est GFR (African American) 37.8 ml/min; Est GFR (Non-African American) 32.6 ml/min; Partial Thromboplastin Ratio 0.9; Partial Thromboplastin Time 25.4 Seconds (21.0-31.0)
[2021-12-06] MEDS: HEPARIN SODIUM/DEXTROSE 25,000 UNITS/500 ML BAG IV SCH (08:15)
[2021-12-06 08:18] LABS: Hematocrit (blood only) 22.6 % (40.1-51.0); Hemoglobin 7.2 g/dl (14.0-18.0); Mean Corpuscular Hemoglobin 29.3 pg (25.0-34.0); Mean Corpuscular Hgb Conc 31.9 g/dL (32.0-36.0); Mean Corpuscular Volume 91.9 fL (80.0-100.0); Mean Platelet Volume 11.1 fL (9.4-12.4); Nucleated RBC # (auto) 0.02 K/uL (0-0); Nucleated RBC % (auto) 0.2 %; Platelet Count 319 K/uL (130-400); RDW Coefficient of Variation 16.7 % (11.5-14.5); RDW Standard Deviation 56.3 fL (36.4-46.3); Red Blood Count 2.46 M/uL (4.63-6.08); White Blood Count 12.56 K/ul (4.8-10.8)
[2021-12-06] MEDS: PANTOprazole 40 MG in SYRINGE 0 ML IV SCH ×2 (08:22→20:20)
[2021-12-06] MEDS: TAMSULOSIN HCL 0.4 MG CAP PO SCH (08:22)
[2021-12-06] MEDS: MIRABEGRON ER 25 MG TAB PO SCH (08:22)
[2021-12-06] MEDS: MULTIVITAMIN TAB PO SCH (08:22)
[2021-12-06] MEDS: METOPROLOL TARTRATE 25 MG TAB PO SCH ×3 (08:22→20:20)
[2021-12-06] MEDS: ASPIRIN 81 MG ECTAB PO SCH (08:23)
[2021-12-06] MEDS: FERROUS SULFATE 325 MG TAB PO SCH ×2 (08:23→20:20)
[2021-12-06] MEDS: CHOLECALCIFEROL 1,000 UNITS 25 MCG TAB PO SCH (08:23)
[2021-12-06] MEDS: amLODIPine BESYLATE 5 MG TAB PO SCH (08:23)
[2021-12-06] MEDS: methylPREDNISolone 40 MG in SYRINGE 0 ML IV SCH ×2 (08:23→20:20)
[2021-12-06] MEDS: GABAPENTIN 400 MG CAP PO SCH ×2 (08:23→20:20)
--- NOTE | 2021-12-06 09:19 | Cardiology Progress Note ---
Date of Service December 06, 2021 Assessment & Plan (1) Paroxysmal atrial fibrillation with RVR: Plan: Check EKG, basic metabolic panel, and magnesium Increase metoprolol tartrate to 25 mg twice a day. IV heparin on hold due to anemia, ? blood loss. (2) Acute respiratory failure with hypoxia: Plan: No overt examination findings of acute congestive heart failure. Continue to hold diuretic therapy. Further evaluation and treatment as per Pulmonary Medicine. (3) Acute kidney injury superimposed on CKD: Plan: Continue to hold diuretic therapy as above. (4) Anemia: Plan: Hgb 7.2 g/dL this AM. Continue to hold IV heparin/anticoagulation. (5) Dyslipidemia: Plan: Fenofibrate prescribed by PCP in 2014 for dyslipidemia after poor tolerance to statins (simvastatin, atorvastatin, rosuvastatin, and pravastatin) observed. No significant hypertriglyceridemia noted on outpatient chart review. Given the patient's significant renal dysfunction and postmarketing reports of interstitial pulmonary disease, recommend discontinuation of fenofibrate. Ezetimibe (Zetia) 10 mg/day may be a future option. Recommend Palliative Care/Hospice evaluation. Admission and Anticipated Discharge Date Admission Date: November 30, 2021 Supervising Physician Co-Signing Physician Notes Patient seen examined the bedside. Patient converted back to atrial fibrillation with borderline rapid ventricular response at 6 AM. Denies palpit ations. Remains on high flow oxygen. Heparin on hold due to anemia and possible blood loss. PE: Hypoxic requiring high flow oxygen otherwise vital signs stable. Gen:Ill, NAD. Heart: Regular rhythm, borderline tachycardic, no murmur. Lungs: Diminished breath sounds at the bases bilateral. Extremities: No edema. A/P: Agree with above PA-C history, physical exam, assessment and plan. Increase metoprolol to 25 mg twice daily. Consider restart heparin pending ongoing evaluation of anemia and serial H&H assessment. Monitor telemetry. Subjective Patient seen and examined. Chart, medications, telemetry reviewed. Family at bedside. States "I'm tired. I had enough." Chronic back pain. No palpitations. chest pain. No peripheral edema. No melena, hematochezia, or hematuria. Telemetry: Appears to have lapsed back in to atrial fibrillation with a mildly elevated ventricular response at 06:17 this AM. EKG requested. Review of Systems Review of Systems: All systems reviewed & are unremarkable except as noted in Subjective Physical Exam Physical Exam: General: Requiring high flow oxygen. A&O to person and place. HENT: Normocephalic. Atraumatic. Eyes: PER. Conjunctiva pink, sclera pale. No overt JVD. Heart: Irregularly irregular at 100 bpm. No murmur appreciated. No rub. Lungs: Clear anteriorly. No wheeze. Abdomen: +BS. Soft. Nontender. No masses or organomegaly. + Galan catheter Extremities: No lower extremity peripheral edema. Limited neurological examination is without focal deficits. Results & Data ([facility]) Vital Signs (Past 12 Hours) Vital Signs Temp Pulse Pulse Resp BP Pulse Ox O2 Del Method 12/06/21 08:01 157/68 H 12/06/21 08:01 95 H 27 H 90 12/06/21 08:00 103 H 19 91 12/06/21 07:12 152/77 H 12/06/21 07:12 103 H 22 86 L 12/06/21 07:00 104 H 22 88 L 12/06/21 06:00 94 H 21 93 12/06/21 06:00 171/72 H 12/06/21 07:21 101 H 18 90 High Flow Nasal Cannula 12/06/21 04:10 102 H 20 93 High Flow Nasal Cannula 12/06/21 05:26 92 H 36 H 96 12/06/21 05:26 172/72 H 12/06/21 05:20 93 H 37 H 96 12/06/21 05:10 99 H 24 93 12/06/21 05:00 100 H 28 H 94 12/06/21 04:50 97 H 18 96 12/06/21 04:40 103 H 32 H 93 12/06/21 04:30 98 H 19 97 12/06/21 04:20 98 H 25 H 91 12/06/21 04:10 96 H 24 92 12/06/21 04:01 153/65 H 12/06/21 04:01 99 H 15 95 12/06/21 04:00 99 H 30 H 12/06/21 03:50 103 H 26 H 90 12/06/21 03:40 95 H 17 90 12/06/21 03:30 101 H 19 93 12/06/21 03:20 99 H 22 93 12/06/21 03:10 102 H 40 H 91 12/06/21 03:01 100 H 34 H 94 12/06/21 03:01 168/62 H 12/06/21 03:00 101 H 29 H 92 12/06/21 02:50 102 H 25 H 91 12/06/21 02:40 93 H 43 H 94 12/06/21 02:30 85 31 H 93 12/06/21 02:20 85 33 H 93 12/06/21 02:10 86 27 H 94 12/06/21 02:00 88 36 H 93 12/06/21 02:00 131/60 12/06/21 01:50 88 34 H 94 12/06/21 01:40 99 H 45 H 93 12/06/21 01:30 93 H 37 H 94 12/06/21 01:20 91 H 33 H 95 12/06/21 01:10 89 26 H 95 12/06/21 01:00 88 20 95 12/06/21 01:00 146/65 H 12/06/21 00:50 86 20 95 12/06/21 00:40 89 30 H 96 12/06/21 00:30 93 H 22 96 12/06/21 00:20 99 H 29 H 96 12/06/21 00:10 97 H 20 94 12/06/21 00:00 96 H 21 97 12/06/21 00:00 159/82 H 12/05/21 23:50 96 H 34 H 98 12/05/21 23:40 96 H 25 H 96 12/05/21 23:30 95 H 23 96 12/05/21 23:20 96 H 17 96 12/05/21 23:10 98 H 22 94 12/05/21 23:00 102 H 19 91 12/05/21 23:00 147/92 H 12/05/21 22:50 105 H 25 H 87 L 12/06/21 05:30 36.8 C 12/06/21 02:27 69 12/05/21 23:40 101 H 18 93 High Flow Nasal Cannula 12/05/21 22:00 104 H 25 H 85 L 12/05/21 22:00 151/126 H 12/05/21 21:50 104 H 21 94 12/05/21 21:40 108 H 28 H 88 L 12/05/21 21:30 97 H 22 94 12/05/21 21:20 93 H 22 94 O2 Flow Rate FiO2 12/06/21 08:01 12/06/21 08:01 12/06/21 08:00 12/06/21 07:12 12/06/21 07:12 12/06/21 07:00 12/06/21 06:00 12/06/21 06:00 12/06/21 07:21 40 85 12/06/21 04:10 40 85 12/06/21 05:26 12/06/21 05:26 12/06/21 05:20 12/06/21 05:10 12/06/21 05:00 12/06/21 04:50 12/06/21 04:40 12/06/21 04:30 12/06/21 04:20 12/06/21 04:10 12/06/21 04:01 12/06/21 04:01 12/06/21 04:00 12/06/21 03:50 12/06/21 03:40 12/06/21 03:30 12/06/21 03:20 12/06/21 03:10 12/06/21 03:01 12/06/21 03:01 12/06/21 03:00 12/06/21 02:50 12/06/21 02:40 12/06/21 02:30 12/06/21 02:20 12/06/21 02:10 12/06/21 02:00 12/06/21 02:00 12/06/21 01:50 12/06/21 01:40 12/06/21 01:30 12/06/21 01:20 12/06/21 01:10 12/06/21 01:00 12/06/21 01:00 12/06/21 00:50 12/06/21 00:40 12/06/21 00:30 12/06/21 00:20 12/06/21 00:10 12/06/21 00:00 12/06/21 00:00 12/05/21 23:50 12/05/21 23:40 12/05/21 23:30 12/05/21 23:20 12/05/21 23:10 12/05/21 23:00 12/05/21 23:00 12/05/21 22:50 12/06/21 05:30 12/06/21 02:27 12/05/21 23:40 40 85 12/05/21 22:00 12/05/21 22:00 12/05/21 21:50 12/05/21 21:40 12/05/21 21:30 12/05/21 21:20 Laboratory Results Cardiac Enzymes 12/05/21 Range/Units 12:22 Lactate Dehydrogenase 230 (86-244) U/L Coagulation 12/06/21 Range/Units 07:00 APTT 25.4 (21.0-31.0) Seconds CBC 12/05/21 12/05/21 12/06/21 Range/Units 13:54 21:54 07:02 WBC 12.56 H (4.8-10.8) K/ul RBC 2.46 L (4.63-6.08) M/uL Hgb 6.3 L* 7.6 L 7.2 L (14.0-18.0) g/dl Hct 20.3 L* 23.9 L 22.6 L (40.1-51.0) % Plt Count 319 (130-400) K/uL Comprehensive Metabolic Panel 12/06/21 Range/Units 07:00 Creatinine 1.92 H (0.6-1.4) mg/dl Intake and Output 12/05/21 12/06/21 12/06/21 22:59 06:59 14:59 Intake Total 420 / 1530 1000 / 1530 110 / 110 Output Total 1300 / 1700 Balance 420 / -170 -300 / -170 110 / 110 Intake: IV 110 / 1220 1000 / 1220 110 / 110 Doxycycline Hyclate 100 mg In 110 / 220 110 / 110 Dextrose 5% 100 ml @ 50 mls/hr IV Q12H [facility] Rx#:[id number] Sodium Chloride 0.45 % 1,000 ml 1000 / 1000 @ 125 mls/hr IV .Q8H [facility] Rx#: [id number] Intake (Blood Product) Amt 310 / 310 Packed Cells, Leukoreduced 310 / 310 Unit [id number] Output: Urine Amount (Catheter) 1300 / 1700 Galan/Indwelling 1300 / 1700 Other: Other Intake Source NPO (1) Anemia Anemia type: unspecified type Qualified Code(s): D64.9 - Anemia, unspecified
[2021-12-06 10:22] LABS: BUN Creatinine Ratio 50.5 (10-20); Calcium 9.8 mg/dl (8.5-10.1); Creatinine Clr Calc Pharmacy 32.5 ml/min; Est GFR (African American) 35.6 ml/min; Est GFR (Non-African American) 30.7 ml/min; Magnesium 2.3 mg/dl (1.7-2.4); Potassium 4.4 mmol/L (3.5-5.1)
--- NOTE | 2021-12-06 10:46 | XRay Report ---
SINGLE VIEW CHEST CLINICAL HISTORY: Hypoxia. FINDINGS: An AP, portable, upright chest radiograph is compared to study dated 12/04/2021 and correlat ed with chest CT dated 11/30/2021. The heart is enlarged. There is pulmonary vascular congestion. Ther e is a small right pleural effusion. Confluent airspace opacities are again seen throughout both lung . No pneumothorax is seen. The skeletal structures are osteopenic. The bony thorax is grossly intact. Advanced arthritic change is seen in the shoulders. Spondylotic change is seen in the spine and IMPRESSION: 1. Cardiomegaly with pulmonary vascular congestion. 2. Confluent airspace opacities are again seen throughout both lungs. This is similar to 12/04/2021. 3. A right pleural effusion persists. ACT 112: Negative or not required by law. Electronically signed by: Osmel Garza M.D. 12/06/2021 10:45 AM
--- NOTE | 2021-12-06 11:27 | Pulmonology Progress Note ---
Date of Service December 06, 2021 Assessment & Plan (1) Acute respiratory failure with hypoxia: (2) Pneumonia: Laterality: right Lung location: unspecified part of lung Pneumonia type: due to unspecified organism Qualified Code(s): J18.9 - Pneumonia, unspecified organism Plan CT chest 11/30/2021 personally reviewed: Diffuse patchy alveolar opacities appreciated bilaterally more on the right side Bilateral pleural effusions small on the right Cardiomegaly No mediastinal lymphadenopathy ABG 12/04/2021: 7.46/36/118 on 5 L -- Acute hypoxic respiratory failure Multifactorial Patient does have diffuse patchy alveolar opacities which are even appreciated on the CT chest which was done 11/14/2021 Underlying CHF is also playing its role Patient was diuresed 16L at [facility] and sputum culture was negative for any growth as per previous records Differential includes autoimmune process, DAH, infection I do think patient has underlying ILD like picture on top of diastolic CHF Continue with steroids for the time being Procalcitonin 0.71, CRP 14.02 Covid-19 PCR negative, influenza A/B negative Respiratory bio fire negative Absolute eosinophil count 610 on 12/02/2021 Patient does have lymphopenia Continue with diuretics O2 supplementation to keep O2 saturation between 88-92% Follow-up autoimmune work-up Negative for rheumatoid factor and anti-Pam 1 --Metabolic encephalopathy Patient is not hypercapnic TSH within normal limit Patient's BUN is 90 which might be playing a role in his encephalopathy --DNR/DNI Plan: In/out: -170, - 4 L since coming to the hospital Chest x-ray from today does not show any significant change compared to the 1 done on the Diffuse opacities appreciated bilaterally Continue with steroids for the time being Hold further diuretics. I think patient is actually intravascularly dehydrated. I will give him 125 mL of half NS for 10 hours. This will help with his creatinine as well as hyponatremia. I spoke with patient's son as well as at bedside. Patient did have a POLST form which stated that he did not want intubation or resuscitative measures. I did go over with the family what it means and they are understanding and would not like any elevation of care. We will continue with the current treatment right now. Patient had some difficulty swallowing today and coughing episode while taking his meds. I will get dedicated swallow eval Case discussed with Dr. Caballero Patient's Sudha [phone] was called and current condition and prognosis. Okay to intubate the patient if need be as per patient's Please note the above document was generated using voice recognition software. It may contain grammatical, syntax or spelling errors.Any formal questions or concerns about the content, text or information contained within the body of this dictation should be directly addressed to the provider for clarification. Admission and Anticipated Discharge Date Admission Date: November 30, 2021 Subjective Patient seen and examined at bedside. No acute distress, no adverse events overnight Patient is answering questions appropriately He does seem tired of being in the hospital. He wants to go home He does answer simple questions. Denied any headache, no nausea. No vomiting He was found to have difficulty swallowing today with coughing episodes. Review of Systems Review of Systems: All systems reviewed & are unremarkable except as noted in Subjective Physical Exam Physical Exam: Constitutional: No acute distress HEENT: EOMI, PERRLA Respiratory system: Decreased air entry bilaterally, no wheeze, no rhonchi, positive crackles appreciated bilateral CVS: S1-S2 positive, no murmurs or gallops Abdomen: Soft, nontender, nondistended, positive bowel sounds x4, obese Extremities: +2 pulses bilaterally radialis/ dorsalis pedis, no cyanosis, no edema Neuro: Awake alert oriented to self and place Psych: Normal mood and affect G/U: Positive Galan Skin: no rashes, warm and dry Lymphatic: no cervical or axillary lymphadenopathy Results & Data Results & Data ([facility]) Vital Signs (Past 12 Hours) Vital Signs Temp Pulse Pulse Resp BP Pulse Ox Pulse Ox 12/06/21 11:00 97 H 18 91 12/06/21 10:01 91 H 26 H 89 L 12/06/21 10:01 160/66 H 12/06/21 10:00 96 H 22 87 L 12/06/21 09:01 96 H 16 93 12/06/21 09:01 96/60 L 12/06/21 09:00 98 H 26 H 90 12/06/21 08:00 89 L 12/06/21 08:01 157/68 H 12/06/21 08:01 95 H 27 H 90 12/06/21 08:00 103 H 19 91 12/06/21 07:12 152/77 H 12/06/21 07:12 103 H 22 86 L 12/06/21 07:00 104 H 22 88 L 12/06/21 06:00 94 H 21 93 12/06/21 06:00 171/72 H 12/06/21 08:00 12/06/21 07:21 101 H 18 90 12/06/21 04:10 102 H 20 93 12/06/21 05:26 92 H 36 H 96 12/06/21 05:26 172/72 H 12/06/21 05:20 93 H 37 H 96 12/06/21 05:10 99 H 24 93 12/06/21 05:00 100 H 28 H 94 12/06/21 04:50 97 H 18 96 12/06/21 04:40 103 H 32 H 93 12/06/21 04:30 98 H 19 97 12/06/21 04:20 98 H 25 H 91 12/06/21 04:10 96 H 24 92 12/06/21 04:01 153/65 H 12/06/21 04:01 99 H 15 95 12/06/21 04:00 99 H 30 H 12/06/21 03:50 103 H 26 H 90 12/06/21 03:40 95 H 17 90 12/06/21 03:30 101 H 19 93 12/06/21 03:20 99 H 22 93 12/06/21 03:10 102 H 40 H 91 12/06/21 03:01 100 H 34 H 94 12/06/21 03:01 168/62 H 12/06/21 03:00 101 H 29 H 92 12/06/21 02:50 102 H 25 H 91 12/06/21 02:40 93 H 43 H 94 12/06/21 02:30 85 31 H 93 12/06/21 02:20 85 33 H 93 12/06/21 02:10 86 27 H 94 12/06/21 02:00 88 36 H 93 12/06/21 02:00 131/60 12/06/21 01:50 88 34 H 94 12/06/21 01:40 99 H 45 H 93 12/06/21 01:30 93 H 37 H 94 12/06/21 01:20 91 H 33 H 95 12/06/21 01:10 89 26 H 95 12/06/21 01:00 88 20 95 09/21/22 01:00 146/65 H 12/06/21 00:50 86 20 95 12/06/21 00:40 89 30 H 96 12/06/21 00:30 93 H 22 96 12/06/21 00:20 99 H 29 H 96 12/06/21 00:10 97 H 20 94 12/06/21 00:00 96 H 21 97 12/06/21 00:00 159/82 H 12/05/21 23:50 96 H 34 H 98 12/05/21 23:40 96 H 25 H 96 12/05/21 23:30 95 H 23 96 12/06/21 05:30 36.8 C 12/06/21 02:27 69 12/05/21 23:40 101 H 18 93 O2 Del Method O2 Del Method O2 Flow Rate FiO2 12/06/21 11:00 High Flow Nasal Cannula 40 75 12/06/21 10:01 12/06/21 10:01 12/06/21 10:00 12/06/21 09:01 12/06/21 09:01 12/06/21 09:00 12/06/21 08:00 High Flow Nasal Cannula 12/06/21 08:01 12/06/21 08:01 12/06/21 08:00 12/06/21 07:12 12/06/21 07:12 12/06/21 07:00 12/06/21 06:00 12/06/21 06:00 12/06/21 08:00 High Flow Nasal Cannula 40 85 12/06/21 07:21 High Flow Nasal Cannula 40 85 12/06/21 04:10 High Flow Nasal Cannula 40 85 12/06/21 05:26 12/06/21 05:26 12/06/21 05:20 12/06/21 05:10 12/06/21 05:00 12/06/21 04:50 12/06/21 04:40 12/06/21 04:30 12/06/21 04:20 12/06/21 04:10 12/06/21 04:01 12/06/21 04:01 12/06/21 04:00 12/06/21 03:50 12/06/21 03:40 12/06/21 03:30 12/06/21 03:20 12/06/21 03:10 12/06/21 03:01 12/06/21 03:01 12/06/21 03:00 12/06/21 02:50 12/06/21 02:40 12/06/21 02:30 12/06/21 02:20 12/06/21 02:10 12/06/21 02:00 12/06/21 02:00 12/06/21 01:50 12/06/21 01:40 12/06/21 01:30 12/06/21 01:20 12/06/21 01:10 12/06/21 01:00 12/06/21 01:00 12/06/21 00:50 12/06/21 00:40 12/06/21 00:30 12/06/21 00:20 12/06/21 00:10 12/06/21 00:00 12/06/21 00:00 12/05/21 23:50 12/05/21 23:40 12/05/21 23:30 12/06/21 05:30 12/06/21 02:27 12/05/21 23:40 High Flow Nasal Cannula 40 85 Laboratory Results 12/06/21 07:02 12/06/21 07:02 PG Care Time/CCT Total # of Minutes Spent Total Time Spent with Patient: Total time spent is greater than 50% in coordination of care (as documented) at patient's floor/unit and/or counseling patient: Coding Level of Care Code 07970 Subseq Hosp Care Lvl 3 Diagnoses Acute respiratory failure with hypoxia J96.01 Pneumonia J18.9 Laterality: right Lung location: unspecified part of lung Pneumonia type: due to unspecified organism
[2021-12-06] MEDS: SODIUM CHLORIDE 0.45 % 1,000 ML IV SCH ×2 (12:52→23:30)
[2021-12-06 14:47] LABS: Hematocrit (blood only) 22.5 % (40.1-51.0); Hemoglobin 7.3 g/dl (14.0-18.0)
[2021-12-06] MEDS ORDERED: SODIUM CHLORIDE 0.9% 250 ML IV PRN (14:51)
--- NOTE | 2021-12-06 15:11 | Hospitalist Progress Note ---
Date of Service December 06, 2021 Assessment & Plan (1) Acute encephalopathy: (2) Acute respiratory failure with hypoxia: (3) Paroxysmal atrial fibrillation with RVR: (4) Acute on chronic anemia: Plan 76-year-old male with PMH of pulmonary nodule, HLD, HTN, BPH, CKD stage IIIb, a nemia due to stage III CKD, moderate episode of recurrent major depressive disorder, lumbar spinal stenosis, cervical spinal stenosis, statin intolerance, on chronic low-dose systemic steroid for degenerative joint disease [per records] presented to hospital 11/30 from physical therapy because he appeared short of breath and ill-appearing. Of note patient was recently discharged from [facility] after transfer for acute respiratory failure requiring intubation and concern for cervical injury [found to have C1 fracture] due to recurrent falls at home. He was aggressively diuresed, intubated, extubated on 11/16/2021 and was to follow-up with neurosurgery as an outpatient on 12/20/2021. Patient was treated for concern of hospital-acquired pneumonia with course of cefepime and doxycycline. Patient was recommended for inpatient rehab but went home with home health. He is being managed for the following: Acute respiratory failure with hypoxia: Etiology not very clear at the moment Patient presented with shortness of breath and ill-appearing, history of CHF and aggressive diuresis [13 L at [facility] last month]. Patient was hypoxic to 60s to 70s on room air in ED requiring 15 L nonrebreather. Unclear if this presentation is all CHF related as admitting CT chest with extensive opacities bilaterally with somewhat nodular appearance. Admitting BNP was in fact at 347, improved from 1319 in October. 12/01 TTE: EF 65 to 70%, grade 1 diastolic dysfunction, right ventricular normal size and function. Normal left ventricular wall thickness. CRP elevated at 14.02, ESR 67, Pro-Olivier elevated at 0.71 at presentation 11/30 respiratory panel negative. 11/30 urine toxicology screen positive for opiates/codeine/morphine/hydromorphone [OP chart review, patient is prescribed morphine/trazodone] Cardiology evaluated, continue to hold diuretic therapy. Patient appears euvolemic to dry on exam. Pulmonology on board, likely inflammatory versus other lung pathology, rheumatological work-up 12/01 sent and pending --RF negative/Pam 1 antibody negative/rest are pending Patient still requiring high flow oxygen, patient has been taking off his oxygen on and off but not overtly combative, RN made aware that we can utilize one-to-one if he is consistently taking his oxygen off. Patient still drowsy and lethargic at bedside exam, oriented on and off, coughing up thick mucus, had swallowing problem today w/ pills, speech eval to follow, npo until then Pt is DNR/DNI. Palliative care has been consulted. Patient is on antibiotic for HAP or other chronic pulmonary infection and is also on steroid per pulmonology service Repeat CXR w/ b/l opacities, no improvement. Paroxysmal Atrial fibrillation: Patient went into A. fib with heart rate up to 120s overnight 12/03-12/04, status post a spontaneous conversion back to sinus at 2:14 AM on 12/04/2021, back in afib at bedside exam today. Cardiology evaluated, holding heparin given hemoglobin drop overnight 12/04-12/05. Metoprolol was started 12/04 and dose being titrated. Will continue to monitor, appreciate cardiology recommendation. Acute on chronic anemia: Hb from OP chart review: in 13s in 2008, in 11s in [id number]; in 10s in 2019 - 2020; in 9s early 2021 then in 7s to 8s by mid 2021; he needed transfusion while in [facility] in last October. Hb 7.2 at this presentation, has been 7-8 mostly. Family not aware of any blood related disorders w/ the patient. B12/folate level wnl, Ferriting elevated >500; iron level low; Likely Anemia of CKD Stage 3b. 12/05: Haptoglobin pending, LDH 230, retics and maria t pending. Hb dropped to 6.5 overnight of 12/04-12/05, no concern of bleeding per rectum or blood in stool per RN, had BM on 12/04 per RN. Repeat Hb 7.4 and then 6.3. FOBT has been sent. PPI IV, if FOBT +ve consider GI consult. s/p 1unit PRBC, Hb closer to 7, Pt looks pale, transfusing 1 more unit PRBC. Consider CTAP /retroperitoneal hematoma scan if fobt -ve. STEFFI over chronic kidney disease stage IIIb: OP Chart review for BUN/Cr: Cr 1.5 to 2.1 since 2016, mostly in 1.8s; BUN in 30s to high 40s in the same time frame. Admitting creatinine of 2.18, initially up trended, lately in 1.8s,slightly uptrended today, on gentle ivf, pt looks euvolemic to dry Acute hyperkalemia: Admitting potassium of 6.2, likely in the background of worsening renal function, required Veltassa, has been WNL. Hypernatremia: Likely secondary to dehydration due to n.p.o. status, patient on IV fluid, will continue to monitor BMP. CHF: History of, TTE as above, continue with telemetry monitoring, cardiology evaluated, Lasix on hold. Continue with home meds. Altered mental status/likely acute metabolic encephalopathy: On the background of acute hypoxic respiratory failure versus other acute illness as above, expect to improve with improvement in the above conditions. Patient was agitated and delirious in the ED requiring chemical sedation as per verbal redirection was unsuccessful, as needed occasional p.o. Zyprexa for agitation. Will monitor for resolution with above interventions. EEG 12/04 with no epileptiform abnormalities. Other chronic medical conditions: BPH/HTN/HLD--> statin intolerance, continue home meds as appropriate. DVT prophylaxis: SCDs, Re: bleeding Code Status: DNR/DNI Dispo: PCU/Telemetry, likely to ICU care if with worsening. Discussed with logistics project manager. Guarded prognosis. Palliative care has been consulted. Patient's was updated at bedside on 12/04 and patient's /patient's son Ron was updated at bedside on 12/05 and 12/06. Answered all their questions. Admission and Anticipated Discharge Date Admission Date: November 30, 2021 Subjective Patient seen and examined at bedside as a follow-up of acute respiratory failure with hypoxia, CHF, STEFFI over CKD, altered mental status. Patient was lying in bed, drowsy, on high flow nasal cannula oxygen, per RN patient had difficulty swallowing and was choking on pills, speech has been consulted, npo. Patient's and son updated at bedside again.Endorses pain at lower back which per family is chronic pain for him, ROS n/a due to cognition status . Pt in afib at bedside exam. Physical Exam Physical Exam: GENERAL: drowsy, arousable, NAD, on HFNC 40L HEENT: + pallor, no icterus. Pupils equal, round and reactive to light. Oral mucosa moist. NECK: No JVD, no neck masses. HEART: S1 and S2 heard. irregular rate and rhythm. No murmur, no gallop. RESPIRATORY SYSTEM: Normal AP diameter. No accessory muscle use. No wheezing, b/b crackles. ABDOMEN: Soft, bowel sounds present, nontender, no distention. CENTRAL NERVOUS SYSTEM: No facial droop. Speech is clear. Obeys simple commands. Moves extremities. EXTREMITIES: No edema, no erythema seen. UC noted. Results & Data Results & Data ([facility]) Vital Signs (Past 12 Hours) Vital Signs Temp Pulse Pulse Resp BP Pulse Ox Pulse Ox 12/06/21 12:01 92 H 28 H 88 L 12/06/21 12:01 147/112 H 12/06/21 12:00 98 H 18 83 L 12/06/21 11:01 145/54 H 12/06/21 11:01 97 H 28 H 84 L 12/06/21 11:00 96 H 17 78 L 12/06/21 12:00 37 C 12/06/21 11:00 97 H 18 91 12/06/21 10:01 91 H 26 H 89 L 12/06/21 10:01 160/66 H 12/06/21 10:00 96 H 22 87 L 12/06/21 09:01 96 H 16 93 12/06/21 09:01 96/60 L 12/06/21 09:00 98 H 26 H 90 12/06/21 08:00 89 L 12/06/21 08:01 157/68 H 12/06/21 08:01 95 H 27 H 90 12/06/21 08:00 103 H 19 91 12/06/21 07:12 152/77 H 12/06/21 07:12 103 H 22 86 L 12/06/21 07:00 104 H 22 88 L 12/06/21 06:00 94 H 21 93 12/06/21 06:00 171/72 H 12/06/21 08:00 12/06/21 07:21 101 H 18 90 12/06/21 04:10 102 H 20 93 12/06/21 05:26 92 H 36 H 96 12/06/21 05:26 172/72 H 12/06/21 05:20 93 H 37 H 96 12/06/21 05:10 99 H 24 93 12/06/21 05:00 100 H 28 H 94 12/06/21 04:50 97 H 18 96 12/06/21 04:40 103 H 32 H 93 12/06/21 04:30 98 H 19 97 12/06/21 04:20 98 H 25 H 91 12/06/21 04:10 96 H 24 92 12/06/21 04:01 153/65 H 12/06/21 04:01 99 H 15 95 12/06/21 04:00 99 H 30 H 12/06/21 03:50 103 H 26 H 90 12/06/21 03:40 95 H 17 90 12/06/21 03:30 101 H 19 93 12/06/21 03:20 99 H 22 93 12/06/21 03:10 102 H 40 H 91 12/06/21 03:01 100 H 34 H 94 12/06/21 03:01 168/62 H 12/06/21 03:00 101 H 29 H 92 12/06/21 05:30 36.8 C O2 Del Method O2 Del Method O2 Flow Rate FiO2 12/06/21 12:01 12/06/21 12:01 12/06/21 12:00 12/06/21 11:01 12/06/21 11:01 12/06/21 11:00 12/06/21 12:00 12/06/21 11:00 High Flow Nasal Cannula 40 75 12/06/21 10:01 12/06/21 10:01 12/06/21 10:00 12/06/21 09:01 12/06/21 09:01 12/06/21 09:00 12/06/21 08:00 High Flow Nasal Cannula 12/06/21 08:01 12/06/21 08:01 12/06/21 08:00 12/06/21 07:12 12/06/21 07:12 12/06/21 07:00 12/06/21 06:00 12/06/21 06:00 12/06/21 08:00 High Flow Nasal Cannula 40 85 12/06/21 07:21 High Flow Nasal Cannula 40 85 12/06/21 04:10 High Flow Nasal Cannula 40 85 12/06/21 05:26 12/06/21 05:26 12/06/21 05:20 12/06/21 05:10 12/06/21 05:00 12/06/21 04:50 12/06/21 04:40 12/06/21 04:30 12/06/21 04:20 12/06/21 04:10 12/06/21 04:01 12/06/21 04:01 12/06/21 04:00 12/06/21 03:50 12/06/21 03:40 12/06/21 03:30 12/06/21 03:20 12/06/21 03:10 12/06/21 03:01 12/06/21 03:01 12/06/21 03:00 12/06/21 05:30
[2021-12-06] MEDS: traZODone HCL 100 MG TAB PO SCH (20:20)
[2021-12-07] MEDS ORDERED: HYDROmorphone INJ 0.5 MG/0.5 ML SYR IV STA (01:12)
[2021-12-07] MEDS: ACETAMINOPHEN 325 MG TAB PO PRN (02:47)
[2021-12-07 05:32] LABS: Hematocrit (blood only) 24.9 % (40.1-51.0); Hemoglobin 8.2 g/dl (14.0-18.0); Mean Corpuscular Hemoglobin 29.5 pg (25.0-34.0); Mean Corpuscular Hgb Conc 32.9 g/dL (32.0-36.0); Mean Corpuscular Volume 89.6 fL (80.0-100.0); Mean Platelet Volume 11.1 fL (9.4-12.4); Nucleated RBC # (auto) 0.06 K/uL (0-0); Nucleated RBC % (auto) 0.4 %; Platelet Count 283 K/uL (130-400); RDW Standard Deviation 52.2 fL (36.4-46.3); Red Blood Count 2.78 M/uL (4.63-6.08); White Blood Count 16.33 K/ul (4.8-10.8)
[2021-12-07] MEDS: SODIUM CHLORIDE 0.45 % 1,000 ML IV SCH (05:42)
[2021-12-07 05:43] LABS: Partial Thromboplastin Time 28.3 Seconds (21.0-31.0)
[2021-12-07 05:55] LABS: BUN Creatinine Ratio 50.3 (10-20); Creatinine Clr Calc Pharmacy 37.1 ml/min; Est GFR (African American) 41.7 ml/min; Phosphorus 2.9 mg/dl (2.5-4.9); Potassium 3.6 mmol/L (3.5-5.1)
--- NOTE | 2021-12-07 09:16 | Cardiology Progress Note ---
Date of Service December 07, 2021 Assessment & Plan (1) Paroxysmal atrial fibrillation with RVR: Plan: Continue metoprolol tartrate as presently prescribed. Consider restart heparin pending ongoing evaluation of anemia and serial H&H assessment. (2) Acute respiratory failure with hypoxia: Plan: Volume status: Normovolemic to mildly hypovolemic. Continue to hold diuretic therapy. Further evaluation and treatment as per Pulmonary Medicine. (3) Anemia: Plan: Hgb improved to 8.2 g/dL this AM. (4) Dyslipidemia: Plan: Fenofibrate prescribed by PCP in 2014 for dyslipidemia after poor tolerance to statins (simvastatin, atorvastatin, rosuvastatin, and pravastatin) observed. No significant hypertriglyceridemia noted on outpatient chart review. Given the patient's renal dysfunction and postmarketing reports of interstitial pulmonary disease, fenofibrate discontinued. Ezetimibe (Zetia) 10 mg/day may be a future option. Recommend Palliative Care/Hospice. Please contact with any questions or concerns. Admission and Anticipated Discharge Date Admission Date: November 30, 2021 Supervising Physician Co-Signing Physician Notes Patient seen examined the bedside. Remains in atrial fibrillation over the past 24 hours. Denies palpitations. Heparin on hold due to anemia and possible blood loss, although, hemoglobin improved today. Patient would like to be discharged as soon as possible. Family present at bedside. PE: Hypoxic requiring high flow oxygen otherwise vital signs stable. Gen:Ill, NAD. Heart: Irregular rhythm, borderline tachycardic, no murmur. Lungs: Diminished breath sounds at the bases bilateral. Extremities: No edema. A/P: Agree with above PA-C history, physical exam, assessment and plan. Continue metoprolol to 25 mg twice daily. Consider restart heparin pending ongoing evaluation of anemia and serial H&H assessment. Subjective Patient seen and examined. Chart, medications, telemetry reviewed. No family present at bedside when evaluated earlier this morning. Telemetry: Paroxysmal atrial fibrillation with an intermittently mildly elevated ventricular response. Review of Systems Review of Systems: All systems reviewed & are unremarkable except as noted in Subjective Physical Exam Physical Exam: General: No acute distress HENT: Normocephalic. Atraumatic. Eyes: No overt JVD. Heart: Irregularly irregular at 88 bpm. No murmur appreciated. No rub. Lungs: Clear anteriorly. Abdomen: +BS. Soft. Nontender. No masses or organomegaly. + Galan catheter Extremities: No lower extremity peripheral edema. Results & Data ([facility]) Vital Signs (Past 12 Hours) Vital Signs Temp Pulse Pulse Resp BP Pulse Ox O2 Del Method 12/07/21 00:00 90 12/07/21 03:14 36.9 C 85 18 108/92 92 High Flow Nasal Cannula 12/07/21 03:01 91 H 26 H 91 High Flow Nasal Cannula 12/06/21 22:00 92 H 12/07/21 00:50 24 90 High Flow Nasal Cannula 12/07/21 00:00 36.4 C L 90 26 H 144/65 H 94 BiPAP 12/06/21 21:48 75 27 H 94 O2 Flow Rate FiO2 12/07/21 00:00 12/07/21 03:14 50 100 12/07/21 03:01 50 100 12/06/21 22:00 12/07/21 00:50 50 100 12/07/21 00:00 90 12/06/21 21:48 90 Laboratory Results Coagulation 12/07/21 Range/Units 05:07 APTT 28.3 (21.0-31.0) Seconds CBC 12/06/21 12/07/21 Range/Units 14:13 05:00 WBC 16.33 H (4.8-10.8) K/ul RBC 2.78 L (4.63-6.08) M/uL Hgb 7.3 L 8.2 L (14.0-18.0) g/dl Hct 22.5 L 24.9 L (40.1-51.0) % Plt Count 283 (130-400) K/uL Comprehensive Metabolic Panel 12/06/21 12/07/21 Range/Units 07:02 05:00 Sodium 148 H 142 (136-145) mmol/L Potassium 4.4 3.6 (3.5-5.1) mmol/L Chloride 116 H 112 H (98-107) mmol/L Carbon Dioxide 24 22 (21-32) mmol/L BUN 102 H 89 H (6-23) mg/dl Creatinine 2.02 H 1.77 H (0.6-1.4) mg/dl Glucose 155 H 144 H (70-99(Fasting)) mg/dl Calcium 9.8 9.0 (8.5-10.1) mg/dl Intake and Output 12/06/21 12/07/21 12/07/21 22:59 06:59 14:59 Intake Total 1720 / 2340.417 510.417 / 2340.417 Output Total 950 / 950 Balance 770 / 1390.417 510.417 / 1390.417 Intake: IV 1110 / 1730.417 510.417 / 1730.417 Doxycycline Hyclate 100 mg In 110 / 220 Dextrose 5% 100 ml @ 50 mls/hr IV Q12H [facility] Rx#:[id number] Sodium Chloride 0.45 % 1,000 ml 1000 / 1510.417 510.417 / 1510.417 @ 125 mls/hr IV .Q8H [facility] Rx#: [id number] Oral 300 / 300 Intake (Blood Product) Amt 310 / 310 Packed Cells, Leukoreduced 310 / 310 Unit [id number] Output: Urine Amount (Catheter) 950 / 950 Galan/Indwelling 950 / 950 (1) Anemia Anemia type: unspecified type Qualified Code(s): D64.9 - Anemia, unspecified
[2021-12-07] MEDS: amLODIPine BESYLATE 5 MG TAB PO SCH (09:56)
[2021-12-07] MEDS: GABAPENTIN 400 MG CAP PO SCH ×2 (09:56→20:00)
[2021-12-07] MEDS: ASPIRIN 81 MG ECTAB PO SCH (09:56)
[2021-12-07] MEDS: CHOLECALCIFEROL 1,000 UNITS 25 MCG TAB PO SCH (09:56)
[2021-12-07] MEDS: METOPROLOL TARTRATE 25 MG TAB PO SCH ×3 (09:56→21:59)
[2021-12-07] MEDS: TAMSULOSIN HCL 0.4 MG CAP PO SCH (09:56)
[2021-12-07] MEDS: PANTOprazole 40 MG in SYRINGE 0 ML IV SCH (09:56)
[2021-12-07] MEDS: MIRABEGRON ER 25 MG TAB PO SCH (09:56)
[2021-12-07] MEDS: MULTIVITAMIN TAB PO SCH (09:56)
[2021-12-07] MEDS ORDERED: SOLIFENACIN SUCCINATE PO SCH (10:00)
[2021-12-07] MEDS ORDERED: predniSONE 50 MG TAB PO ONE (10:15)
[2021-12-07] MEDS: methylPREDNISolone 40 MG in SYRINGE 0 ML IV SCH (10:43)
[2021-12-07] MEDS: FERROUS SULFATE 325 MG TAB PO SCH ×3 (10:44→21:58)
[2021-12-07] MEDS: CEFEPIME 2,000 MG in SYRINGE 0 ML IV SCH (10:46)
[2021-12-07] MEDS: DOXYCYCLINE HYCLATE 100 MG in DEXTROSE 5% 100 ML IV SCH (10:46)
--- NOTE | 2021-12-07 11:05 | Pulmonology Progress Note ---
Date of Service December 07, 2021 Assessment & Plan (1) Acute respiratory failure with hypoxia: (2) Pneumonia: Laterality: right Lung location: unspecified part of lung Pneumonia type: due to unspecified organism Qualified Code(s): J18.9 - Pneumonia, unspecified organism (3) Abnormal chest CT: Plan CT chest 11/30/2021 personally reviewed: Diffuse patchy alveolar opacities appreciated bilaterally more on the right side Bilateral pleural effusions small on the right Cardiomegaly No mediastinal lymphadenopathy ABG 12/04/2021: 7.46/36/118 on 5 L -- Acute hypoxic respiratory failure Multifactorial Patient does have diffuse patchy alveolar opacities which are even appreciated on the CT chest which was done 11/14/2021 Underlying CHF is also playing its role Patient was diuresed 16L at [facility] and sputum culture was negative for any growth as per previous records Differential includes autoimmune process, DAH, infection I do think patient has underlying ILD like picture on top of diastolic CHF Continue with steroids for the time being Procalcitonin 0.71, CRP 14.02 Covid-19 PCR negative, influenza A/B negative Respiratory bio fire negative Absolute eosinophil count 610 on 12/02/2021 Patient does have lymphopenia Continue with diuretics O2 supplementation to keep O2 saturation between 88-92% Follow-up autoimmune work-up Negative for rheumatoid factor and anti-Pam 1 --Metabolic encephalopathy Patient is not hypercapnic TSH within normal limit Patient's BUN is 90 which might be playing a role in his encephalopathy --DNR/DNI Plan: I again spoke with patient as well as patient's son and in depth There is been no significant improvement in patient's oxygen requirement for more than a week. Autoimmune work-up is still not back but he is already getting steroids. Given there is no access I did change all of his medications to p.o. Continue with p.o. water. Patient and patient's family will think about palliative care/comfort care and let us know. Cesia'loreta Haley [phone] Please note the above document was generated using voice recognition software. It may contain grammatical, syntax or spelling errors.Any formal questions or concerns about the content, text or information contained within the body of this dictation should be directly addressed to the provider for clarification. Admission and Anticipated Discharge Date Admission Date: November 30, 2021 Subjective Patient seen and examined at bedside. Patient's family also bedside. Overnight patient was depressed and was asking to go home. He was saturating 90-91% on 100% FiO2, 40 L Was asking if CPAP with nasal pillows can be used instead of the high flow. Denies any chest pain, no headache, no nausea, no vomiting Unfortunately we are not able to get any peripheral access on him. Review of Systems Review of Systems: All systems reviewed & are unremarkable except as noted in Subjective Physical Exam Physical Exam: Constitutional: No acute distress HEENT: EOMI, PERRLA Respiratory system: Decreased air entry bilaterally, no wheeze, no rhonchi, positive crackles appreciated bilateral CVS: S1-S2 positive, no murmurs or gallops Abdomen: Soft, nontender, nondistended, positive bowel sounds x4, obese Extremities: +2 pulses bilaterally radialis/ dorsalis pedis, no cyanosis, no edema Neuro: Awake alert oriented to self and place Psych: Normal mood and affect G/U: Positive Galan Skin: no rashes, warm and dry Lymphatic: no cervical or axillary lymphadenopathy Results & Data Results & Data ([facility]) Vital Signs (Past 12 Hours) Vital Signs Temp Pulse Pulse Resp BP Pulse Ox O2 Del Method 12/07/21 07:14 91 H 24 89 L High Flow Nasal Cannula 12/07/21 00:00 90 12/07/21 03:14 36.9 C 85 18 108/92 92 High Flow Nasal Cannula 12/07/21 03:01 91 H 26 H 91 High Flow Nasal Cannula 12/07/21 00:50 24 90 High Flow Nasal Cannula 12/07/21 00:00 36.4 C L 90 26 H 144/65 H 94 BiPAP O2 Flow Rate FiO2 12/07/21 07:14 50 100 12/07/21 00:00 12/07/21 03:14 50 100 12/07/21 03:01 50 100 12/07/21 00:50 50 100 12/07/21 00:00 90 Laboratory Results 12/07/21 05:00 12/07/21 05:00 PG Care Time/CCT Total # of Minutes Spent Total Time Spent with Patient: Total time spent is greater than 50% in coordination of care (as documented) at patient's floor/unit and/or counseling patient: Coding Level of Care Code 55757 Subseq Hosp Care Lvl 2 Diagnoses Acute respiratory failure with hypoxia J96.01 Pneumonia J18.9 Laterality: right Lung location: unspecified part of lung Pneumonia type: due to unspecified organism Abnormal chest CT R93.89
[2021-12-07] MEDS: SOLIFENACIN SUCCINATE PO SCH (12:25)
[2021-12-07 14:53] LABS: Hematocrit (blood only) 26.2 % (40.1-51.0); Hemoglobin 8.6 g/dl (14.0-18.0)
[2021-12-07] MEDS: predniSONE 50 MG TAB PO SCH (17:14)
--- NOTE | 2021-12-07 17:15 | Palliative Care Consultation ---
Date of Consultation December 07, 2021 Assessment & Plan (1) Acute respiratory failure with hypoxia: Etiology unclear, not responding to treatment. Mr. Schwartz and his family have decided to wean O2 tomorrow with hope of tolerating a flow rate that would allow him to go home. (2) Palliative care encounter: Mr. Schwartz is quite clear that he understands that his condition has not improved and he does not consider this an acceptable quality of life. He has strong osmel and has been talking to hospital [facility]. He denies fears or worries about dying. When asked what is most important to him, he told me that his , son and home are most important. He very much wants to be at home for his dying time. We discussed concern that the may not be able to withstand decrease in O2 support that would allow him to go home. His family supports his decision but are having some difficulty with not having a clear diagnosis. His son, Ron, expressed concern about making decision to shift focus of care to comfort and having regret that if he had waited a couple more days, it might have gotten better. We discussed that Mr. Schwartz had previously made the decision and that following through with his wishes is not actively deciding to withdraw care. We talked about knowing in the future that he did the right thing and should not have regrets. I talked with them about medications that could be used to relieve symptoms as O2 is tapered to ensure that he is not feeling pain, air hunger or anxiety. They denied additional questions or concerns at this time. History of Present Illness Reason for Consultation: goals of care Requesting Physician: Dr. Mccauley Attending Physician: Maddie Caballero MD History of Present Illness 76 yo gentleman with history of heart failure and recent hospitalization at [facility]. He presented with progressive dyspnea and mental status change. He has been euvolemic but has persistent hypoxic respiratory failure with bilateral airspace opacities on CT. He has been on high dose steroids for possible autoimmune dise ase with workup partially pending but negative thus far. He unfortunately has not had improvement and remains in high 80s, low 90s O2 sat despite 40L with 100% FiO2. He had initially been full code but family presented advance directive which indicates that he would not want intubation or other life sustaining measures. Per RN he has frequently been pulling at mask and is now using his nasal CPap device for O2 delivery. He is awake and alert and the first thing he says to me when I introduce myself is that he is ready to end his suffering. He has been complaining of back pain which family tells me is a chronic problem for him. He denies dyspnea at the time of my visit. Allergies Allergy/AdvReac Type Severity Reaction Status Date / Time Sulfa (Sulfonamide Allergy Mild rash Verified 12/25/12 11:22 Antibiotics) Home Medications Medication Instructions Recorded Confirmed Type fenofibrate micronized 134 mg 134 mg PO DAILY 10/25/21 11/30/21 History capsule mirabegron 50 mg tablet,extended 50 mg PO DAILY 10/25/21 11/30/21 History release 24 hr (Myrbetriq) solifenacin 10 mg tablet (Vesicare) 10 mg PO DAILY 10/25/21 11/30/21 History acetaminophen 650 mg 650 mg PO Q8H PRN pain 11/30/21 11/30/21 History tablet,extended release amlodipine 5 mg tablet 10 mg PO DAILY 11/30/21 11/30/21 History artificial saliva 3 applic mucous membrane UD 11/30/21 11/30/21 History aspirin 81 mg capsule 81 mg PO DAILY 11/30/21 11/30/21 History calcium carbonate 500 mg calcium 1,000 mg PO DAILY PRN Indigestion 11/30/21 11/30/21 History (1,250 mg) chewable tablet cholecalciferol (vitamin D3) 25 25 mcg PO DAILY 11/30/21 11/30/21 History mcg (1,000 unit) tablet diclofenac sodium 1 % topical gel 1 ea topical BID PRN Pain 11/30/21 11/30/21 History docusate sodium 100 mg capsule 100 mg PO BID 11/30/21 11/30/21 History (Colace) ferrous sulfate 325 mg (65 mg 325 mg PO BID 11/30/21 11/30/21 History iron) tablet,delayed release fluticasone propionate 50 2 spray intranasal DAILY 11/30/21 11/30/21 History mcg/actuation nasal spray,suspension furosemide 40 mg tablet 40 mg PO DAILY 11/30/21 11/30/21 History gabapentin 400 mg capsule 800 mg PO BID 11/30/21 11/30/21 History methocarbamol 750 mg tablet 750 mg PO QID PRN Muscle Spasm 11/30/21 11/30/21 History morphine 60 mg tablet,extended 60 mg PO BID 11/30/21 11/30/21 History release multivitamin 1 tab PO DAILY 11/30/21 11/30/21 History nitroglycerin 0.4 mg sublingual 0.4 mg sublingual UD 11/30/21 11/30/21 History tablet prednisone 5 mg tablet 5 mg PO DAILY 11/30/21 11/30/21 History tamsulosin 0.4 mg capsule 0.4 mg PO DAILY 11/30/21 11/30/21 History trazodone 50 mg tablet 100 mg PO HS 11/30/21 11/30/21 History triamcinolone acetonide 0.5 % 1 applic topical BID 11/30/21 11/30/21 History topical cream Patient History Medical History Acute encephalopathy Anemia Bilateral cellulitis of lower leg Chronic renal insufficiency Delirium Fall Fever Uremic encephalopathy Social History Smoking Status: Never smoker Tobacco Type: Cigarettes Second Hand Exposure: No; Hx Alcohol Use: No Hx Substance Use: No Preferred Language: Armenian Communication Ability: Impaired Scrap Handler Required: No Beliefs That Will Affect Care: None marital status: Current Living Situation: Spouse Feels Safe at Home: Yes Assistive Devices: BiPap, Walker and Wheelchair Review of Systems Review of Systems: ESAS Pain 2/3 Dyspnea 1/3 Nausea 0/3 Anxiety 2/3 Drowsiness 1/3 PPS 30% Physical Exam Constitutional: + ill appearing Respiratory: + uses accessory muscles Cardiovascular: Extremities: no edema Musculoskeletal: Extremities: extremities normal to inspection Skin: warm and dry Neurologic: awake; not confused Results & Data ([facility]) Vital Signs (Past 12 Hours) Vital Signs Temp Pulse Pulse Resp BP Pulse Ox Pulse Ox 12/07/21 16:01 155/82 H 12/07/21 16:01 94 H 23 90 12/07/21 16:00 92 H 28 H 90 12/07/21 15:00 92 H 24 88 L 12/07/21 08:00 90 12/07/21 08:00 12/07/21 14:18 80 28 H 92 12/07/21 14:13 153/70 H 12/07/21 14:13 85 27 H 91 09/22/22 14:00 81 25 H 90 12/07/21 13:00 79 23 90 12/07/21 12:00 87 19 92 12/07/21 11:00 83 27 H 87 L 12/07/21 10:00 90 23 89 L 12/07/21 09:52 149/110 H 12/07/21 09:52 92 H 21 88 L 12/07/21 09:00 82 26 H 92 12/07/21 08:00 88 32 H 91 12/07/21 07:00 93 H 21 88 L 12/07/21 07:00 97.9 F 12/07/21 11:32 91 H 24 90 12/07/21 07:14 91 H 24 89 L O2 Del Method O2 Del Method O2 Flow Rate O2 Flow Rate FiO2 12/07/21 16:01 12/07/21 16:01 12/07/21 16:00 12/07/21 15:00 12/07/21 08:00 High Flow Nasal Cannula 40 12/07/21 08:00 CPAP 100 12/07/21 14:18 100 12/07/21 14:13 12/07/21 14:13 12/07/21 14:00 12/07/21 13:00 12/07/21 12:00 12/07/21 11:00 12/07/21 10:00 12/07/21 09:52 12/07/21 09:52 12/07/21 09:00 12/07/21 08:00 12/07/21 07:00 12/07/21 07:00 12/07/21 11:32 100 12/07/21 07:14 High Flow Nasal Cannula 50 100 PG Care Time/CCT Total # of Minutes Spent Total Time Spent: 55 Total Time Spent with Patient: Total time spent is greater than 50% in coordination of care (as documented) at patient's floor/unit and/or counseling patient:goals of care, symptom management, patient and family education and support Coding Level of Care Code 05353 Initial Inpt Care Lvl 2 Diagnoses Acute respiratory failure with hypoxia J96.01 Palliative care encounter Z51.5
--- NOTE | 2021-12-07 18:02 | Hospitalist Progress Note ---
Date of Service December 07, 2021 Assessment & Plan (1) Acute encephalopathy: (2) Acute respiratory failure with hypoxia: (3) Paroxysmal atrial fibrillation with RVR: (4) Acute on chronic anemia: Plan 76-year-old male with PMH of pulmonary nodule, HLD, HTN, BPH, CKD stage IIIb, a nemia due to stage III CKD, moderate episode of recurrent major depressive disorder, lumbar spinal stenosis, cervical spinal stenosis, statin intolerance, on chronic low-dose systemic steroid for degenerative joint disease [per records] presented to hospital 11/30 from physical therapy because he appeared short of breath and ill-appearing. Of note patient was recently discharged from [facility] after transfer for acute respiratory failure requiring intubation and concern for cervical injury [found to have C1 fracture] due to recurrent falls at home. He was aggressively diuresed, intubated, extubated on 11/16/2021 and was to follow-up with neurosurgery as an outpatient on 12/20/2021. Patient was treated for concern of hospital-acquired pneumonia with course of cefepime and doxycycline. Patient was recommended for inpatient rehab but went home with home health. He is being managed for the following: Acute respiratory failure with hypoxia: Etiology not very clear at the moment Patient presented with shortness of breath and ill-appearing, history of CHF and aggressive diuresis [13 L at [facility] last month]. Patient was hypoxic to 60s to 70s on room air in ED requiring 15 L nonrebreather. Unclear if this presentation is all CHF related as admitting CT chest with extensive opacities bilaterally with somewhat nodular appearance. Admitting BNP was in fact at 347, improved from 1319 in October. 12/01 TTE: EF 65 to 70%, grade 1 diastolic dysfunction, right ventricular normal size and function. Normal left ventricular wall thickness. CRP elevated at 14.02, ESR 67, Pro-Olivier elevated at 0.71 at presentation 11/30 respiratory panel negative. 11/30 urine toxicology screen positive for opiates/codeine/morphine/hydromorphone [OP chart review, patient is prescribed morphine/trazodone] Cardiology evaluated, continue to hold diuretic therapy. Patient appears euvolemic to dry on exam. Pulmonology on board, likely inflammatory versus other lung pathology, rheumatological work-up 12/01 sent and pending --RF negative/Pam 1 antibody negative/rest are pending Patient still requiring high flow oxygen, patient has been taking off his oxygen on and off but not overtly combative, RN made aware that we can utilize one-to-one if he is consistently taking his oxygen off. Patient more alert and awake today but needing more oxygen today, patient on diet. Pt is DNR/DNI. Palliative care evaluated, appreciate recommendation. Patient is status post antibiotic for HAP or other chronic pulmonary infection and is also on steroid per pulmonology service 12/06 repeat CXR w/ b/l opacities, no improvement. d/w Pulm, guarded prognosis Paroxysmal Atrial fibrillation: Patient went into A. fib with heart rate up to 120s overnight 12/03-12/04, status post a spontaneous conversion back to sinus at 2:14 AM on 12/04/2021, still in afib at bedside exam today. Cardiology evaluated, holding heparin given hemoglobin drop overnight 12/04-12/05. Metoprolol was started 12/04 and dose being titrated. Will continue to monitor, appreciate cardiology recommendation. Acute on chronic anemia: Hb from OP chart review: in 13s in 2008, in 11s in [id number]; in 10s in 2019 - 2020; in 9s early 2021 then in 7s to 8s by mid 2021; he needed transfusion while in [facility] in last October. Hb 7.2 at this presentation, has been 7-8 mostly. Family not aware of any blood related disorders w/ the patient. B12/folate level wnl, Ferriting elevated >500; iron level low; Likely Anemia of CKD Stage 3b. 12/05: Haptoglobin 269, LDH 230, retics 0.06 and maria t pending. Hb dropped to 6.5 overnight of 12/04-12/05, no concern of bleeding per rectum or blood in stool per RN, had BM on 12/04 per RN. Repeat Hb 7.4 and then 6.3. FOBT has been sent. PPI IV, if FOBT +ve consider GI consult. s/p 2unit PRBC, Hb above 8. Consider CTAP /retroperitoneal hematoma scan if fobt -ve. STEFFI over chronic kidney disease stage IIIb: OP Chart review for BUN/Cr: Cr 1.5 to 2.1 since 2016, mostly in 1.8s; BUN in 30s to high 40s in the same time frame. Admitting creatinine of 2.18, initially up trended, lately in 1.8s. Lasix on hold, pt looks euvolemic. Acute hyperkalemia: Admitting potassium of 6.2, likely in the background of worsening renal function, required Veltassa, has been WNL. Hypernatremia: Likely secondary to dehydration due to n.p.o. status, improved, patient on diet. CHF: History of, TTE as above, continue with telemetry monitoring, cardiology evaluated, Lasix on hold. Continue with home meds. Altered mental status/likely acute metabolic encephalopathy: On the background of acute hypoxic respiratory failure versus other acute illness as above, expect to improve with improvement in the above conditions. Patient was agitated and delirious in the ED requiring chemical sedation as per verbal redirection was unsuccessful, as needed occasional p.o. Zyprexa for agitation. EEG 12/04 with no epileptiform abnormalities. Alert and awake today. Other chronic medical conditions: BPH/HTN/HLD--> statin intolerance, continue home meds as appropriate. DVT prophylaxis: SCDs, Re: bleeding Code Status: DNR/DNI Dispo: PCU/Telemetry, likely to ICU care if with worsening. Discussed with avionics safety inspector. Guarded prognosis. Palliative care has been consulted. Patient's was updated at bedside on 12/04 and patient's /patient's son Ron was updated at bedside on 12/05 and 12/06 and 12/07. Answered all their questions. Admission and Anticipated Discharge Date Admission Date: November 30, 2021 Subjective Patient seen and examined at bedside as a follow-up of acute respiratory failure with hypoxia, CHF, STEFFI over CKD, altered mental status. Patient was lying in bed, awake Ox3, on high flow nasal cannula oxygen 60L per min, Per RN pt eating ok and pt had expressed interest in comfort care in the night. Patient's and son updated at bedside again. Patient reports that he would like to go home and be on his CPAP, patient made aware that he is needing very high amount of oxygen which might not be compatible outside of the hospital. He was oriented x3 and expressed interest in comfort care but would like to try and see if his CPAP can help him. Respiratory is aware and has a plan to transition him to CPAP to see how he does. He denies any headache or dizziness or chest pain. He was more conversive today. He denied any belly pain. He expressed that he is not interested in staying hospital longer and he will have further discussion with his family regarding comfort care/other possibilities. Discussed with lung doctor. Patient lost peripheral access and not able to get other peripheral access. Physical Exam Physical Exam: GENERAL: Alert and oriented x3, NAD, on HFNC 60L HEENT: no pallor, no icterus. Pupils equal, round and reactive to light. Oral mucosa moist. NECK: No JVD, no neck masses. HEART: S1 and S2 heard. irregular rate and rhythm. No murmur, no gallop. RESPIRATORY SYSTEM: Normal AP diameter. No accessory muscle use. No wheezing, b/b crackles. ABDOMEN: Soft, bowel sounds present, nontender, no distention. CENTRAL NERVOUS SYSTEM: No facial droop. Speech is clear. Obeys simple commands. Moves extremities. EXTREMITIES: No edema, no erythema seen. UC noted. Results & Data Results & Data ([facility]) Vital Signs (Past 12 Hours) Vital Signs Temp Pulse Pulse Resp BP Pulse Ox Pulse Ox 12/07/21 17:42 89 12/07/21 17:12 36.6 C 12/07/21 16:01 155/82 H 12/07/21 16:01 94 H 23 90 12/07/21 16:00 92 H 28 H 90 12/07/21 15:00 92 H 24 88 L 12/07/21 08:00 90 12/07/21 08:00 12/07/21 14:18 80 28 H 92 12/07/21 14:13 153/70 H 12/07/21 14:13 85 27 H 91 12/07/21 14:00 81 25 H 90 12/07/21 13:00 79 23 90 12/07/21 12:00 87 19 92 12/07/21 11:00 83 27 H 87 L 12/07/21 10:00 90 23 89 L 12/07/21 09:52 149/110 H 12/07/21 09:52 92 H 21 88 L 12/07/21 09:00 82 26 H 92 12/07/21 08:00 88 32 H 91 12/07/21 07:00 93 H 21 88 L 12/07/21 07:00 36.6 C 12/07/21 11:32 91 H 24 90 12/07/21 07:14 91 H 24 89 L O2 Del Method O2 Del Method O2 Flow Rate O2 Flow Rate FiO2 12/07/21 17:42 12/07/21 17:12 12/07/21 16:01 12/07/21 16:01 12/07/21 16:00 12/07/21 15:00 12/07/21 08:00 High Flow Nasal Cannula 40 12/07/21 08:00 CPAP 100 12/07/21 14:18 100 12/07/21 14:13 12/07/21 14:13 12/07/21 14:00 12/07/21 13:00 12/07/21 12:00 12/07/21 11:00 12/07/21 10:00 12/07/21 09:52 12/07/21 09:52 12/07/21 09:00 12/07/21 08:00 12/07/21 07:00 12/07/21 07:00 12/07/21 11:32 100 12/07/21 07:14 High Flow Nasal Cannula 50 100
[2021-12-07] MEDS: PANTOprazole 40 MG TAB PO SCH ×2 (20:02→21:59)
[2021-12-07] MEDS: traZODone HCL 100 MG TAB PO SCH ×2 (20:04→21:59)
[2021-12-07 20:45] LABS: Base Excess ABG -0.5 mEq/L (-9-1.8); HCO3 ABG 23 mmol/L (19-24); Oxygen Saturation ABG 86.7 % (90-95); PCO2 ABG 34 mmHg (35-46); PO2 ABG 52 mmHg (80-95); pH ABG 7.44 (7.35-7.45)
[2021-12-07 20:52] LABS: Allen Test POS (Pos)
[2021-12-08] MEDS: ACETAMINOPHEN 325 MG TAB PO PRN (00:38)
[2021-12-08] MEDS ORDERED: ACETAMINOPHEN W/CODEINE #3 1 TAB PO ONE (01:52)
[2021-12-08] MEDS ORDERED: HYDROmorphone INJ 0.5 MG/0.5 ML SYR IV PRN (04:27)
[2021-12-08] MEDS ORDERED: traMADol HCL 50 MG TABLET PO STA (04:36)
[2021-12-08] MEDS ORDERED: traMADol HCL 50 MG TABLET PO PRN (06:24)
[2021-12-08 07:15] LABS: Creatinine Clr Calc Pharmacy 37.8 ml/min; Est GFR (African American) 42.6 ml/min; Est GFR (Non-African American) 36.7 ml/min
[2021-12-08 07:18] LABS: Partial Thromboplastin Ratio 1.1; Partial Thromboplastin Time 29.4 Seconds (21.0-31.0)
[2021-12-08] MEDS ORDERED: MoRPHine SULFATE CR 15 MG TABCR PO PRN (07:30)
[2021-12-08] MEDS: MIRABEGRON ER 25 MG TAB PO SCH (07:50)
[2021-12-08] MEDS: METOPROLOL TARTRATE 25 MG TAB PO SCH ×2 (07:51→20:06)
[2021-12-08] MEDS: CHOLECALCIFEROL 1,000 UNITS 25 MCG TAB PO SCH (07:51)
[2021-12-08] MEDS: amLODIPine BESYLATE 5 MG TAB PO SCH (07:51)
[2021-12-08] MEDS: TAMSULOSIN HCL 0.4 MG CAP PO SCH (07:51)
[2021-12-08] MEDS: PANTOprazole 40 MG TAB PO SCH ×2 (07:51→20:07)
[2021-12-08] MEDS: MULTIVITAMIN TAB PO SCH (07:51)
[2021-12-08] MEDS: FERROUS SULFATE 325 MG TAB PO SCH (07:52)
[2021-12-08] MEDS: ASPIRIN 81 MG ECTAB PO SCH (07:52)
[2021-12-08] MEDS: predniSONE 50 MG TAB PO SCH ×2 (07:52→16:08)
[2021-12-08 08:05] LABS: Hematocrit (blood only) 24.8 % (40.1-51.0); Hemoglobin 8.3 g/dl (14.0-18.0); Mean Corpuscular Hemoglobin 29.7 pg (25.0-34.0); Mean Corpuscular Hgb Conc 33.5 g/dL (32.0-36.0); Mean Corpuscular Volume 88.9 fL (80.0-100.0); Mean Platelet Volume 12.2 fL (9.4-12.4); Nucleated RBC # (auto) 0.05 K/uL (0-0); Nucleated RBC % (auto) 0.3 %; Platelet Count 273 K/uL (130-400); RDW Standard Deviation 51.5 fL (36.4-46.3); Red Blood Count 2.79 M/uL (4.63-6.08); White Blood Count 17.73 K/ul (4.8-10.8)
--- NOTE | 2021-12-08 08:34 | Pulmonology Progress Note ---
Date of Service December 08, 2021 Assessment & Plan (1) Acute respiratory failure with hypoxia: (2) Pneumonia: Laterality: right Lung location: unspecified part of lung Pneumonia type: due to unspecified organism Qualified Code(s): J18.9 - Pneumonia, unspecified organism (3) Abnormal chest CT: Plan CT chest 11/30/2021 personally reviewed: Diffuse patchy alveolar opacities appreciated bilaterally more on the right side Bilateral pleural effusions small on the right Cardiomegaly No mediastinal lymphadenopathy ABG 12/04/2021: 7.46/36/118 on 5 L -- Acute hypoxic respiratory failure Multifactorial Patient does have diffuse patchy alveolar opacities which are even appreciated on the CT chest which was done 11/14/2021 Underlying CHF is also playing its role Patient was diuresed 16L at [facility] and sputum culture was negative for any growth as per previous records Differential includes autoimmune process, DAH, infection I do think patient has underlying ILD like picture on top of diastolic CHF Continue with steroids for the time being Procalcitonin 0.71, CRP 14.02 Covid-19 PCR negative, influenza A/B negative Respiratory bio fire negative Absolute eosinophil count 610 on 12/02/2021 Patient does have lymphopenia Continue with diuretics O2 supplementation to keep O2 saturation between 88-92% Follow-up autoimmune work-up Negative for rheumatoid factor and anti-Pam 1 --DNR/DNI Plan: For comfort measures starting today Goal to take the patient home on hospice, given the need for oxygen currently it will be difficult to achieve goal of sending the patient home for hospice. No further recommendation for pulmonary perspective. We will sign off Please call directly with any questions Patient's Sudha [phone] Please note the above document was generated using voice recognition software. It may contain grammatical, syntax or spelling errors.Any formal questions or concerns about the content, text or information contained within the body of this dictation should be directly addressed to the provider for clarification. Admission and Anticipated Discharge Date Admission Date: November 30, 2021 Subjective Patient seen and examined at bedside. No acute distress. Early in the morning patient was tried on high flow but he desaturated and he was put back on CPAP Dr. Arriaga has been talking to the patient as well as family Review of Systems Review of Systems: All systems reviewed & are unremarkable except as noted in Subjective Physical Exam Physical Exam: Constitutional: No acute distress HEENT: EOMI, PERRLA Respiratory system: Decreased air entry bilaterally, no wheeze, no rhonchi, positive crackles appreciated bilateral CVS: S1-S2 positive, no murmurs or gallops Abdomen: Soft, nontender, nondistended, positive bowel sounds x4, obese Extremities: +2 pulses bilaterally radialis/ dorsalis pedis, no cyanosis, no edema Neuro: Awake alert oriented to self and place Psych: Normal mood and affect G/U: Positive Galan Skin: no rashes, warm and dry Lymphatic: no cervical or axillary lymphadenopathy Results & Data Results & Data ([facility]) Vital Signs (Past 12 Hours) Vital Signs Temp Pulse Pulse Resp BP Pulse Ox O2 Del Method 12/08/21 07:28 88 20 88 L High Flow Nasal Cannula 12/08/21 06:53 36.6 C 96 H 18 163/79 H 88 L High Flow Nasal Cannula 12/08/21 03:45 90 20 88 L High Flow Nasal Cannula 12/08/21 03:21 36.6 C 82 22 169/78 H 88 L High Flow Nasal Cannula 12/07/21 23:40 85 12/07/21 23:05 36.6 C 85 24 178/73 H 87 L High Flow Nasal Cannula O2 Flow Rate FiO2 12/08/21 07:28 50 100 12/08/21 06:53 50 100 12/08/21 03:45 50 100 12/08/21 03:21 50 100 12/07/21 23:40 12/07/21 23:05 50 100 Laboratory Results 12/08/21 06:45 12/08/21 06:44 PG Care Time/CCT Total # of Minutes Spent Total Time Spent with Patient: Total time spent is greater than 50% in coordination of care (as documented) at patient's floor/unit and/or counseling patient: Coding Level of Care Code 24459 Subseq Hosp Care Lvl 2 Diagnoses Acute respiratory failure with hypoxia J96.01 Pneumonia J18.9 Laterality: right Lung location: unspecified part of lung Pneumonia type: due to unspecified organism Abnormal chest CT R93.89
[2021-12-08] MEDS ORDERED: LORazepam 1 MG TAB SL PRN (11:04)
[2021-12-08] MEDS ORDERED: HYDROmorphone INJ 0.5 MG/0.5 ML SYR SC PRN (11:14)
--- NOTE | 2021-12-08 11:47 | Palliative Care Progress Note ---
Date of Service December 08, 2021 Assessment & Plan (1) Palliative care encounter: Plan: I met with David and his family twice this morning. He is very anxious to wean O2 with the hope of being able to go home. He has been told that we may not be successful. Unfortunately he has lost IV access and they are not able to reestablish access. We can give opioid subcutaneously. I ordered scheduled dosing of hydromorphone SC with prn dosing available. Would avoid long acting morphine with GFR of 37 to minimize risk of opioid toxicity. I also ordered ativan for his anxiety. We discussed adjusting medications to only those that are contributing to his comfort and he is agreeable to this. Answered family questions. They would like to proceed with plan to get him home with hospice in the event that he is able to be successfully weaned. Discussed with case management, RN and Dr. Caballero. (2) Acute and chronic respiratory failure with hypoxia: Admission and Anticipated Discharge Date Admission Date: November 30, 2021 Subjective Awake. Had severe back pain last night. Better this morning. Got relief from MS Contin. Denies dyspnea. O2 requirement now 60L 100% FiO2. Review of Systems Review of Systems: ESAS Pain 1/3 Dyspnea 0/3 Anxiety 2/3 Drowsiness 0/3 PPS 30% Physical Exam Constitutional: no acute distress ENMT: Mouth: + dry oral mucous membranes Respiratory: + uses accessory muscles Cardiovascular: Rate/Rhythm: + irregularly irregular Skin: warm and dry Neurologic: Speech / Cognition: normal cognition Psychiatric: Affect: + anxious affect Results & Data ([facility]) Vital Signs (Past 12 Hours) Vital Signs Temp Pulse Pulse Resp BP Pulse Ox Pulse Ox 12/08/21 10:52 80 22 86 L 12/08/21 08:00 85 12/08/21 08:00 12/08/21 08:00 88 L 12/08/21 07:28 88 20 88 L 12/08/21 06:53 97.9 F 96 H 18 163/79 H 88 L 12/08/21 03:45 90 20 88 L 12/08/21 03:21 97.9 F 82 22 169/78 H 88 L 12/07/21 23:40 85 O2 Del Method O2 Del Method O2 Flow Rate O2 Flow Rate FiO2 12/08/21 10:52 High Flow Nasal Cannula 60 100 12/08/21 08:00 12/08/21 08:00 High Flow Nasal Cannula 50 100 12/08/21 08:00 Nasal CPAP 50 12/08/21 07:28 High Flow Nasal Cannula 50 100 12/08/21 06:53 High Flow Nasal Cannula 50 100 12/08/21 03:45 High Flow Nasal Cannula 50 100 12/08/21 03:21 High Flow Nasal Cannula 50 100 12/07/21 23:40 PG Care Time/CCT Total # of Minutes Spent Total Time Spent: 90 Total Time Spent with Patient: Total time spent is greater than 50% in coordination of care (as documented) at patient's floor/unit and/or counseling patient: Coding Level of Care Code 22834 Prolonged Care (int'l) Diagnoses Palliative care encounter Z51.5 Acute and chronic respiratory failure with hypoxia J96.21
[2021-12-08] MEDS: HYDROmorphone INJ 0.5 MG/0.5 ML SYR SC SCH ×3 (13:40→19:53)
[2021-12-08] MEDS: SOLIFENACIN SUCCINATE PO SCH (14:07)
--- NOTE | 2021-12-08 17:46 | Hospitalist Progress Note ---
Date of Service December 08, 2021 Assessment & Plan (1) Acute encephalopathy: (2) Acute respiratory failure with hypoxia: (3) Paroxysmal atrial fibrillation with RVR: (4) Acute on chronic anemia: Plan 76-year-old male with PMH of pulmonary nodule, HLD, HTN, BPH, CKD stage IIIb, a nemia due to stage III CKD, moderate episode of recurrent major depressive disorder, lumbar spinal stenosis, cervical spinal stenosis, statin intolerance, on chronic low-dose systemic steroid for degenerative joint disease [per records] presented to hospital 11/30 from physical therapy because he appeared short of breath and ill-appearing. Of note patient was recently discharged from [facility] after transfer for acute respiratory failure requiring intubation and concern for cervical injury [found to have C1 fracture] due to recurrent falls at home. He was aggressively diuresed, intubated, extubated on 11/16/2021 and was to follow-up with neurosurgery as an outpatient on 12/20/2021. Patient was treated for concern of hospital-acquired pneumonia with course of cefepime and doxycycline. Patient was recommended for inpatient rehab but went home with home health. He was managed for the following Acute respiratory failure with hypoxia: Multifactorial, primary lung pathology may be complicated by underlying CHF Paroxysmal Atrial fibrillation: Patient remains in A. fib, did not tolerate heparin due to likely GI bleed. Acute on chronic anemia: Likely GI bleed STEFFI over chronic kidney disease stage IIIb Electrolytes abnormalities Altered mental status/likely acute metabolic encephalopathy: Alert and oriented x3 since 12/07/2021. Patient's on chronic medical conditions Code Status: DNR/DNI Patient had expressed interest in comfort care since last 2 days and was talking w/ his family, Palliative is also on board, explained the procedure of comfort care, patient wanted to be transitioned to his home level of oxygen settings w/ comfort care, once comfort care is instituted, we have very few hours to maybe 1 day before he expires/patient and his family verbalized understanding. Answered all the questions of patient and his family at bedside. Patient was transitioned to comfort care status 12/08/2021 AM. Admission and Anticipated Discharge Date Admission Date: November 30, 2021 Subjective Patient seen and examined at bedside as a follow-up of acute respiratory failure with hypoxia, CHF, STEFFI over CKD, altered mental status who is now comfort care status from 12/08/2021. Patient was lying in bed, on 60 L oxygen via CPAP, oriented x3, patient would like to be transition to his home settings of CPAP along with comfort care measures in an attempt to see if he can go to home. Patient explained that once we start weaning down oxygen, the condition might worsen and he might not survive, patient and his family understands the situation. Spent more than 30 minutes with patient's family and patient at bedside answering all their questions, explaining the process of comfort care and possible outcome in the short course of timeframe. Physical Exam Physical Exam: GENERAL: Alert and oriented x3, NAD, on 60L via nasal pillow HEENT: no pallor, no icterus. Pupils equal, round and reactive to light. Oral mucosa moist. NECK: No JVD, no neck masses. HEART: S1 and S2 heard. irregular rate and rhythm. No murmur, no gallop. RESPIRATORY SYSTEM: Normal AP diameter. No accessory muscle use. No wheezing, b/b crackles. ABDOMEN: Soft, bowel sounds present, nontender, no distention. CENTRAL NERVOUS SYSTEM: No facial droop. Speech is clear. Obeys simple commands. Moves extremities. EXTREMITIES: No edema, no erythema seen. UC noted. Results & Data Results & Data ([facility]) Vital Signs (Past 12 Hours) Vital Signs Temp Pulse Pulse Resp BP BP Pulse Ox 12/08/21 16:00 86 51 L 12/08/21 16:00 109/44 L 12/08/21 15:30 84 49 L 12/08/21 15:00 89 48 L 12/08/21 15:00 135/53 L 12/08/21 14:30 82 41 L 12/08/21 14:00 85 63 L 12/08/21 14:00 134/77 12/08/21 10:52 80 22 86 L 12/08/21 08:00 85 12/08/21 08:00 12/08/21 08:00 12/08/21 07:28 88 20 88 L 12/08/21 06:53 36.6 C 96 H 18 163/79 H 88 L Pulse Ox O2 Del Method O2 Del Method O2 Flow Rate O2 Flow Rate FiO2 12/08/21 16:00 12/08/21 16:00 12/08/21 15:30 12/08/21 15:00 12/08/21 15:00 12/08/21 14:30 12/08/21 14:00 12/08/21 14:00 12/08/21 10:52 High Flow Nasal Cannula 60 100 12/08/21 08:00 12/08/21 08:00 High Flow Nasal Cannula 50 100 12/08/21 08:00 88 L Nasal CPAP 50 12/08/21 07:28 High Flow Nasal Cannula 50 100 12/08/21 06:53 High Flow Nasal Cannula 50 100
[2021-12-08] MEDS: traZODone HCL 100 MG TAB PO SCH (20:07)
[2021-12-08] MEDS ORDERED: HYDROmorphone HCL 2 MG TAB PO PRN (20:55)
--- NOTE | 2021-12-09 18:08 | Discharge Summary ---
Date of Service December 08, 2021 Admission HPI Per Admitting Provider The patient is a 76 year old man with pmh HLD, HTN, obesity, BPH, CDK, chronic pain, anemia who presented to the ED from physical therapy because he appeared short of breath and ill appearing. The history is limited due to patient's mental status and history was taken from the at bedside and ED personnel. The patient reportedly was recently discharged from [facility] after transfer for acute respiratory failure requiring intubation about 1 week prior to admission where he was found to be in acute exacerbation of his heart failure and diuresed up to 13L of fluids with improvement in respiratory status. He was discharged home with home PT and was doing well until today, 11/30/2021 when the physical therapist noticed he was more short of breath. His was at bedside and reports that he was doing well until today. She denies that he has had any fever or chills, n/v/d, abdominal pain, chest pain, cough, shortness of breath, leg swelling, dysuria or other symptoms to the best of her ability. The patient was agitated and delirious during the exam and was somewhat combative and not answering questions appropriately. His reports that he has taken all of his medications as prescribed and was making some progress with physical therapy. Of note, discussed with patient's about code status and she insisted that she thinks he would want to be intubated and CPR performed if needed. Patient is made Full Code. In the ED, vitals were significant for hypoxia <80% (difficult to obtain accurate SpO2 due to patients agitation), HR 70-90s, 120s/40s. Labs were significant for WBC 8.4, hgb 7.2 (baseline ?8), VBG with pH 7.29, PCO2 56, Na 132, K 6.2, Cr 2.2 (baseline around 1.5-2), AST 54, ALT 50, tbili 0.8, ALP 125, CRP 14, PCT 0.71, ESR 67, UA pending. CXR with diffuse infiltrates in bilateral lungs R>L. CTH unremarkable. ECG NSR. He was put on nonrebreather with improvement in sats. Patient was agitated and required IM haldol, IV fentanyl and ativan. He was admitted to medicine for further work up and management. Admission Exam Per Admitting Provider Constitutional: WD/WN, vitals as above + obese, + altered mental status and + combative Eyes: PERRL, conjunctivae normal, anicteric sclerae ENMT: external ear and nose normal, oropharynx normal Neck: trachea midline, no thyromegaly Respiratory: normal respiratory effort; no respiratory distress, no labored breathing, no retractions, does not use accessory muscles, no cough and not tachypneic pulmonary exam limited due to patient being agitated and making noise, making auscultation difficult Cardiovascular: Rate/Rhythm: regular rate and regular rhythm difficult to obtain rest of heart sounds due to patient movement and agitation Gastrointestinal (Abdomen): normal bowel sounds, soft, nontender, no hepatosplenomegaly Musculoskeletal: no cyanosis or clubbing, extremities motor strength 5/5 Skin: multiple ecchymosis on forearms with some wounds that have been dressed, no signs of infection Psychiatric: Orientation: alert, oriented to person and oriented to place; + not oriented to time and + uncooperative Affect: + irritable affect and + angry affect Mood: + irritable mood Principal Diagnosis acute respiratory failure Discharge Exam see dec 08 progress note; pt not pronounced by undersigned Discharge Data Allergies Allergy/AdvReac Type Severity Reaction Status Date / Time Sulfa (Sulfonamide Allergy Mild rash Verified 12/25/12 11:22 Antibiotics) Consultations 11/30/21 13:57 ED Decision to Admit Stat 11/30/21 16:38 Consult Cardiology Routine Consult Pulmonology Routine 12/03/21 15:25 Consult Palliative Care Routine Ordered Studies 11/30/21 10:38 CT head/brain wo con Stat 11/30/21 15:27 CT chest diagnostic wo con Stat Hospital Course (1) Acute encephalopathy: (2) Acute respiratory failure with hypoxia: (3) Paroxysmal atrial fibrillation with RVR: (4) Acute on chronic anemia: Plan 76-year-old male with PMH of pulmonary nodule, HLD, HTN, BPH, CKD stage IIIb, anemia due to stage III CKD, moderate episode of recurrent major depressive disorder, lumbar spinal stenosis, cervical spinal stenosis, statin intolerance, on chronic low-dose systemic steroid for degenerative joint disease [per recor ds] presented to hospital 11/30 from physical therapy because he appeared short of breath and ill-appearing. Of note patient was recently discharged from [facility] after transfer for acute respiratory failure requiring intubation and concern for cervical injury [found to have C1 fracture] due to recurrent falls at home. He was aggressively diuresed, intubated, extubated on 11/16/2021 and was to follow-up with neurosurgery as an outpatient on 12/20/2021. Patient was treated for concern of hospital-acquired pneumonia with course of cefepime and doxycycline. Patient was recommended for inpatient rehab but went home with home health. He was managed for the following Acute respiratory failure with hypoxia: Multifactorial, primary lung pathology may be complicated by underlying CHF Paroxysmal Atrial fibrillation: Patient remains in A. fib, did not tolerate heparin due to likely GI bleed. Acute on chronic anemia: Likely GI bleed STEFFI over chronic kidney disease stage IIIb Electrolytes abnormalities Altered mental status/likely acute metabolic encephalopathy: Alert and oriented x3 since 12/07/2021 to prior institution of comfort care. Patient's on chronic medical conditions Code Status: DNR/DNI Patient was transitioned to comfort care status 12/08/2021 AM. Patient on December 08, 2021 at 2045 hrs. Cause of : Acute respiratory failure with hypoxia multifactorial in nature with primarily due to idiopathic lung pathology. Home Health Attestation I certify that this patient is under my care and that I, or a physicians assistant county attorney working with me, had a face to-face encounter that meets the home health [id number] encounter requirements with this patient. The encounter with the patient was in whole, or in part, for the following medical condition, which is the primary reason for home health care (list medical condition): I certify that, based on my findings, the following services are medically necessary home health services: My clinical findings support the need for the above services because: Further, I certify that my clinical findings support that this patient is homebound (i.e. absences from home require considerable and taxing effort and are for medical reasons or synagogue services or infrequently or of short duration when for other reasons) because: Certification for Home Health Services: Based on the above findings, I certify that this patient is confined to the home and needs intermittent long term care, physical therapy and/or speech therapy or continues to need occupational therapy. The patient is under my care, and I have initiated the establishment of the plan of care. This patient will be followed by a physician who will periodically review the plan of care. Total Time Total Time Spent Total Time Spent (In Minutes): 35 Discharge Plan Discharge Items Patient Disposition: Other Date/Time: 12/08/21 20:45
[2021-12-16 01:16] LABS: ANCA Screen Negative (Negative); Anti Cardiolipin Ab IgG <2.0 GPL-U/mL; Anti Cardiolipin Ab IgM <2.0 MPL-U/mL; Anti Nuclear Antibody Screen NEGATIVE (NEGATIVE); Anti-Cardiolipin Ab IgA <2.0 APL-U/mL; Anti-Centromere Ab <1.0 NEG AI (<1.0 NEG); Anti-SS-A <1.0 NEG AI (<1.0 NEG); Anti-SS-B <1.0 NEG AI (<1.0 NEG); Chromatin Antibody <1.0 NEG AI (<1.0 NEG); Complement C3 134 mg/dL (82-185); DNA ds Crithidia NEGATIVE (NEGATIVE); Microsomal Ab 3 IU/mL (<9); RNP Antibody <1.0 NEG AI (<1.0 NEG); Scleroderma Anti Scl-70 Ab <1.0 NEG AI (<1.0 NEG); Sm Antibody <1.0 NEG AI (<1.0 NEG)
== END 2021-12-08 23:06 | disposition expired | DRG 189 ==
LOC: ED 10:13 → EDINP 14:24 → SUATTDRO 14:24 → 4W 18:08 → 1E 12-05 13:16 → 2E 12-07 18:29